=== PATIENT | male | born 1975 | race Caucasian/White ===

== ENCOUNTER 2016-11-05 20:17 | Emergency (ER) | payer BC ==
[~2016-11-05] VITALS: Ht 170.2 cm; Wt 71.3 kg
[~2016-11-05 20:17] MED LIST: ALLDSR/24; BUPR200T2; ERGO1CAP35; INSUINJ7; PANT40TA; QUET1TAB34; SYN25
[2016-11-05 20:40] VITALS: TEMP 36.7; Ht 170.2 cm; Wt 71.3 kg
[2016-11-05] MEDS ORDERED: PROPARACAINE HCL 0.5% OP SOLN 15 ML BTL OP STA (20:59)
[2016-11-05] MEDS ORDERED: ARTIFICIAL TEARS OP OINT 3.5 GM TUBE OP ONE (21:30)
[2016-11-05 21:48] VITALS: BP 112/85; PULSE 71; O2SAT 98
--- NOTE | 2016-11-05 22:34 | EMERGENCY ROOM VISIT NOTE ---
History First contact with patient: 20:58 Chief Complaint: EYE ASSESSMENT Stated Complaint: EYE ALL RED, HURTS, HEADACHE, ITCHY History of Present Illness The patient is a 41 year old male who presents to the Emergency Room with complaints of right eye irritation since around 2:30 to 3 PM this afternoon. The patient reports redness an itchy sensation. The patient cannot rule out the possibility of foreign body as he has been outside extensively the past few days. He denies any recent runny nose, congestion, cough or sore throat. He has not had any significant drainage from the eye. The patient is a type I diabetic. He does have regular checks, and denies any history of glaucoma. Tetanus immunization is up-to-date. Review of Systems 10 system review was performed and was negative except for pertinent positives and negatives as indicated in history of present illness Past Medical/Surgical History Medical Problems: (1) Asthma, Unspecified (2) Bipol I, Rec Epis Or Current Depr, In Partial Or Unspec Rem (3) Calculus Of Ureter (4) Celiac Disease (5) Gastroparesis (6) Hypothyroidism Nos (7) Syst Lupus Erythematosis (8) Type 1 diabetes mellitus Surgical Problems: (1) No history of previous surgery Family History Unremarkable Social History Smoking Status: Never Smoker Alcohol Use: occasionally Marital Status: Occupation Status: employed Current/Historical Medications Miscellaneous Medications Bupropion (Wellbutrin Sr) Ergocalciferol (Vitamin D Cap) Fexofenadine/Pseudoephedrine (Debbie-D 24HR 180/240MG *) Insulin Regular (Novolin-R) Levothyroxine (Synthroid *) Pantoprazole (Protonix) Quetiapine Fumarate (Seroquel) Allergies Coded Allergies: Gluten (Verified Allergy, Unknown, 03/18/06) Physical Exam Vital Signs Date Time Temp Pulse Resp B/P Pulse Ox O2 Delivery O2 Flow Rate FiO2 11/05/16 21:48 71 18 112/85 98 Room Air 11/05/16 20:40 36.7 77 18 127/86 96 Room Air Right Eye Acuity: 20/25 Left Eye Acuity: 20/25 Pain Rating (0-10): 2.0 Physical Exam CONSTITUTIONAL: Healthy and well nourished. Alert and oriented X 3 with positive affect. HEENT: Normocephalic, atraumatic. Pupils equal, round and reactive. Examination shows mild erythema of the right eye medial [place]hal region. No mucopurulent or bloody drainage. EOMs intact without discomfort. No foreign debris noted within the lower conjunctival sac. Ears and nares are clear. NECK: Full active range of motion without discomfort. RESPIRATORY: Clear to auscultation bilaterally with no wheezing, crackles, rhonchi or stridor. CARDIOVASCULAR: Regular rate and rhythm with no murmurs, rubs or gallops. INTEGUMENTARY: No rash or other significant dermatologic conditions noted. NEUROLOGIC: No focal neurologic deficits noted. Medical Decision & Procedures Medications Administered Medications (Trade) Dose Ordered Sig/Giovana Route Start Time Stop Time Status Last Admin Dose Admin Artificial Tears (Lacri-Lube Oph Oint) 1 appln NOW ONCE OP 11/05/16 21:30 11/05/16 21:31 DC 11/05/16 21:35 1 APPLN Procedure 2 Alcaine eyedrops were instilled into each eye. This did relieve the patient' s right eye discomfort. Automatic tonometry was used with normal intraocular pressures of 16.5 of the affected right eye, 18.5 of the left eye. Slit lamp exam was then performed to show no evidence for foreign debris within the lower conjunctival sac. No evidence for iritis. Negative cell and flare. Negative hyphema. Fluorescein exam shows no evidence for corneal abrasions or other lesions. There is fluorescein uptake within the medial conjunctival region. No obvious foreign bodies noted within the conjunctiva. ED Course Patient history and physical exam were performed. Nurse's notes were reviewed. Pressure tonometry, slit lamp and fluorescein exam were all normal. The patient was dispensed Lacri-Lube, and encouraged to intermittently apply a cool compress to the eye. Ibuprofen or Tylenol as needed for pain. The patient was instructed to follow-up with his eye doctor if symptoms are not improving within the next 36-48 hours. Return to the emergency department for any significantly worsening symptoms or concerns. The patient was happy with plan of care, and denied any discomfort at the conclusion of my exam. Impression Primary Impression: Discomfort of right eye Departure Information Dispostion Home / Self-Care Condition GOOD Forms HOME CARE DOCUMENTATION FORM, IMPORTANT VISIT INFORMATION Patient Instructions My [facility] [employer] Additional Instructions Intermittently apply an ice pack for swelling. Use Lacri-Lube as needed for additional soothing relief. Ibuprofen or Tylenol if needed for pain. Follow-up with your eye doctor if symptoms are not improving within the next 24- 48 hours. Return to the Emergency Department for significantly worsening pain, visual disturbance or other concerning symptoms.
== END 2016-11-05 21:49 | disposition home or self-care (01) ==
LOC: C.EDB 20:18 → C.EDC 21:49
DX: H57.11 Ocular pain, right eye (principal); E10.9 Type 1 diabetes mellitus without complications; Z87.442 Personal history of urinary calculi; K90.0 Celiac disease; K31.84 Gastroparesis; E03.9 Hypothyroidism, unspecified; M32.9 Systemic lupus erythematosus, unspecified; Z79.4 Long term (current) use of insulin; Z79.899 Other long term (current) drug therapy

== ENCOUNTER 2023-10-03 20:20 | Inpatient (IN) ==
[2023-10-03] MEDS: SODIUM CHLORIDE 0.9% 1,000 ML IV SCH (20:52)
[2023-10-03] MEDS: KETOROLAC TROMETHAMINE 15 MG/ML VIAL IV ONE (20:53)
--- NOTE | 2023-10-03 20:53 | Emergency Department Note ---
Impression & Plan Acute flank pain, Hydronephrosis, Renal colic ED Provider Note NAME: CLINTON AVALOS AGE: 48 SEX: M : 1975 ARRIVES VIA: Walk-In INFORMANT: Patient ED PROVIDER(S): Gustavo Jones DO CHIEF COMPLAINT: right flank pain HPI: Patient is a 48-year-old male with a past medical history of diabetes, celiac disease for right flank pain rating to the right lower quadrant. Associate with nausea but no vomiting. Denies any headache or change in vision. No chest pain or shortness of breath. Symptoms have been present further over a week. He admits to dysuria urgency and frequency. No other exacerbating or remitting factors. He notes this feels like his previous kidney stones. He does have some dysuria. ADDITIONAL HISTORY OBTAINED: Per HPI Chronic Medical/Social Conditions Affecting Care: Per HPI PAST MEDICAL HISTORY:See Below PAST SURGICAL HISTORY:See Below FAMILY HISTORY:See Below SOCIAL HISTORY:See Below HOME MEDICATIONS:See Below ALLERGIES:See Below VITALS:See Below PHYSICAL EXAMINATION: GENERAL: Sitting up in bed, alert, uncomfortable and slightly diaphoretic EYE EXAM: normal conjunctiva. PERRL and EOM's grossly intact. OROPHARYNX: mucous membranes are moist NECK: supple, no nuchal rigidity, no adenopathy, non-tender LUNGS: Clear to auscultation. Normal chest wall mechanics HEART: no murmurs, S1 normal and S2 normal ABDOMEN: abdomen soft, non-tender, normo-active bowel sounds, no masses, no rebound or guarding. BACK: Back is symmetrical on inspection and there is no deformity, no midline tenderness, no CVA tenderness. SKIN: no rashes and no bruising UPPER EXTREMITIES: upper extremities are grossly normal. LOWER EXTREMITIES: No pitting edema. NEURO EXAM: Normal sensorium, cranial nerves II-XII grossly intact, normal speech, no gross weakness of arms, no gross weakness of legs. MEDICAL DECISION MAKING: Patient is a 48-year-old male who presents ER for right flank pain which has been present for the past week. IV was established blood was obtained. Labs show no significant leukocytosis or anemia. BMP on LFTs bilirubin lipase is unremarkable. UA was initially extremely contaminated. Repeat was only slightly contaminated but did have leuks and whites. Patient was given IV Rocephin. He was given Toradol and morphine. CT shows a 10 mm stone with hydronephrosis. Patient was updated at bedside and with the signs of stone in duration and has been present combination with the pain discussed with the hospitalist for further evaluation management treatment. Consults/Care Managements Discussions: Per MDM Triage Nursing notes reviewed. Limited review of prior medical records performed Vital Signs: reviewed and remarkable for no significant abnormalities Differential diagnosis: Differential diagnoses includes but is not limited to gastritis, peptic ulcer disease, GERD, gallbladder disease, pancreatitis, small bowel obstruction, appendicitis, diverticulitis, hernia, urinary tract infection, torsion, perforation, trauma, infectious. ER treatment provided: See below Diagnostics interpreted by me include EKG and cardiac monitoring as listed below: -Cardiac Monitoring: An order was placed for continuous cardiac monitoring. The monitor shows a rate of 80 with sinus rhythm. -ECG: none -Laboratory studies:Interpreted by me as stated above in MDM and shown below. Imaging studies: Xrays: As interpreted by me:none CTs show: CT abdomen pelvis per my preliminary interpretation showed a large stone in the right distal ureter CT of the pelvis per radiology as described above Procedures:none Critical Care: None Past Med/Surg History Medical History (Updated 10/03/23 @ 22:56 by Gustavo Jones DO) Celiac disease Kidney stone Type 1 diabetes mellitus Family History (Updated 09/26/18 @ 20:33 by Anjel Preston) Other No significant family history Social History Smoking Status: Never smoker Preferred Language: Macedonian Feels Safe at Home: Yes Allergies Allergies Allergy/AdvReac Type Severity Reaction Status Date / Time gluten Allergy Unknown Celiac Verified 09/26/18 18:17 Disease Home Meds Home Medications Medication Instructions Recorded Confirmed bupropion HCl 300 mg 24 hr tablet, 300 mg PO QAM 09/18/18 09/26/18 extended release (Wellbutrin XL) clindamycin 1 %-benzoyl peroxide 5 1 applic topical DAILY 09/18/18 09/26/18 % topical gel dextroamphetamine-amphetamine 20 20 mg PO BID 09/18/18 09/26/18 mg tablet (Adderall) insulin aspart U-100 100 unit/mL 1 sliding scale dose subcut UD 09/18/18 09/26/18 subcutaneous cartridge (Novolog PenFill U-100 Insulin aspart) lamotrigine 200 mg tablet 300 mg PO HS 09/18/18 09/26/18 (Lamictal) levothyroxine 100 mcg tablet 100 mcg PO DAILY 09/18/18 09/26/18 (Synthroid) lorazepam 0.5 mg tablet (Ativan) 0.5 mg PO DAILY PRN Anxiety 09/18/18 09/26/18 metronidazole 0.75 % topical gel 1 applic topical BID 09/18/18 09/26/18 (Rosadan) quetiapine 150 mg tablet,extended 150 mg PO HS 09/18/18 09/26/18 release 24 hr (Seroquel XR) temazepam 30 mg capsule 30 mg PO HS PRN Sleep 09/26/18 09/26/18 Previous Rx's Medication Instructions Recorded oxycodone 5 mg tablet 5 - 10 mg (1 - 2 x 5 mg) PO Q4H 09/19/18 PRN pain #14 tabs oxycodone 5 mg tablet 5 mg PO Q6H PRN pain #14 tabs 09/26/18 Results & Data (ED) Vital Signs Vital Signs - 24 hr 10/03/23 20:23 10/03/23 20:36 10/03/23 20:38 Temperature 36.5 C Temperature Source Temporal Artery Scan Pulse Rate 91 H 82 80 Pulse Rhythm Regular Respiratory Rate 16 16 Blood Pressure 128/95 Blood Pressure Mean 106 Pulse Oximetry 96 96 Oxygen Delivery Method Room Air Room Air Sepsis Recent Fever Within 48 Hours No Sepsis New/Unexplained Change in Mental Status No Sepsis Action Taken by Nursing No Action Required Laboratory Data 10/03/23 20:37 10/03/23 20:37 Lab Results 10/03/23 10/03/23 10/03/23 Range/Units 20:37 21:50 21:56 WBC 10.42 (4.8-10.8) K/ul RBC 5.48 (4.70-6.10) M/uL Hgb 16.7 (14.0-18.0) g/dl Hct 47.1 (42.0-52.0) % MCV 85.9 (80.0-100.0) fL MCH 30.5 (25.0-34.0) pg MCHC 35.5 (32.0-36.0) g/dL RDW Std Deviation 34.7 L (36.4-46.3) fL RDW Coeff of Jose Daniel 11.2 L (11.5-14.5) % Plt Count 334 (130-400) K/uL MPV 10.1 (9.4-12.4) fL Immature Gran % (Auto) 0.2 % Neut % (Auto) 65.8 % Lymph % (Auto) 23.3 % [place] % (Auto) 8.1 % Eos % (Auto) 2.0 % Baso % (Auto) 0.6 % Neut # (Auto) 6.86 H (1.40-6.50) K/uL Lymph # (Auto) 2.43 (1.20-3.40) K/uL [place] # (Auto) 0.84 H (0.11-0.59) K/uL Eos # (Auto) 0.21 (0.00-0.50) K/uL Baso # (Auto) 0.06 (0.00-0.20) K/uL Immature Gran # (Auto) 0.02 (0.01-0.20) K/uL Sodium 141 (136-145) mmol/L Potassium 3.7 (3.5-5.1) mmol/L Chloride 107 (98-107) mmol/L Carbon Dioxide 26 (21-32) mmol/L Anion Gap 8 (3-11) BUN 15 (6-23) mg/dl Creatinine 0.80 (0.6-1.4) mg/dl Est Cr Clr Drug Dosing 104.4 ml/min Est GFR ( Amer) 121.6 ml/min Est GFR (Non-Af Amer) 104.9 ml/min BUN/Creatinine Ratio 18.8 (10-20) Glucose 82 (70-99(Fasting)) mg/dl POC Glucose 84 (70-99) mg/dl Calcium 9.2 (8.6-10.3) mg/dl Total Bilirubin 0.7 (0.2-1.0) mg/dl AST 18 (13-39) U/L ALT 21 (7-52) U/L Alkaline Phosphatase 62 (34-104) U/L Total Protein 6.8 (6.0-8.3) gm/dl Albumin 4.3 (3.4-5.0) gm/dl Globulin 2.5 (2.5-4.0) gm/dl Albumin/Globulin Ratio 1.7 (0.9-2) Lipase 14 (11-82) U/L Urine Color Dark Yellow Dark Yellow Urine Appearance Cloudy A Clear (Clear) Urine pH 5.0 5.5 (4.5-7.5) Ur Specific [place] 1.033 H 1.029 (1.000-1.030) Urine Protein Trace H Negative (Negative) Urine Glucose (UA) 2+ H 2+ H (Negative) Urine Ketones Trace H Trace H (Negative) Urine Blood 2+ H 1+ H (Negative) Urine Nitrite Negative Negative (Negative) Urine Bilirubin Negative Negative (Negative) Urine Urobilinogen Negative Negative (Negative) Ur Leukocyte Esterase Trace H Trace H (Negative) Urine WBC (Auto) 5-10 H 5-10 H (0-5) /hpf Urine RBC (Auto) 5-10 H 0-4 (0-4) /hpf U Hyaline Cast (Auto) 1-5 1-5 (0-5) /lpf U Epithel Cells (Auto) 20-30 H 5-10 H (0-5) /lpf Urine Bacteria (Auto) Negative Negative (Negative) Urine Crystals Not Reportable Calcium Oxalate Crystal Present A Present A (None Prsent) Urine Mucus Present A Present A (None Prsent) Administered Medications Sodium Chloride (Nss) 1,000 mls @ 999 mls/hr IV .Q1H1M BRAYDEN Stop: 10/03/23 23:00 Last Admin: 10/03/23 21:55 Dose: 999 mls/hr Documented By: Infusion: 10/03/23 21:53 Dose: Infused Documented By: Admin: 10/03/23 20:52 Dose: 999 mls/hr Documented By: ANDREE Discontinued Medications Sodium Chloride (Nss) 1,000 mls @ 999 mls/hr IV .Q1H1M ONE Stop: 10/03/23 22:00 Last Admin: 10/03/23 21:55 Dose: 999 mls/hr Documented By: ANDREE Ketorolac Tromethamine (Ketorolac Tromethamine 15 Mg/Ml Vial) 15 mg IV NOW ONE Stop: 10/03/23 20:50 Last Admin: 10/03/23 20:53 Dose: 15 mg Documented By: ANDREE Morphine Sulfate (Morphine Sulfate 10 Mg/Ml Carp/Vial) 6 mg IV NOW STA Stop: 10/03/23 22:33 Last Admin: 10/03/23 22:40 Dose: 6 mg Documented By: ANDREE Imaging Data Radiologist's Impression: Abdomen/Pelvis CT 10/03/23 20:48 Exam(s): CT ABDOMEN + PELVIS Without Contrast EXAM: CT Abdomen and Pelvis Without Intravenous Contrast CLINICAL HISTORY: Right flank Pain. TECHNIQUE: Axial computed tomography images of the abdomen and pelvis without intravenous contrast. CTDI is 20.15 mGy and DLP is 1021.19 mGy-cm. Automated exposure control was utilized for the study. A dose lowering technique was utilized adhering to the principles of ALARA. COMPARISON: Abdominal ultrasound 09/26/2018 FINDINGS: Lung bases: Unremarkable. No mass. No consolidation. ABDOMEN: Liver: Unremarkable. Gallbladder and bile ducts: Unremarkable. No calcified stones. No ductal dilation. Pancreas: Unremarkable. No ductal dilation. Spleen: Unremarkable. No splenomegaly. Adrenals: Unremarkable. No mass. Kidneys and ureters: Mild right hydronephrosis secondary to a 5 x 6 x 10 mm distal right ureteral calculus. The left kidney is unremarkable. Stomach and bowel: Unremarkable. No obstruction. No mucosal thickening. PELVIS: Appendix: Normal appendix. Bladder: Unremarkable. No stones. Reproductive: Unremarkable as visualized. ABDOMEN and PELVIS: Intraperitoneal space: Unremarkable. No free air. No significant fluid collection. Bones/joints: There are degenerative changes of the spine. No acute fracture. No dislocation. Soft tissues: Unremarkable. Vasculature: Unremarkable. No abdominal aortic aneurysm. Lymph nodes: Unremarkable. No enlarged lymph nodes. IMPRESSION: Mild right hydronephrosis secondary to a 5 x 6 x 10 mm distal right ureteral calculus. Electronically signed by: Tamera White MD 10/03/23 21:58 PM Discharge Plan Visit Data Chief Complaint: Kidney Stone Stated Complaint: UNABLE TO URINATE, PAIN ED Provider: Gustavo Jones Discharge Problem: Acute flank pain, Hydronephrosis, Renal colic Forms Stand Alone Forms: My [facility] [employer] Data Prescriptions Prescriptions: No Action temazepam 30 mg capsule 30 mg PO HS PRN (Reason: Sleep) oxycodone 5 mg tablet 5 mg PO Q6H PRN (Reason: pain) Qty: 14 0RF lamotrigine [Lamictal] 200 mg tablet 300 mg PO HS clindamycin-benzoyl peroxide 1-5 % gel 1 applic topical DAILY levothyroxine [Synthroid] 100 mcg tablet 100 mcg PO DAILY lorazepam [Ativan] 0.5 mg tablet 0.5 mg PO DAILY PRN (Reason: Anxiety) dextroamphetamine-amphetamine [Adderall] 20 mg tablet 20 mg PO BID metronidazole [Rosadan] 0.75 % gel 1 applic topical BID Novolog PenFill U-100 Insulin 100 unit/mL Cartridge 1 sliding scale dose SUBCUT UD Rx Instructions: Via insulin pump bupropion HCl [Wellbutrin XL] 300 mg tablet extended release 24 hr 300 mg PO QAM quetiapine [Seroquel XR] 150 mg tablet extended release 24 hr 150 mg PO HS oxycodone 5 mg tablet 5 - 10 mg PO Q4H PRN (Reason: pain) Qty: 14 0RF Referrals Referrals: Ramonita Pisano MD [Primary Care Provider] - Discharge Problem: Hydronephrosis Qualifiers: Hydronephrosis type: unspecified Qualified Code(s): N13.30 - Unspecified hydronephrosis
[2023-10-03 21:11] LABS: Appearance Urine Cloudy (Clear); Bacteria Urine Automated Negative (Negative); Bilirubin Urine Negative (Negative); Blood Urine 2+ (Negative); Color Urine Dark Yellow; Epithelial Cell Urine Auto 20-30 /lpf (0-5); Glucose Urine UA 2+ (Negative); Ketones Urine Trace (Negative); Leukocyte Esterase Urine Trace (Negative); Nitrite Urine Negative (Negative); Protein Urine Trace (Negative); Specific Gravity Urine 1.033 (1.000-1.030); Urobilinogen Urine Negative (Negative)
[2023-10-03 21:24] LABS: Albumin Level 4.3 gm/dl (3.4-5.0); Basophils # (auto) 0.06 K/uL (0.00-0.20); Basophils % (auto) 0.6 %; Bilirubin,Total 0.7 mg/dl (0.2-1.0); Calcium 9.2 mg/dl (8.6-10.3); Eosinophils # (auto) 0.21 K/uL (0.00-0.50); Hematocrit (blood only) 47.1 % (42.0-52.0); Hemoglobin 16.7 g/dl (14.0-18.0); Immature Granulocytes # (auto) 0.02 K/uL (0.01-0.20); Immature Granulocytes % (auto) 0.2 %; Lymphocytes # (auto) 2.43 K/uL (1.20-3.40); Lymphocytes % (auto) 23.3 %; Mean Corpuscular Hemoglobin 30.5 pg (25.0-34.0); Mean Corpuscular Hgb Conc 35.5 g/dL (32.0-36.0); Mean Corpuscular Volume 85.9 fL (80.0-100.0); Mean Platelet Volume 10.1 fL (9.4-12.4); Monocytes # (auto) 0.84 K/uL (0.11-0.59); Monocytes % (auto) 8.1 %; Neutrophils # (auto) 6.86 K/uL (1.40-6.50); Neutrophils % (auto) 65.8 %; Platelet Count 334 K/uL (130-400); Potassium 3.7 mmol/L (3.5-5.1); RDW Coefficient of Variation 11.2 % (11.5-14.5); RDW Standard Deviation 34.7 fL (36.4-46.3); Red Blood Count 5.48 M/uL (4.70-6.10); White Blood Count 10.42 K/ul (4.8-10.8)
[2023-10-03 21:25] LABS: Calcium Oxalate Crystals Urine Present (None Prsent); Mucus Urine Present (None Prsent)
[2023-10-03 21:30] LABS: Albumin Globulin Ratio 1.7 (0.9-2); BUN Creatinine Ratio 18.8 (10-20); Creatinine Clr Calc Pharmacy 104.4 ml/min; Est GFR (African American) 121.6 ml/min; Est GFR (Non-African American) 104.9 ml/min; Globulin 2.5 gm/dl (2.5-4.0); Total Protein 6.8 gm/dl (6.0-8.3)
[2023-10-03] MEDS: SODIUM CHLORIDE 0.9% 1,000 ML IV ONE (21:55)
--- NOTE | 2023-10-03 21:59 | CT Scan Report ---
Exam(s): CT ABDOMEN + PELVIS Without Contrast EXAM: CT Abdomen and Pelvis Without Intravenous Contrast CLINICAL HISTORY: Right flank Pain. TECHNIQUE: Axial computed tomography images of the abdomen and pelvis without intravenous contrast. CTDI is 20.15 mGy and DLP is 1021.19 mGy-cm. Automated exposure control was utilized for the study. A dose lowering technique was utilized adhering to the principles of ALARA. COMPARISON: Abdominal ultrasound 09/26/2018 FINDINGS: Lung bases: Unremarkable. No mass. No consolidation. ABDOMEN: Liver: Unremarkable. Gallbladder and bile ducts: Unremarkable. No calcified stones. No ductal dilation. Pancreas: Unremarkable. No ductal dilation. Spleen: Unremarkable. No splenomegaly. Adrenals: Unremarkable. No mass. Kidneys and ureters: Mild right hydronephrosis secondary to a 5 x 6 x 10 mm distal right ureteral calculus. The left kidney is unremarkable. Stomach and bowel: Unremarkable. No obstruction. No mucosal thickening. PELVIS: Appendix: Normal appendix. Bladder: Unremarkable. No stones. Reproductive: Unremarkable as visualized. ABDOMEN and PELVIS: Intraperitoneal space: Unremarkable. No free air. No significant fluid collection. Bones/joints: There are degenerative changes of the spine. No acute fracture. No dislocation. Soft tissues: Unremarkable. Vasculature: Unremarkable. No abdominal aortic aneurysm. Lymph nodes: Unremarkable. No enlarged lymph nodes. IMPRESSION: Mild right hydronephrosis secondary to a 5 x 6 x 10 mm distal right ureteral calculus. Electronically signed by: Tamera White MD 10/03/23 21:58 PM
[2023-10-03 22:13] LABS: Appearance Urine Clear (Clear); Bacteria Urine Automated Negative (Negative); Bilirubin Urine Negative (Negative); Blood Urine 1+ (Negative); Color Urine Dark Yellow; Glucose Urine UA 2+ (Negative); Ketones Urine Trace (Negative); Leukocyte Esterase Urine Trace (Negative); Nitrite Urine Negative (Negative); Protein Urine Negative (Negative); RBC Urine Automated 0-4 /hpf (0-4); Specific Gravity Urine 1.029 (1.000-1.030); Urobilinogen Urine Negative (Negative); pH Urine 5.5 (4.5-7.5)
[2023-10-03 22:25] LABS: Calcium Oxalate Crystals Urine Present (None Prsent); Mucus Urine Present (None Prsent)
[2023-10-03] MEDS: MoRPHine SULFATE 10 MG/ML CARP/VIAL IV STA (22:40)
--- NOTE | 2023-10-04 00:46 | History & Physical Report ---
Date of Service October 04, 2023 Assessment & Plan (1) Renal colic: Plan: 48-year-old male with past medical history significant for type 1 diabetes on insulin pump, hypothyroidism, polyglandular autoimmune syndrome, hyperlipidemia, diabetic retinopathy, asthma mild persistent, allergic sinusitis, celiac disease, sleepwalking and eating, attention 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 hyperactivity, history of kidney stones, bipolar 2 disorder presents with right renal colic. Patient states he is having right flank pain going on for the last 10 days. Pain is disturbing his sleep. As the pain is not getting better and also recently noted some blood in the urine and burning micturition came to the ER today. When he came in pain was 7/10 in severity. Currently after pain medication pain is improved. Normal bowel movements. Denies any fevers. No chest pain or shortness of breath. No cough. No headache. No runny nose or sore throat. Resting comfortably and hemodynamically stable. Renal colic Right side CT scan showing mild right hydronephrosis secondary to 5 x 10 mm distal right ureteral calculus N.p.o., IV fluids, IV morphine as needed P.o. Flomax Consult urology in a.m. Possible UTI Rocephin Follow cultures Type 1 diabetes On insulin pump added dextrose to fluids as patient had hypoglycemia close monitor. Asthma Continue home inhalers 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 hyperactivity Bipolar 2 disorder Continue home medications Hypothyroidism On Synthyroid GERD On omeprazole DVT prophylaxis SCDs Disposition Medical floor Full code History of Present Illness Chief Complaint: Right renal colic Primary Care Provider: Ramonita Pisano MD 48-year-old male with past medical history significant for type 1 diabetes on insulin pump, hypothyroidism, polyglandular autoimmune syndrome, hyperlipidemia, diabetic retinopathy, asthma mild persistent, allergic sinusitis, celiac dise ase, sleepwalking and eating, attention 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 hyperactivity, history of kidney stones, bipolar 2 disorder presents with right renal colic. Patient states he is having right flank pain going on for the last 10 days. Pain is disturbing his sleep. As the pain is not getting better and also recently noted some blood in the urine and burning micturition came to the ER today. When he came in pain was 7/10 in severity. Currently after pain medication pain is improved. Normal bowel movements. Denies any fevers. No chest pain or shortness of breath. No cough. No headache. No runny nose or sore throat. Resting comfortably and hemodynamically stable. Past medical history. As mentioned above Past surgical history. Colonoscopy and EGD. Foot surgery. Removal of kidney stone, over 2 cm in 2005. Social history. . No smoking. Alcohol socially. No drug use. Family history. Father had dementia. Diabetes. Kidney stones. Mother had a heart attack at age 68. Maternal grandmother had breast cancer. Allergies Allergy/AdvReac Type Severity Reaction Status Date / Time gluten Allergy Unknown Celiac Verified 10/03/23 23:52 Disease Home Medications Medication Instructions Recorded Confirmed Type bupropion HCl 300 mg 24 hr tablet, 300 mg PO QAM 09/18/18 10/03/23 History extended release (Wellbutrin XL) dextroamphetamine-amphetamine 20 20 mg PO QAM 09/18/18 10/03/23 History mg tablet (Adderall) levothyroxine 100 mcg tablet 100 mcg PO DAILY 09/18/18 10/04/23 History (Synthroid) lorazepam 0.5 mg tablet (Ativan) 0.5 mg PO DAILY PRN Anxiety 09/18/18 10/04/23 History quetiapine 150 mg tablet,extended 150 mg PO HS 09/18/18 10/04/23 History release 24 hr (Seroquel XR) insulin aspart U-100 100 unit/mL 70 unit continuous subcutaneous 10/03/23 10/03/23 History subcutaneous solution infusion DAILY omega-3 fatty acids 1,000 mg 1,000 mg PO BID 10/03/23 10/04/23 History capsule albuterol sulfate 90 mcg/actuation 2 puff inhalation Q4H PRN Wheezing 10/04/23 10/04/23 History aerosol inhaler atorvastatin 20 mg tablet 20 mg PO QAM 10/04/23 10/04/23 History benzonatate 100 mg capsule 100 mg PO TID PRN Cough 10/04/23 10/04/23 History fexofenadine 180 mg tablet 180 mg PO DAILY PRN Allergy 10/04/23 10/04/23 History Symptoms fluticasone 250 mcg-salmeterol 50 1 inh inhalation BID 10/04/23 10/04/23 History mcg/dose blistr powdr for inhalation fluticasone propionate 50 2 spray intranasal DAILY 10/04/23 10/04/23 History mcg/actuation nasal spray,suspension ketoconazole 2 % shampoo 1 applic topical .2XW 10/04/23 10/04/23 History lamotrigine 200 mg tablet 200 mg PO DAILY 10/04/23 10/04/23 History omeprazole 20 mg capsule,delayed 20 mg PO DAILYBB 10/04/23 10/04/23 History release selenium sulfide 2.5 % lotion 1 applic topical DAILY 10/04/23 10/04/23 History sildenafil 50 mg tablet 50 mg PO .UD PRN Sexual Activity 10/04/23 10/04/23 History temazepam 30 mg capsule 30 mg PO HS PRN Insomnia 10/04/23 10/04/23 History Past Med/Surg History Medical History (Updated 10/03/23 @ 22:56 by Gustavo Jones DO) Celiac disease Kidney stone Type 1 diabetes mellitus Family History (Updated 09/26/18 @ 20:33 by Anjel Preston) Other No significant family history Social History Smoking Status: Never smoker Hx Alcohol Use: Yes Alcohol type: beer and hard liquor Hx Substance Use: No Preferred Language: [place] Communication Ability: Effective Silk Spotter Required: No Beliefs That Will Affect Care: None Current Living Situation: Spouse Feels Safe at Home: Yes Safety Concerns: Feels Safe At This Time Assistive Devices: Glasses Review of Systems Review of Systems: All systems reviewed & are unremarkable except as noted in HPI & below Physical Exam Physical Exam: General- Not in distress Head- atraumatic Eyes- PERRL. ENT- oropharynx clear Neck- supple, no JVD. Lungs- clear to auscultation no wheezing or crackles. Heart- regular rhythm; no murmur, no gallop. Abdomen- normal bowel sounds, soft, nontender, no distension. Extremities- no pretibial edema, no erythema seen. Neuro- alert, oriented PERRL no facial palsy; no dysarthria; Results & Data Results & Data Vital Signs (Past 12 Hours) Vital Signs Temp Pulse Resp BP Pulse Ox O2 Del Method 10/03/23 20:38 80 10/03/23 20:36 82 16 96 Room Air 10/03/23 20:23 36.5 C 91 H 16 128/95 96 Room Air Diagnostic Findings Laboratory Results WBC 10.42 K/ul (4.8-10.8) 10/03/23 20:37 RBC 5.48 M/uL (4.70-6.10) 10/03/23 20:37 Hgb 16.7 g/dl (14.0-18.0) 10/03/23 20:37 Hct 47.1 % (42.0-52.0) 10/03/23 20:37 MCV 85.9 fL (80.0-100.0) 10/03/23 20: MCH 30.5 pg (25.0-34.0) 10/03/23 20: MCHC 35.5 g/dL (32.0-36.0) 10/03/23 20: RDW Std Deviation 34.7 fL (36.4-46.3) L 10/03/23 20: RDW Coeff of Jose Daniel 11.2 % (11.5-14.5) L 10/03/23 20: Plt Count 334 K/uL (130-400) 10/03/23 20:37 MPV 10.1 fL (9.4-12.4) 10/03/23 20:37 Immature Gran % (Auto) 0.2 % 10/03/23 20:37 Neut % (Auto) 65.8 % 10/03/23 20:37 Lymph % (Auto) 23.3 % 10/03/23 20:37 [place] % (Auto) 8.1 % 10/03/23 20:37 Eos % (Auto) 2.0 % 10/03/23 20:37 Baso % (Auto) 0.6 % 10/03/23 20:37 Neut # (Auto) 6.86 K/uL (1.40-6.50) H 10/03/23 20:37 Lymph # (Auto) 2.43 K/uL (1.20-3.40) 10/03/23 20:37 [place] # (Auto) 0.84 K/uL (0.11-0.59) H 10/03/23 20:37 Eos # (Auto) 0.21 K/uL (0.00-0.50) 10/03/23 20:37 Baso # (Auto) 0.06 K/uL (0.00-0.20) 10/03/23 20:37 Immature Gran # (Auto) 0.02 K/uL (0.01-0.20) 10/03/23 20:37 Sodium 141 mmol/L (136-145) 10/03/23 20:37 Potassium 3.7 mmol/L (3.5-5.1) 10/03/23 20:37 Chloride 107 mmol/L (98-107) 10/03/23 20:37 Carbon Dioxide 26 mmol/L (21-32) 10/03/23 20:37 Anion Gap 8 (3-11) 10/03/23 20:37 BUN 15 mg/dl (6-23) 10/03/23 20:37 Creatinine 0.80 mg/dl (0.6-1.4) 10/03/23 20:37 Est Cr Clr Drug Dosing 104.4 ml/min 10/03/23 20:37 Est GFR ( Amer) 121.6 ml/min 10/03/23 20:37 Est GFR (Non-Af Amer) 104.9 ml/min 10/03/23 20:37 BUN/Creatinine Ratio 18.8 (10-20) 10/03/23 20:37 Glucose 82 mg/dl (70-99(Fasting)) 10/03/23 20:37 POC Glucose 84 mg/dl (70-99) 10/03/23 21:56 Calcium 9.2 mg/dl (8.6-10.3) 10/03/23 20:37 Total Bilirubin 0.7 mg/dl (0.2-1.0) 10/03/23 20:37 AST 18 U/L (13-39) 10/03/23 20:37 ALT 21 U/L (7-52) 10/03/23 20:37 Alkaline Phosphatase 62 U/L (34-104) 10/03/23 20:37 Total Protein 6.8 gm/dl (6.0-8.3) 10/03/23 20:37 Albumin 4.3 gm/dl (3.4-5.0) 10/03/23 20:37 Globulin 2.5 gm/dl (2.5-4.0) 10/03/23 20:37 Albumin/Globulin Ratio 1.7 (0.9-2) 10/03/23 20:37 Lipase 14 U/L (11-82) 10/03/23 20:37 Urine Color Dark Yellow 10/03/23 21:50 Urine Appearance Clear (Clear) 10/03/23 21:50 Urine pH 5.5 (4.5-7.5) 10/03/23 21:50 Ur Specific [place] 1.029 (1.000-1.030) 10/03/23 21:50 Urine Protein Negative (Negative) 10/03/23 21:50 Urine Glucose (UA) 2+ (Negative) H 10/03/23 21:50 Urine Ketones Trace (Negative) H 10/03/23 21:50 Urine Blood 1+ (Negative) H 10/03/23 21:50 Urine Nitrite Negative (Negative) 10/03/23 21:50 Urine Bilirubin Negative (Negative) 10/03/23 21:50 Urine Urobilinogen Negative (Negative) 10/03/23 21:50 Ur Leukocyte Esterase Trace (Negative) H 10/03/23 21:50 Urine WBC (Auto) 5-10 /hpf (0-5) H 10/03/23 21:50 Urine RBC (Auto) 0-4 /hpf (0-4) 10/03/23 21:50 U Hyaline Cast (Auto) 1-5 /lpf (0-5) 10/03/23 21:50 U Epithel Cells (Auto) 5-10 /lpf (0-5) H 10/03/23 21:50 Urine Bacteria (Auto) Negative (Negative) 10/03/23 21:50 Urine Crystals Not Reportable 10/03/23 20:37 Calcium Oxalate Crystal Present (None Prsent) A 10/03/23 21:50 Urine Mucus Present (None Prsent) A 10/03/23 21:50 Impressions Abdomen/Pelvis CT 10/03/23 20:48 Exam(s): CT ABDOMEN + PELVIS Without Contrast EXAM: CT Abdomen and Pelvis Without Intravenous Contrast CLINICAL HISTORY: Right flank Pain. TECHNIQUE: Axial computed tomography images of the abdomen and pelvis without intravenous contrast. CTDI is 20.15 mGy and DLP is 1021.19 mGy-cm. Automated exposure control was utilized for the study. A dose lowering technique was utilized adhering to the principles of ALARA. COMPARISON: Abdominal ultrasound 09/26/2018 FINDINGS: Lung bases: Unremarkable. No mass. No consolidation. ABDOMEN: Liver: Unremarkable. Gallbladder and bile ducts: Unremarkable. No calcified stones. No ductal dilation. Pancreas: Unremarkable. No ductal dilation. Spleen: Unremarkable. No splenomegaly. Adrenals: Unremarkable. No mass. Kidneys and ureters: Mild right hydronephrosis secondary to a 5 x 6 x 10 mm distal right ureteral calculus. The left kidney is unremarkable. Stomach and bowel: Unremarkable. No obstruction. No mucosal thickening. PELVIS: Appendix: Normal appendix. Bladder: Unremarkable. No stones. Reproductive: Unremarkable as visualized. ABDOMEN and PELVIS: Intraperitoneal space: Unremarkable. No free air. No significant fluid collection. Bones/joints: There are degenerative changes of the spine. No acute fracture. No dislocation. Soft tissues: Unremarkable. Vasculature: Unremarkable. No abdominal aortic aneurysm. Lymph nodes: Unremarkable. No enlarged lymph nodes. IMPRESSION: Mild right hydronephrosis secondary to a 5 x 6 x 10 mm distal right ureteral calculus. Electronically signed by: Tamera White MD 10/03/23 21:58 PM Code Status & VTE Plan VTE Prophylaxis Plan VTE Prophylaxis will be ordered: Yes
[2023-10-04] MEDS: TAMSULOSIN HCL 0.4 MG CAP PO ONE (00:58)
[2023-10-04] MEDS: cefTRIAXone SODIUM 2,000 MG/50 ML BAG IV STA (00:59)
[2023-10-04] MEDS ORDERED: BENZONATATE 100 MG CAPSULE PO PRN (01:54)
[2023-10-04] MEDS ORDERED: CARBOHYDRATES FOR HYPOGLYCEMIA PO PRN (01:54)
[2023-10-04] MEDS ORDERED: GLUCOSE 10 TAB/TUBE PO PRN (01:54)
[2023-10-04] MEDS ORDERED: TEMAZEPAM 15 MG CAPSULE PO PRN (01:54)
[2023-10-04] MEDS ORDERED: FEXOFENADINE HCL 180 MG TAB PO PRN (01:54)
[2023-10-04] MEDS ORDERED: ALBUTEROL HFA 8 GM INHALER INH PRN (01:54)
[2023-10-04] MEDS ORDERED: GLUCOSE 40% GEL 15 GM TUBE PO PRN (01:54)
[2023-10-04] MEDS ORDERED: LORazepam 0.5 MG TAB PO PRN (01:54)
[2023-10-04] MEDS ORDERED: GLUCAGON FOR INJ 1 MG VIAL SQ PRN (01:54)
[2023-10-04] MEDS: DEXTROSE 50% 50 ML SYRINGE IV PRN (02:23)
[2023-10-04] MEDS: SODIUM CHLORIDE 0.9% 1,000 ML IV SCH (02:28)
[2023-10-04] MEDS: INSULIN ASPART PER UNIT CHARGE SC SCH (02:28)
[2023-10-04] MEDS ORDERED: INSULIN ASPART PER UNIT CHARGE SC SCH ×2 (02:30→09:00)
[2023-10-04] MEDS: D5W AND NSS 1,000 ML IV SCH (02:33)
[2023-10-04] MEDS ORDERED: INSULIN ASPART 100 UNITS/ML VIAL SC PRN (03:00)
[2023-10-04] MEDS: INSULIN, Rapid-Acting PUMP SCH ×3 (03:51→17:30)
[2023-10-04] MEDS ORDERED: Nursing to Pharmacy Communication SCH (04:15)
[2023-10-04] MEDS: PANTOprazole 40 MG TAB PO SCH (06:09)
[2023-10-04] MEDS: LEVOTHYROXINE SODIUM 100 MCG TABLET PO SCH (06:09)
[2023-10-04 07:12] LABS: Estimated Average Glucose 180 mg/dl; Hemoglobin A1C 7.9 % (4.5-5.6)
[2023-10-04] MEDS: ACETAMINOPHEN 325 MG TAB PO PRN (07:23)
[2023-10-04] MEDS: MoRPHine SULFATE 4 MG/ML 1 ML CARP\\VIAL IV PRN (08:11)
--- OUTSIDE RECORDS SUMMARY | 2023-10-04 08:32 | External Medical Summary ---
Author Name Unknown Address Unknown Organization [id number]:LABORATORY [facility] – [place] - [address] [facility] [address] Laboratory Report Ordering Provider Test Date Status NOLAN AC 09/04/2023 14:26:31 Final Observation Date Value Abnormality Reference (Units ) Status SARS Coronavirus 2 09/04/2023 14:26:31 Negative N egative Final No SARS-CoV2 Coronavirus RNA detected by PCR (amplified probe).
This automated test was developed and its performance characteristics determined by [facility]. It has not been cleared or approved by the U.S. Food and Drug Administration (FDA). FDA does not require this test to go thru premarket FDA review. This test is used for clinical purposes. It should not be regarded as investigational or for research. This laboratory is certified under the Clinical Laboratory Improvement Amendments (CLIA) as qualified to perform high complexity clinical laboratory testing.

This test is a nucleic acid amplification test (NAAT), a reverse transcriptase polymerase chain reaction (RT-PCR) test, or a Centers for Disease Control-acceptable equivalent. The test is performed in a high complexity Clinical Laboratory Improvement Amendments-(CLIA) certified laboratory. The test is acceptable for SARS-CoV-2 diagnosis, surveillance, and travel within the [place] and to most countries. Please check with local testing authorities about requirements before travel.

The validation of bronchial specimens, tracheal aspirates, and sputum for this assay was developed and performance characteristics determined by [facility]. The validation of alternate specimen types has not been cleared or approved by the U.S. Food and Drug Administration (FDA). It has been determined that such clearance or approval is not necessary. Influenza virus A RNA [Prese nce] in Specimen by PERRY with probe detection 09/04/2023 14:26:31 Negative Negative Final No Influenza A RNA detected by PCR (amplified probe) Influenza virus B RNA [Prese nce] in Specimen by PERRY with probe detection 09/04/2023 14:26:31 Negative Negative Final No Influenza B RNA detected by PCR (amplified probe) Respiratory syncytial virus RNA [Identifier] in Specimen by PERRY with probe detection 09/04/2023 14:26:31 Negative Negative Final No Respiratory Syncytial Vir us RNA detected by PCR (amplified probe) Performing Location LABORATORY [address] [place]. [facility] [id number]
--- OUTSIDE RECORDS SUMMARY | 2023-10-04 08:32 | External Medical Summary ---
Author Name Unknown Address Unknown Organization [id number]:LAB[facility]ATORY [facility] – [place] - [address] [place] [address] Laboratory Report Ordering Provider Test Date Status SHERRI VALDES 08/06/2023 14:58:54 Final Observation Date Value Abnormality Reference (Units ) Status LDL, (direct) 08/06/2023 14:58:54 90 <=129 (mg/dL) Final LDL Cholesterol Reference Ra nges (mg/dL):
<70 Target level for high risk ASCVD patient
<100 Optimal for general population
100-129 Near optimal for general population
130-159 Borderline high
160-189 High
>=190 Very high Performing Location LABORATORY [facility] - [address] [place] [id number]
--- OUTSIDE RECORDS SUMMARY | 2023-10-04 08:32 | External Medical Summary | Summary of Care ---
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 Name Role Phone Ramonita Pisano MD Primary Care Provider Reason for Visit * Reason Comments eRx-Medication Refill Encounter Details Date Type Department Care Team (Late st Contact Info) Description 08/30/2023 Refill General Internal Medicine [facility] [address] [place] [address] Ramonita Pisano MD [address] [place] [address] Type 1 diabetes mellitus with hemoglobin A1c goal of less than 7.0% ([facility]) Allergies Active Allergy Reactions Criticality Noted Date Comments Gluten Diarrhea Medium 07/26/2010 History of Celiacs disease documented as of this encounter (statuses as of 08/30/2023) Medications Medication Sig Dispensed Refills Start Date End Date Status SEROQUEL 100 MG PO TABS at bedtime 0 0 03/15/2009 Active SEROQUEL 50 MG PO TABS at bedtime 0 11 03/15/2009 Active AMPHETAMINE SALT COMBO 10 MG PO TABS 1-2 tabs twice daily 0 0 03/15/2009 Active ONETOUCH ULTRASOFT LANCETS MISC use up to 10 times a day one month supply 11 03/15/2009 Active BUPROPION HCL (XL) 300 MG PO [id number]: Bipolar disorder (HCC) 1 TABLET DAILY 0 12/11/2011 Active TEMAZEPAM 30 MG PO CAPS at bedtime daily as needed 0 Active fluticasone (FLONASE) 50 MCG/ACT nasal spray INHALE 2 SPRAYS INTO EACH NOSTRIL ONE TIME DAILY 1 Bottle 5 06/20/2015 Active fexofenadine (KHAI) 180 MG TabletIndication s:Atopic dermatitis Take 1 Tablet by mouth daily as needed for Allergies. 30 Tab 11 09/26/2015 Active Insulin Infusion Pump Supplies MISCIndications: DM type 1 nursing care encounter (HCC) As directed 3 Box Dosing Unit 3 01/03/2017 Active LORAzepam (ATIVAN) 0.5 MG Tablet Take 1 Tablet by mouth at bedtime as needed for Anxiety. 30 Tab 0 02/06/2017 Active Clindamycin Phos-Benzoyl Perox 1-5 % gelIndications:A cne, unspecified acne type Apply topically to affected area 2 times a day. To affected area (after washing and drying area) on acne 60 g 11 07/14/2018 Active metronidazole (METROGEL) 0.75 % gel Apply topically to affected area 2 times a day. On cheek 45 g 11 07/14/2018 Active tacrolimus (PROTOPIC) 0.1 % ointmentIndicati ons:Lichen planus Apply to purple patch in the genital area twice daily 30 g 0 03/13/2019 Active hydrocortisone 2.5 % creamIndications :Seborrheic dermatitis Apply to dry patches on the face 2-3 x's per week as needed for flares. 20 g 1 03/13/2019 Active lamoTRIgine (LAMICTAL) 200 MG Tablet Take 1 Tablet by mouth in the morning. 0 09/12/2019 Active Fluticasone-Salm eterol 250-50 MCG/DOSE Inhalation Aerosol Powder Breath Activated (Advair Diskus) INHALE 1 PUFF BY MOUTH TWO TIMES DAILY 1 Each 11 09/29/2021 Active Glucagon Emergency 1 MG Injection KitIndications:H ypoglycemia As directed 2 Kit 5 09/29/2021 Active Levothyroxine Sodium 100 MCG Oral Tablet (Levoxyl)Indicat ions:Hypothyroid ism TAKE 1 TABLET BY MOUTH EVERY DAY AT LEAST 30 MINUTES BEFORE BREAKFAST OR OTHER MEDICATIONS 90 Tablet 3 12/30/2022 Active Albuterol Sulfate HFA 108 (90 Base) MCG/ACT Inhalation Aerosol Solution Use two puffs every four hours as needed for wheezing 48 g 3 04/04/2023 Active OneTouch Ultra In Vitro Strip (Glucose Blood)Indication s:Type 1 diabetes mellitus with hemoglobin A1c goal of less than 7.0% ([facility]) USE TO TEST BLOOD SUGAR UP TO 7 TIMES DAILY. 700 Strip 1 04/04/2023 Active Fluticasone-Salm eterol 250-50 MCG/ACT Inhalation Aerosol Powder Breath Activated (Advair Diskus) Inhale 1 Puff by mouth in the morning and 1 Puff before bedtime. 3 Each 3 04/04/2023 Active Benzonatate 100 MG Oral Capsule (Tessalon Perles)Indicatio ns:Viral URI with cough TAKE 1 CAPSULE BY MOUTH THREE TIMES DAILY NEEDED FOR COUGH 90 Capsule 0 04/20/2023 Active Omeprazole 20 MG Oral Capsule Delayed Release (PriLOSEC)Indica tions:Gastroesop hageal reflux disease without esophagitis TAKE 1 CAPSULE BY MOUTH EVERY DAY 1 HOUR BEFORE THE FIRST MEAL OF THE DAY 90 Capsule 1 05/05/2023 Active Atorvastatin Calcium 20 MG Oral Tablet (Lipitor)Indicat ions:Hyperlipide ashley with target LDL less than 100 TAKE 1 TABLET BY MOUTH EVERY DAY 90 Tablet 1 07/22/2023 Active Sildenafil Citrate 50 MG Oral TabletIndication s:Erectile dysfunction, unspecified erectile dysfunction type TAKE 1 TABLET BY MOUTH ONCE FOR ONE DOSE 1-4 HOURS BEFORE INTERCOURSE. NO MORE THAN 1 DOSE IN 24 HOURS 10 Tablet 08/01/2023 Active Selenium Sulfide 2.5 % External LotionIndication s:Seborrheic dermatitis Apply topically to affected area daily. In back for 2 weeks or until gone 120 mL 08/06/2023 Active Ketoconazole 2 % External Shampoo (Nizoral)Indicat ions:Seborrheic dermatitis APPLY TOPICALLY TO AFFECTED AREA(S) OF SCALP 2 TO 3 TIMES PER WEEK 120 mL 08/06/2023 Active Austwell-3 Fish Oil 1000 MG Oral Capsule (Austwell-3)Indicat ions:Tinnitus aurium, bilateral Take 1 Capsule by mouth in the morning and 1 Capsule before bedtime. 60 Capsule 08/06/2023 Active Insulin Aspart 100 UNIT/ML Injection Solution (NovoLOG)Indicat ions:Type 1 diabetes mellitus with hemoglobin A1c goal of less than 7.0% ([facility]) INJECT 70 UNITS EVERY DAY VIA INSULIN PUMP 60 mL 1 08/30/2023 Active Insulin Aspart 100 UNIT/ML Injection Solution (NovoLOG)Indicat ions:Type 1 diabetes mellitus with hemoglobin A1c goal of less than 7.0% ([facility]) INJECT 70 UNITS EVERY DAY PER INSULIN PUMP 60 mL 2 12/19/2022 08/30/19 24 Discontinued Hospital, Clinic, or Other Facility Administered Medication Ordered Dose Route Frequency Start Date End Date Status Albuterol Sulfate (Proventil) (2.5 MG/3ML) 0.083% inhalation solution 2.5 mgIndications:Mild persistent asthma without complication 2.5 mg NEBULIZER ONCE PRN 08/06/2023 08/05/2024 Acti ve documented as of this encounter (statuses as of 08/30/2023) Active Problems Problem Noted Date Diagnosed Date Sleep walking and eating 04/07/2023 Elevated hemoglobin 04/04/2023 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 diagnosed at 17 ICD-10 update of inactive term Bipolar disorder, current ep isode mixed, moderate 01/28/2021 Overview: Dr Schmitz documented as of this encounter (statuses as of 08/30/2023) Immunizations Name Administration Dates Next Due COVID-19 mRNA, LNP-s, No Pre serve, 2-Dose Series (Moderna) 09/03/2020,07/31/2020 Covid-19, Mrna, Lnp-s, Pf, B ivalent, 30 Mcg, IM, 12 yrs and above (Pfizer) 06/22/2022 Hepatitis B, 20+ yrs 01/15/2017,08/14/19 17,07/10/2016,09/25 Pneumococcal Conjugate Vacci ne, 20-valent ([id number]) 05/10/2022 Pneumococcal Polysaccharide PPV23 (Pneumovax) 07/14/2018,12/06/2006 Seasonal Influenza, PF, 6 M & above, IM , (FluLaval or Fluzone) 04/04/2023,05/10/2022,09/29/2021,03/23,09/29/2019 TD, Preservative Free 07/10/2016 TDAP (age 11 and older)(Adacel) 04/16/2004 documented as of this encounter Social History Tobacco Use Types Packs/Day Years Used Date Smoking Tobacco: Never Smokeless Tobacco: Never Alcohol Use Standard Drinks/Week Comments Yes 0 (1 standard drink = 0.6 oz pur e alcohol) socially PHQ-2 Answer Date Recorded PHQ-2 Score 9 05/12/2020 Hunger Vital Sign Answer Date Recorded Within the past 12 months, y ou worried that your food would run out before you got the money to buy more. Never true 01/28/20 21 Within the past 12 months, t he food you bought just didn't last and you didn't have money to get more. Never true 01/27/2021 Sex and Gender Information Value Date Recorded Sex Assigned at Male 09/16/2019 3:17 PM EDT Gender Identity Male 09/16/2019 3:17 PM EDT Sexual Orientation Choose not to disclose 2019 3:17 PM EDT Job Start Date Occupation Industry Not on file Not on file Not on file documented as of this encounter Miscellaneous Notes * Telephone Encounter - Adriana Ruiz RPh - 08/30/2023 10:44 AM ESTSigned Prescriptions: Disp Refills Insulin Aspart 100 UNIT/ML Injection Solut*60 mL 1 Sig: INJECT 70 UNITS EVERY DAY VIA INSULIN PUMPAuthorizing Provider: Susana PISANO User: ADRIANA RUIZ--- documented in this encounter Plan of Treatment Upcoming Encounters Date Type Department Care Team (Late st Contact Info) Description 09/05/2023 9:20 AM EST Office Visit Sleep Disorders Ctr [facility] [address] [phone] Mi Rankin, DO [address] [address] 09/16/2023 1:30 PM EDT Office Visit Dermatology, [facility] [address] [address] Anaid Nicole PA-C [address] [address] 12/10/2023 9:30 AM EDT Office Visit Otolaryngology [facility] [address] [address] Juliocesar Perry, DO [address] [address] Marisa Molina Au.D. [address] [address] 01/16/2024 1:00 PM EDT Office Visit General Internal Medicine [facility] [address] [facility] [address] Ramonita Pisano MD [address] [place] [address] Health Maintenance Due Date Last Done Comments *SPIROMETRY ONCE FOR ASTHMA-ADULT 08/26/2016 Cologuard 2019 Fecal Occult Blood Test 2019 Sigmoidoscopy 2019 Diabetic Eye Exam 09/15/2020 09/16/2019, , 09/08/2015, Additional history exists Depression Screening 05/12/2021 05/12/2020 Colonoscopy 06/10/2022 06/10/2012, 06/10/2012 Colorectal Cancer Screening 06/10/2022 COVID-19 Vaccine ( season) 2023 06/22/2022, 05/01/2021, 09/03/2020, Additional history exists Albumin/Creatinine Ratio 12/22/2023 023, 05/10/2022, 05/01/2021, Additional history exists HbA1c 02/04/2024 08/06/2023, 03/09, 12/21/2022, Additional history exists Diabetic Foot Exam 08/06/2024 08/06/2023, 1 07/10/2021, 05/01/2021, Additional history exists GFR 08/06/2024 08/06/2023, 12/06, 05/10/2022, Additional history exists TSH 08/06/2024 08/06/2023, 03/09, 12/21/2022, Additional history exists DTaP,Tdap,and Td Vaccines (3 - Td or Tdap) 07/10/2026 07/10/2016, 04/16/2004 Lipid Panel 08/06/2028 08/06/2023, 12/06, 05/10/2022, Additional history exists Hepatitis B Completed 01/15/2017, 01/2017, 07/10/2016, Additional history exists Pneumococcal Vaccine: Pediatrics (0 to 5 Years) and At-Risk Patients (6 to 64 Years) Completed 05/10/2022, 07/14/2018, 12/06/2006 Influenza Vaccine (FLU shot) Completed , 05/10/2022, 09/29/2021, Additional history exists GARDASIL-HPV IMMUNIZATION SERIES Aged Out No longer eligible based on patient's age to complete this topic MENINGOCOCCAL (MENACTRA/MENVEO) Aged Out No longer eligible based on patient's age to complete this topic documented as of this encounter Medical Devices Not on filedocumented as of this encounter Visit Diagnoses Diagnosis Type 1 diabetes mellitus with hemoglobin A1c goal of less than 7.0% ([facility]) documented in this encounter Care Teams Steak Sauce Maker Relationship Specialty Start Date End Date Ramonita Pisano MD [address] [place] [address] PCP - General 02/25/09 documented as of this encounter
--- OUTSIDE RECORDS SUMMARY | 2023-10-04 08:32 | External Medical Summary | Summary of Care ---
Author Name Unknown Organization [facility] Address [address] [place] [address] Phone [phone] Care Team Providers Care Labor Relations Consultant Name Role Phone Ramonita Pisano MD Primary Care Provider [phone] Reason for Visit * Reason Onset Date Comments Sore Throat Cough Chills Respiratory Infection 09/04/2023 Encounter Details Date Type Department Care Team (Latest Contact Info) Description 09/04/2023 11:40 AM EST Convenient Care Visit [facility] [address] [place] [address] Marianna Whiteside PA-C [address] [place] [address] Acute cough*; History of pneumonia; Type 1 diabetes mellitus with hemoglobin A1c goal of less than 7.0% ([facility]); Mild persistent asthma with acute exacerbation Allergies Active Allergy Reactions Criticality Noted Date Comments Gluten Diarrhea Medium 07/26/2010 History of Celiacs disease documented as of this encounter (statuses as of 09/04/2023) Medications Medication Sig Dispensed Refills Start Date [...] Active BUPROPION HCL (XL) 300 MG PO [id number]:Bi polar disorder (HCC) 1 TABLET DAILY 0 12/11/2011 Active TEMAZEPAM 30 MG PO CAPS at bedtime daily as needed 0 Active fluticasone (FLONASE) 50 MCG/ACT nasal spray INHALE 2 SPRAYS INTO EACH NOSTRIL ONE TIME DAILY 1 Bottle 5 06/20/2015 Active fexofenadine (KHAI) 180 MG TabletIndications: Atopic dermatitis Take 1 Tablet by mouth daily as needed for Allergies. 30 Tab 11 09/26/2015 Active Insulin Infusion Pump Supplies MISCIndications:DM type 1 nursing care encounter (HCC) As directed 3 Box Dosing Unit 3 01/03/2017 Active LORAzepam (ATIVAN) 0.5 MG Tablet Take 1 Tablet by mouth at bedtime as needed for Anxiety. 30 Tab 0 02/06/2017 Active Clindamycin Phos-Benzoyl Perox 1-5 % gelIndications:Acn e, unspecified acne type Apply topically to affected area 2 times a day. To affected area (after washing and drying area) on acne 60 g 11 07/14/2018 Active metronidazole (METROGEL) 0.75 % gel Apply topically to affected area 2 times a day. On cheek 45 g 11 07/14/2018 Active tacrolimus (PROTOPIC) 0.1 % ointmentIndication s:Lichen planus Apply to purple patch in the genital area twice daily 30 g 0 03/13/2019 Active hydrocortisone 2.5 % creamIndications:S eborrheic dermatitis Apply to dry patches on the face 2-3 x's per week as needed for flares. 20 g 1 03/13/2019 Active lamoTRIgine (LAMICTAL) 200 MG Tablet Take 1 Tablet by mouth in the morning. 0 09/12/2019 Active Fluticasone-Salmet karen 250-50 MCG/DOSE Inhalation Aerosol Powder Breath Activated (Advair Diskus) INHALE 1 PUFF BY MOUTH TWO TIMES DAILY 1 Each 11 09/29/2021 Active Glucagon Emergency 1 MG Injection KitIndications:Hyp oglycemia As directed 2 Kit 5 09/29/2021 Active Levothyroxine Sodium 100 MCG Oral Tablet (Levoxyl)Indicatio ns:Hypothyroidism TAKE 1 TABLET BY MOUTH EVERY DAY AT LEAST 30 MINUTES BEFORE BREAKFAST OR OTHER MEDICATIONS 90 Tablet 3 12/30/2022 Active Albuterol Sulfate HFA 108 (90 Base) MCG/ACT Inhalation Aerosol Solution Use two puffs every four hours as needed for wheezing 48 g 3 04/04/2023 Active OneTouch Ultra In Vitro Strip (Glucose Blood)Indications: Type 1 diabetes mellitus with hemoglobin A1c goal of less than 7.0% ([facility]) USE TO TEST BLOOD SUGAR UP TO 7 TIMES DAILY. 700 Strip 1 04/04/2023 Active Fluticasone-Salmet karen 250-50 MCG/ACT Inhalation Aerosol Powder Breath Activated (Advair Diskus) Inhale 1 Puff by mouth in the morning and 1 Puff before bedtime. 3 Each 3 04/04/2023 Active Benzonatate 100 MG Oral Capsule (Tessalon Perles)Indications :Viral URI with cough TAKE 1 CAPSULE BY MOUTH THREE TIMES DAILY NEEDED FOR COUGH 90 Capsule 0 04/20/2023 Active Omeprazole 20 MG Oral Capsule Delayed Release (PriLOSEC)Indicati ons:Gastroesophage al reflux disease without esophagitis TAKE 1 CAPSULE BY MOUTH EVERY DAY 1 HOUR BEFORE THE FIRST MEAL OF THE DAY 90 Capsule 1 05/05/2023 Active Atorvastatin Calcium 20 MG Oral Tablet (Lipitor)Indicatio ns:Hyperlipidemia with target LDL less than 100 TAKE 1 TABLET BY MOUTH EVERY DAY 90 Tablet 1 07/22/2023 Active Sildenafil Citrate 50 MG Oral TabletIndications: Erectile dysfunction, unspecified erectile dysfunction type TAKE 1 TABLET BY MOUTH ONCE FOR ONE DOSE 1-4 HOURS BEFORE INTERCOURSE. NO MORE THAN 1 DOSE IN 24 HOURS 10 Tablet 08/01/2023 Active Selenium Sulfide 2.5 % External LotionIndications: Seborrheic dermatitis Apply topically to affected area daily. In back for 2 weeks or until gone 120 mL 08/06/2023 Active Ketoconazole 2 % External Shampoo (Nizoral)Indicatio ns:Seborrheic dermatitis APPLY TOPICALLY TO AFFECTED AREA(S) OF SCALP 2 TO 3 TIMES PER WEEK 120 mL 08/06/2023 Active Franklin-3 Fish Oil 1000 MG Oral Capsule (Franklin-3)Indicatio ns:Tinnitus aurium, bilateral Take 1 Capsule by mouth in the morning and 1 Capsule before bedtime. 60 Capsule 08/06/2023 Active Insulin Aspart 100 UNIT/ML Injection Solution (NovoLOG)Indicatio ns:Type 1 diabetes mellitus with hemoglobin A1c goal of less than 7.0% ([facility]) INJECT 70 UNITS EVERY DAY VIA INSULIN PUMP 60 mL 1 08/30/2023 Active Hospital, Clinic, or Other Facility Administered Medication Ordered Dose Route Frequency Start Date End Date Status Albuterol Sulfate (Proventil) (2.5 MG/3ML) 0.083% inhalation solution 2.5 mgIndications:Mild persistent asthma without complication 2.5 mg NEBULIZER ONCE PRN 08/06/2023 08/05/2024 Acti ve documented as of this encounter (statuses as of 09/04/2023) Active Problems Problem Noted Date Diagnosed Date [...] as of this encounter (statuses as of 09/04/2023) Resolved Problems Problem Noted Date Diagnosed Date [...] as of this encounter (statuses as of 09/04/2023) Immunizations Name Administration Dates Next Due COVID-19 mRNA, LNP-s, No Pre serve, 2-Dose Series (Moderna) 09/03/2020,07/31/2020 Covid-19, Mrna, Lnp-s, Pf, B ivalent, 30 Mcg, IM, 12 yrs and above (Pfizer) 06/22/2022 Hepatitis B, 20+ yrs 01/15/2017,08/14/19 17,07/10/2016,09/25 Pneumococcal Conjugate Vacci ne, 20-valent ([id number]) 05/10/2022 Pneumococcal Polysaccharide PPV23 (Pneumovax) 07/14/2018,12/06/2006 Seasonal Influenza, PF, 6 M & above, IM , (FluLaval or Fluzone) 04/04/2023,05/10/2022,09/29/2021,03/23,09/29/2019 TD, Preservative Free 07/10/2016 TDAP (age 11 and older)(Adacel) 04/16/2004 documented as of this encounter Social History Tobacco Use Types Packs/Day Years Used Date Smoking Tobacco: Never Smokeless Tobacco: Never Tobacco Cessation:Counseling Given: No Alcohol Use Standard Drinks/Week Comments Yes 0 [...] on file documented as of this encounter Last Filed Vital Signs Vital Sign Reading Time Taken Comments Blood Pressure 118/74 09/04/2023 1:13 PM EST Pulse 65 09/04/2023 1:13 PM EST Temperature 36.1 C (96.9 F) 09/04/2023 1:13 PM ES T Respiratory Rate 18 09/04/2023 1:13 PM EST Oxygen Saturation 97% 09/04/2023 1:13 PM EST Inhaled Oxygen Concentration - - Weight 79.8 kg (176 lb) 09/04/2023 1:13 PM EST Height 170.2 cm (5' 7") 09/04/2023 1:13 PM EST Body Mass Index 27.57 09/04/2023 1:13 PM EST documented in this encounter Progress Notes * Marianna Whiteside PA-C - 09/04/2023 12:46 PM EST Nursing Notes: Katey Matthews, PBT 09/04/23 1315 Signed Tavon Vasquez is a 48 year old male who presents to walk-in clinic today complaining of Chief Complaint Patient presents with Sore Throat Cough Chills Main Symptoms:Has non productive cough, ST, sinus drainage, and chills Cause: Unknown How long: Onset yesterday Tried: Nyquil, last dose last night, helped sleep Ibuprofen, last dose this AM, no relief Pt accompanied by: Self Tavon Vasquez is a 48 year old male who presents with upper and lower respiratory symptoms for 1 day(s) Patient was accompanied by Self. HPI Severity of Symptoms: Moderate Modifying Factors (what was done since onset of symptoms): nyquil, ibuprofen Timing (how often does it occur): constant, worsening Quality (feels like): chills, body aches, BURGOS, cough, nasal congestion Other associated Signs and Symptoms: sore throat, sinus pressure, red irritated eyes Here with c/o cough, chills, feels feverish, sore throat, headache, runny nose, congestion, sinus pressure, body aches, No n/v/d. 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 No known contact with covid. Thinks he has been in contact with flu. Has h/o pneumonia multiple times. Has h/o asthma - has albuterol inh, did not use yet today. ROS Constitutional Symptoms: no fever, no weight loss, no weakness, no recent illness, and + fatigue Upper Respiratory Symptoms: + cough-dry, - chest tightness, - facial or sinus pain, and - upper tooth pain Pulmonary: No wheezing, No recent change in breathing, and dry cough, + mild SOB Cardiovascular: No chest pain, No dyspnea on exertion, No orthopnea, No paroxysmal nocturnal dyspnea, No edema, No palpitations, and No syncope Gastrointestional: No abdominal pain, No change in bowel habits, No significant heartburn, No significant change in appetite, No nausea, vomiting, diarrhea, or constipation, No hematemesis, No blood in stools or black tarry stools, No abdominal bloating or early satiety, and No dysphagia Skin/Integumentary: No edema, No rash, and No itching Symptom duration of 1 days Recent illnesses in household: No HISTORY Past Medical History: Diagnosis Date Asthma, mild persistent 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 Hypothyroidism INFORMATION 2000 suspected for Lupus based on labs and kidney and bone marrow Bx Lyme disease 07/08/2004 Other specified polyglandular dysfunction Past Surgical History: Procedure Laterality Date COLONOSCOPY, DIAGNOSTIC (RECTUM) 06/10/2012 COLONOSCOPY FLEXIBLE PROXIMAL DIAGNOSTIC performed by Airam Molina DO at [facility]: normal EGD, FLEXIBLE, DIAGNOSTIC 06/10/2012 UPPER GI ENDOSCOPY DIAGNOSTIC performed by Airam Molina DO at [facility]: normal FOOT/TOE SURGERY NEC 1995 happened while running REMOVAL OF KIDNEY STONE, OVER 2CM 2005 Social History Tobacco Use Smoking status: Never Smokeless tobacco: Never Substance Use Topics Alcohol use: Yes Comment: socially Vaping/E-Cigarette Use Vaping/E-Cigarette Substances Vaping/E-Cigarette Devices Current Outpatient Medications Medication Sig Dispense Refill SEROQUEL 100 MG PO TABS at bedtime 0 0 SEROQUEL 50 MG PO TABS at bedtime 0 11 AMPHETAMINE SALT COMBO 10 MG PO TABS 1-2 tabs twice daily 0 0 ONETOUCH ULTRASOFT LANCETS MISC use up to 10 times a day one month supply 11 BUPROPION HCL (XL) 300 MG PO TB24 1 TABLET DAILY TEMAZEPAM 30 MG PO CAPS at bedtime daily as needed fluticasone (FLONASE) 50 MCG/ACT nasal spray INHALE 2 SPRAYS INTO EACH NOSTRIL ONE TIME DAILY 1 Bottle 5 fexofenadine (KHAI) 180 MG Tablet Take 1 Tablet by mouth daily as needed for Allergies. 30 Tab 11 Insulin Infusion Pump Supplies MISC As directed 3 Box Dosing Unit 3 LORAzepam (ATIVAN) 0.5 MG Tablet Take 1 Tablet by mouth at bedtime as needed for Anxiety. 30 Tab 0 Clindamycin Phos-Benzoyl Perox 1-5 % gel Apply topically to affected area 2 times a day. To affected area (after washing and drying area) on acne 60 g 11 metronidazole (METROGEL) 0.75 % gel Apply topically to affected area 2 times a day. On cheek 45 g 11 tacrolimus (PROTOPIC) 0.1 % ointment Apply to purple patch in the genital area twice daily 30 g 0 hydrocortisone 2.5 % cream Apply to dry patches on the face 2-3 x's per week as needed for flares. 20 g 1 lamoTRIgine (LAMICTAL) 200 MG Tablet Take 1 Tablet by mouth in the morning. Fluticasone-Salmeterol 250-50 MCG/DOSE Inhalation Aerosol Powder Breath Activated (Advair Diskus) INHALE 1 PUFF BY MOUTH TWO TIMES DAILY 1 Each 11 Glucagon Emergency 1 MG Injection Kit As directed 2 Kit 5 Levothyroxine Sodium 100 MCG Oral Tablet (Levoxyl) TAKE 1 TABLET BY MOUTH EVERY DAY AT LEAST 30 MINUTES BEFORE BREAKFAST OR OTHER MEDICATIONS 90 Tablet 3 Albuterol Sulfate HFA 108 (90 Base) MCG/ACT Inhalation Aerosol Solution Use two puffs every four hours as needed for wheezing 48 g 3 OneTouch Ultra In Vitro Strip (Glucose Blood) USE TO TEST BLOOD SUGAR UP TO 7 TIMES DAILY. 700 Strip 1 Fluticasone-Salmeterol 250-50 MCG/ACT Inhalation Aerosol Powder Breath Activated (Advair Diskus) Inhale 1 Puff by mouth in the morning and 1 Puff before bedtime. 3 Each 3 Benzonatate 100 MG Oral Capsule (Tessalon Perles) TAKE 1 CAPSULE BY MOUTH THREE TIMES DAILY NEEDED FOR COUGH 90 Capsule 0 Omeprazole 20 MG Oral Capsule Delayed Release (PriLOSEC) TAKE 1 CAPSULE BY MOUTH EVERY DAY 1 HOUR BEFORE THE FIRST MEAL OF THE DAY 90 Capsule 1 Atorvastatin Calcium 20 MG Oral Tablet (Lipitor) TAKE 1 TABLET BY MOUTH EVERY DAY 90 Tablet 1 Sildenafil Citrate 50 MG Oral Tablet TAKE 1 TABLET BY MOUTH ONCE FOR ONE DOSE 1- 4 HOURS BEFORE INTERCOURSE. NO MORE THAN 1 DOSE IN 24 HOURS 10 Tablet 11 Selenium Sulfide 2.5 % External Lotion Apply topically to affected area daily. In back for 2 weeks or until gone 120 mL 11 Ketoconazole 2 % External Shampoo (Nizoral) APPLY TOPICALLY TO AFFECTED AREA(S) OF SCALP 2 TO 3 TIMES PER WEEK 120 mL 5 Franklin-3 Fish Oil 1000 MG Oral Capsule (Franklin-3) Take 1 Capsule by mouth in the morning and 1 Capsule before bedtime. 60 Capsule 5 Insulin Aspart 100 UNIT/ML Injection Solution (NovoLOG) INJECT 70 UNITS EVERY DAY VIA INSULIN PUMP 60 mL 1 Current Facility-Administered Medications Medication Dose Route Frequency Provider Last Rate Last Admin Albuterol Sulfate (Proventil) (2.5 MG/3ML) 0.083% inhalation solution 2.5 mg 2.5 mg Nebulizer Once PRN Ramonita Pisano MD Review of patient's allergies indicates: Allergen Reactions Gluten Diarrhea History of Celiacs disease Family History Problem Relation Age of Onset Heart attack Mother 68 Genitourinary Disorder Father kidney stones Diabetes Father Dementia Father No Past Hx Brother Breast Cancer Grandmother (Maternal) 68 OBJECTIVE BP 118/74 | Pulse 65 | Temp 36.1 C (96.9 F) (Tympanic) | Resp 18 | Ht 1.702 m (5' 7") | Wt 79.8kg (176 lb) | SpO2 97% | BMI 27.57 kg/m | BSA 1.94 m Wt Readings from Last 1 Encounters: 09/04/23 79.8 kg (176 lb) General Appearance: awake, alert, no apparent distress HEENT: perrl and eomi tms - clear, normal light reflex, no erythema oral pharynx clear, mucus membranes moist + conjunctival injection Neck: normal, supple, no adenopathy Respiratory: clear to auscultation, no rhonchi, no crackles, + wheezes throughout all lung aguirre, mild Heart: regular rate, regular rhythm, no murmurs , no rubs, and no gallops Skin: skin color, texture, turgor are normal, no rashes or significant lesions There are no Patient Instructions on file for this visit. ASSESSMENT AND PLAN Acute cough (Primary) - XR CHEST 2 VIEWS - INFLUENZA A/B RSV SARS-COV2,PCR; Future; Expected date: 09/04/2023 - INFLUENZA A/B RSV SARS-COV2,PCR Check cxr and resp panel to r/o pneumonia or above cause of viral respiratory infection. Advised to use albuterol inh 2 puffs every 4 hours. OTC supportive measures reviewed - rest, hydration. F/u here or with PCP if sx worsen or persist. History of pneumonia Type 1 diabetes mellitus with hemoglobin A1c goal of less than 7.0% ([facility]) Mild persistent asthma with acute exacerbation Follow Up: Return for Patient to follow up with Primary Care Provider as directed. | For: Patient to follow up with Primary Care Provider as directed Patient goals for plan of care were discussed Marianna Whiteside PA-C [facility] [address] [place] [id number] documented in this encounter Nursing Notes * Katey Matthews PBT - 09/04/2023 1:14 PM EST Tavon Vasquez is a 48 year old male who presents to walk-in clinic today complaining of Chief Complaint Patient presents with Sore Throat Cough Chills Main Symptoms:Has non productive cough, ST, sinus drainage, and chills Cause: Unknown How long: Onset yesterday Tried: Nyquil, last dose last night, helped sleep Ibuprofen, last dose this AM, no relief Pt accompanied by: Self documented in this encounter Plan of Treatment Upcoming Encounters Date Type Department Care Team (Late st Contact Info) Description 09/16/2023 1:30 PM EDT Office Visit Dermatology, [facility] [address] [place] [address] Anaid Nicole PA-C [address] [place] [address] 12/10/2023 9:30 AM EDT Office Visit Otolaryngology [facility] [address] [place] [address] Juliocesar Perry DO [address] [place] [address] Marisa Molina Au.D. [address] [place] [address] 01/16/2024 1:00 PM EDT Office Visit General Internal Medicine [facility] [address] [facility] [place] [address] Ramonita Pisano MD [address] [facility] [place] [id number] Pending Results Name Type Priority Associated Diagnoses Date /Time INFLUENZA A/B RSV SARS-COV2,PCR Lab Routine Acute cough 09/04/2023 2:26 PM EST Scheduled Orders Name Type Priority Associated Diagnoses Orde r Schedule INFLUENZA A/B RSV SARS-COV2,PCR Lab Routine Acute cough Expected: 09/04/2023, Expires: 09/04/2024 Health Maintenance Due Date Last Done Comments [...] Not on filedocumented as of this encounter Procedures Procedure Name Priority Date/Time Associated Diagnosis Comments XR CHEST 2 VIEWS STAT 09/04/2023 2:04 PM EST Acute cough documented in this encounter Results * XR CHEST 2 VIEWS (09/04/2023 2:04 PM EST) Anatomical Region Laterality Modality Chest Computed Radiogr aphy 09/04/2023 2:10 PM EST Impressions 09/04/2023 2:07 PM EST IMPRESSION 1. Suspect central peribronchial thickening, as can be seen with asthma, smoking, and viral bronchitis. Narrative 09/04/2023 2:07 PM EST EXAM XR CHEST 2 VIEWS - 09/04/2023 2:04 pm HISTORY cough, SOB, r/o pneumonia TECHNIQUE Frontal and lateral radiographs of the chest were obtained. COMPARISON Chest radiograph 07/22/2015 FINDINGS FOREIGN BODIES, SUPPORT TUBES, LINES, DEVICES: None. LUNGS, PLEURA: Suspect central peribronchial thickening. No consolidation. No pneumothorax or effusion. CARDIOVASCULAR, MEDIASTINUM: OTHER: None. Procedure Note Tony Jones MD - 09/04/2023 EXAM XR CHEST 2 VIEWS - 09/04/2023 2:04 pm HISTORY cough, SOB, r/o pneumonia TECHNIQUE Frontal and lateral radiographs of the chest were obtained. COMPARISON Chest radiograph 07/22/2015 FINDINGS FOREIGN BODIES, SUPPORT TUBES, LINES, DEVICES: None. LUNGS, PLEURA: Suspect central peribronchial thickening. Noconsolidation. No pneumothorax or effusion. CARDIOVASCULAR, MEDIASTINUM: OTHER: None. IMPRESSION IMPRESSION 1. Suspect central peribronchial thickening, as can be seen with asthma,smoking, and viral bronchitis. Marianna Whiteside PA-C RADIOLOGY (RAD GENER[facility]) documented in this encounter Visit Diagnoses Diagnosis Acute cough- Primary History of pneumonia Personal history of pneumonia (recurrent) Type 1 diabetes mellitus with hemoglobin A1c goal of less than 7.0% (HCC) Mild persistent asthma with acute exacerbation Unspecified asthma, with exacerbation documented in this encounter Care Teams Labor Relations Consultant Relationship Specialty Start Date End Date Ramonita Pisano MD [address] [facility] [place], [place] [address] PCP - General 02/25/09 documented as of this encounter
--- OUTSIDE RECORDS SUMMARY | 2023-10-04 08:32 | External Medical Summary ---
Author Name Unknown Address Unknown Organization [id number]:[facility] [place] - [address] [place] [address] Laboratory Report Ordering Provider Test Date Status SHERRI VALDES 08/06/2023 14:58:54 Final Observation Date Value Abnormality Reference (Units ) Status HbA1C 08/06/2023 14:58:54 8.0 Above high normal 4. 0-5.6 (%) Final The use of HbA1c to monitor glycemic status is based on normal hemoglobin and HbA composition. This test should not be used in patients with abnormal hemoglobin that affects the half life of the red blood cell or the in vivo glycation rates. Glucose, estimated average 08/06/2023 14:58:54 183 Above high normal <126 (mg/dL) León tovar Performing Location [facility] [place] - [address] [place] [address]
--- OUTSIDE RECORDS SUMMARY | 2023-10-04 08:32 | External Medical Summary | Summary of Care ---
Author Name Unknown Organization [facility] Address [address] [place] [address] Phone [phone] Care Team Providers Care Machine Molder Squeeze Name Role Phone Ramonita Pisano MD Primary Care Provider [phone] Reason for Referral * Evaluate & Treat - Unlimited Visits (Within 30 days (routine)) - Pending Review Specialty Diagnoses / Procedures Referred By Carmen peguero Referred To Contact Otolaryngology Diagnoses Tinnitus aurium, bilateral Ramonita Pisano MD [address] [facility] [address] Referral ID Status Reason Start Date Expiration Date Visits Requested Visits Authorized [id number] Pending Review Specialty Services Required 08/06/[phone] Question Answer Referral Priority Within 30 days (routine) Where should this appointment be scheduled? [facility] Reason for Referral Ear Conditions Specific Condition: Tinnitus Comments Both sides left > Rt Reason for Visit * Reason Comments Follow Up 4mo return Ringing in Ears C/o having ringing i n his ears on and off for awhile now. 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 ([facility]); Mild nonproliferative diabetic retinopathy of both eyes without macular edema associated with type 2 diabetes mellitus ([facility]); Hyperlipidemia LDL goal <100; History of kidney stones; Elevated hemoglobin ([facility]); Celiac disease; Bipolar II disorder ([facility]); 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[facility]); Sleep walking and eating; 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 hyperactivity; Mild persistent asthma without complication; Allergic sinusitis; Acquired hypothyroidism Allergies Active Allergy Reactions Criticality Noted Date Comments Gluten Diarrhea Medium 07/26/2010 History of Celiacs disease documented as of this encounter (statuses as of 08/18/2023) Medications Medication Sig Dispensed Refills Start Date [...] Active BUPROPION HCL (XL) 300 MG PO [id number]:B ipolar disorder ([facility]) 1 TABLET DAILY 0 12/11/2011 Active TEMAZEPAM 30 MG PO CAPS at bedtime daily as needed 0 Active fluticasone (FLONASE) 50 MCG/ACT nasal spray INHALE 2 SPRAYS INTO EACH NOSTRIL ONE TIME DAILY 1 Bottle 5 06/20/2015 Active fexofenadine (KHAI) 180 MG TabletIndications :Atopic dermatitis Take 1 Tablet by mouth daily as needed for Allergies. 30 Tab 11 09/26/2015 Active Insulin Infusion Pump Supplies MISCIndications:D M type 1 nursing care encounter ([facility]) As directed 3 Box Dosing Unit 3 01/03/2017 Active LORAzepam (ATIVAN) 0.5 MG Tablet Take 1 Tablet by mouth at bedtime as needed for Anxiety. 30 Tab 0 02/06/2017 Active Clindamycin Phos-Benzoyl Perox 1-5 % gelIndications:Ac ne, unspecified acne type Apply topically to affected area 2 times a day. To affected area (after washing and drying area) on acne 60 g 11 07/14/2018 Active metronidazole (METROGEL) 0.75 % gel Apply topically to affected area 2 times a day. On cheek 45 g 11 07/14/2018 Active tacrolimus (PROTOPIC) 0.1 % ointmentIndicatio ns:Lichen planus Apply to purple patch in the genital area twice daily 30 g 0 03/13/2019 Active hydrocortisone 2.5 % creamIndications: Seborrheic dermatitis Apply to dry patches on the face 2-3 x's per week as needed for flares. 20 g 1 03/13/2019 Active lamoTRIgine (LAMICTAL) 200 MG Tablet Take 1 Tablet by mouth in the morning. 0 09/12/2019 Active Fluticasone-Salme terol 250-50 MCG/DOSE Inhalation Aerosol Powder Breath Activated (Advair Diskus) INHALE 1 PUFF BY MOUTH TWO TIMES DAILY 1 Each 11 09/29/2021 Active Glucagon Emergency 1 MG Injection KitIndications:Hy poglycemia As directed 2 Kit 5 09/29/2021 Active Insulin Aspart 100 UNIT/ML Injection Solution (NovoLOG)Indicati ons:Type 1 diabetes mellitus with hemoglobin A1c goal of less than 7.0% (HCC) INJECT 70 UNITS EVERY DAY PER INSULIN PUMP 60 mL 2 12/19/2022 Active Levothyroxine Sodium 100 MCG Oral Tablet (Levoxyl)Indicati ons:Hypothyroidis m TAKE 1 TABLET BY MOUTH EVERY DAY AT LEAST 30 MINUTES BEFORE BREAKFAST OR OTHER MEDICATIONS 90 Tablet 3 12/30/2022 Active Albuterol Sulfate HFA 108 (90 Base) MCG/ACT Inhalation Aerosol Solution Use two puffs every four hours as needed for wheezing 48 g 3 04/04/2023 Active OneTouch Ultra In Vitro Strip (Glucose Blood)Indications :Type 1 diabetes mellitus with hemoglobin A1c goal of less than 7.0% (HCC) USE TO TEST BLOOD SUGAR UP TO 7 TIMES DAILY. 700 Strip 1 04/04/2023 Active Fluticasone-Salme terol 250-50 MCG/ACT Inhalation Aerosol Powder Breath Activated (Advair Diskus) Inhale 1 Puff by mouth in the morning and 1 Puff before bedtime. 3 Each 3 04/04/2023 Active Benzonatate 100 MG Oral Capsule (Tessalon Perlanisha)Indication s:Viral URI with cough TAKE 1 CAPSULE BY MOUTH THREE TIMES DAILY NEEDED FOR COUGH 90 Capsule 0 04/20/2023 Active Omeprazole 20 MG Oral Capsule Delayed Release (PriLOSEC)Indicat ions:Gastroesopha geal reflux disease without esophagitis TAKE 1 CAPSULE BY MOUTH EVERY DAY 1 HOUR BEFORE THE FIRST MEAL OF THE DAY 90 Capsule 1 05/05/2023 Active Atorvastatin Calcium 20 MG Oral Tablet (Lipitor)Indicati ons:Hyperlipidemi a with target LDL less than 100 TAKE 1 TABLET BY MOUTH EVERY DAY 90 Tablet 1 07/22/2023 Active Sildenafil Citrate 50 MG Oral TabletIndications :Erectile dysfunction, unspecified erectile dysfunction type TAKE 1 TABLET BY MOUTH ONCE FOR ONE DOSE 1-4 HOURS BEFORE INTERCOURSE. NO MORE THAN 1 DOSE IN 24 HOURS 10 Tablet 08/01/2023 Active Selenium Sulfide 2.5 % External LotionIndications :Seborrheic dermatitis Apply topically to affected area daily. In back for 2 weeks or until gone 120 mL 08/06/2023 Active Ketoconazole 2 % External Shampoo (Nizoral)Indicati ons:Seborrheic dermatitis APPLY TOPICALLY TO AFFECTED AREA(S) OF SCALP 2 TO 3 TIMES PER WEEK 120 mL 08/06/2023 Active Kyles Ford-3 Fish Oil 1000 MG Oral Capsule (Kyles Ford-3)Indicati ons:Tinnitus aurium, bilateral Take 1 Capsule by mouth in the morning and 1 Capsule before bedtime. 60 Capsule 08/06/2023 Active Selenium Sulfide 2.5 % External LotionIndications :Seborrheic dermatitis Apply topically to affected area daily. into wet scalp, leave 5 min for 2 weeks then once every 1-4 weeks for maintenance 120 mL 12/22/2020 4 Discontinue d(Refill) Ketoconazole 2 % External Shampoo (Nizoral)Indicati ons:Seborrheic dermatitis APPLY TOPICALLY TO AFFECTED AREA(S) OF SCALP 2 TO 3 TIMES PER WEEK 120 mL 01/27/2021 4 Discontinue d(Refill) Hospital, Clinic, or Other Facility Administered Medication Ordered Dose Route Frequency Start Date End Date Status Albuterol Sulfate (Proventil) (2.5 MG/3ML) 0.083% inhalation solution 2.5 mgIndications:Mild persistent asthma without complication 2.5 mg NEBULIZER ONCE PRN 08/06/2023 08/05/2024 Acti ve albuterol (VENTOLIN HFA/PROVENTIL HFA) inhalerIndications:Mild persistent asthma without complication 3 Puff IN ONCE 08/06/2023 08/07/2023 Ende d documented as of this encounter (statuses as of 08/18/2023) Active Problems Problem Noted Date Diagnosed Date [...] as of this encounter (statuses as of 08/18/2023) Resolved Problems Problem Noted Date Diagnosed Date [...] as of this encounter (statuses as of 08/18/2023) Immunizations Name Administration Dates Next Due COVID-19 mRNA, LNP-s, No Pre serve, 2-Dose Series (Moderna) 09/03/2020,07/31/2020 Covid-19, Mrna, Lnp-s, Pf, B ivalent, 30 Mcg, IM, 12 yrs and above (Pfizer) 06/22/2022 Hepatitis B, 20+ yrs 01/15/2017,08/14/19 17,07/10/2016,09/25 Pneumococcal Conjugate Vacci ne, 20-valent ([id number]) 05/10/2022 Pneumococcal Polysaccharide PPV23 (Pneumovax) 07/14/2018,12/06/2006 Seasonal [...] Sign Reading Time Taken Comments Blood Pressure 122/82 08/06/2023 2:11 PM EST Pulse 100 08/06/2023 2:11 PM EST Temperature 37.2 C (99 F) 08/06/2023 2:11 PM EST Respiratory Rate - - Oxygen Saturation 96% 08/06/2023 2:11 PM EST Inhaled Oxygen Concentration - - Weight 79.1 kg (174 lb 6.4 oz) 08/06/2023 2:11 P M EST Height 170.2 cm (5' 7") 08/06/2023 2:11 PM EST Body Mass Index 27.31 08/06/2023 2:11 PM EST documented in this encounter Patient Instructions * Patient Instructions* Mariajose Higgins LPN - 08/06/2023 2:10 PM EST Diabetes: Keeping Feet Healthy Inspect your feet every day for signs of a problem. Diabetes can damage nerves in your feet and cause neuropathy. This condition makes it hard for you to feel injuries or sore spots. Diabetes can also change blood flow, making it harder for small problems, like a blister, to heal properly. In fact, minor injuries can quickly become serious infections that send you to the hospital. Practice self-care to protect your feet and keep them healthy. Take Special Care Inspect your feet daily for problems such as redness, blisters, cracks, dry skin, or numbness. Use a mirror to see the bottoms of your feet. Or, ask for help. Manage your diabetes. Monitor and control your blood sugar. Take all your medications as prescribed. Avoid walking barefoot, even indoors. Wash your feet with warm water and mild soap. Dry well, especially between toes. Dont treat corns or calluses yourself. Talk to your doctor or supervisor twisting department (a doctor who specializes in foot care) if you need assistance trimming your toenails. Use moisturizing cream or lotion if you have dry skin, but dont use it between toes. Dont use heating pads on your feet. If you have neuropathy, you could get a burn and not feel it. Stop smoking. Smoking restricts blood flow and can make it harder for wounds to heal. Have Regular Checkups Foot problems can develop quickly. So be sure to follow your healthcare teams schedule for regular checkups. During office visits, take off your shoes and socks as soon as you get in the exam room. Ask your healthcare provider to examine your feet for problems. This will make it easier to find and treat small skin irritations before they get worse. Regular checkups can also help keep track of the blood flow and feeling in your feet. If you have neuropathy, you may need to have checkups more often. Wear Proper Footwear Wearing proper footwear is very important. If areas of your feet have been damaged by too much pressure, your healthcare provider may recommend changing your footwear. In some cases, avoiding high heels or tight work boots may be all thats needed. Or, your healthcare provider may recommend special shoes or custom inserts. These help protect your feet and keep existing irritations from getting worse. If you need special footwear, ask your healthcare provider if you qualify for [employer] diabetic shoe program. Make Sure Shoes and Socks Fit Any pair of shoes--new or old--should feel comfortable as soon as you put them on. There shouldnt be any rubbing when you walk. Wear the right shoe for any activity. For instance, a running shoe is designed to keep your feet injury-free while jogging. Buy shoes at the end of the day, when your feet are larger. Make sure they provide support without feeling too loose. Make sure your socks fit, t oo. Wear soft, seamless, well-padded socks for activity. Cotton or microfiber socks are best to help to absorb sweat. To protect your feet, avoid shoes that are open-toed or open-heeled. If you have questions about what kinds of shoes and socks are best, talk to your healthcare team. Get Regular Exercise Regular exercise improves blood flow in your feet. It also increases foot strength and flexibility.Gentle exercises, like walking or riding a stationary bicycle, are best. You can also do special foot exercises. Just be sure to talk with your healthcare provider before starting any exercise program. Also mention if any exercise causes pain, redness, or other signs of foot problems. Note: If you have any kind of break in the skin of your foot or ankle, keep the area clean. Then call your doctor--especially if the area doesnt appear to be healing. [id number] [employer], [address] [place] [address], [place] [address]. All rights reserved. This information is not intended as a substitute for professional medical care. Always follow your healthcare professional's instructions. documented in this encounter Progress Notes * Ramonita Pisano MD - 08/06/2023 2:15 PM EST Images from the original note were not included. History of Present Illness Tavon Vasquez is a 48 year old male that presents for Follow Up (4mo return) and Ringing in Ears (C/o having ringing in his ears on and off for awhile now.) 48 YOF with PMH of DM on insulin pump, hypothyroidism, asthma/allergy, bipolar, SLE, ADD, celiac diseases, presents here for recheck. Acute concern :- - having ringing in his ears on and off for awhile now. Slowly worsening . No hearing loss or lot of infection as a child Interimmedical history : missed sleep med, PFT and other appoint as his MIL suddenly and lot of trip due to that . was in hospital too Watching diet and exercise : not so good Routine labs : due Routine HM : agreeable to get booster . Need to reschedule eye appoint Chronic medical problem: reviewed and stable Physical Exam Vitals: 08/06/23 1411 Temp: 37.2 C (99 F) Pulse: 100 SpO2: 96% BP: 122/82 BMI: 27.31 Physical Exam Constitutional: General: He is not in acute distress. Appearance: Normal appearance. He is normal weight. HENT: Head: Normocephalic. Right Ear: Tympanic membrane, ear canal and external ear normal. There is no impacted cerumen. Left Ear: Tympanic membrane, ear canal and external ear normal. There is no impacted cerumen. Nose: Congestion and rhinorrhea present. Mouth/Throat: Mouth: Mucous membranes are moist. Pharynx: No oropharyngeal exudate or posterior oropharyngeal erythema. Cardiovascular: Rate and Rhythm: Normal rate and regular rhythm. Pulses: Normal pulses. Heart sounds: Normal heart sounds. No murmur heard. Pulmonary: Effort: Pulmonary effort is normal. No respiratory distress. Breath sounds: Normal breath sounds. No wheezing. Abdominal: General: Bowel sounds are normal. There is no distension. Palpations: Abdomen is soft. There is no mass. Musculoskeletal: General: No swelling or tenderness. Normal range of motion. Cervical back: Normal range of motion. No rigidity or tenderness. Right lower leg: No edema. Left lower leg: No edema. Lymphadenopathy: Cervical: No cervical adenopathy. Skin: General: Skin is warm. Findings: Lesion (mild acne with scar on back and few on face) present. Comments: Dandruff and scaling in head and some in hairline Neurological: Mental Status: He is alert. I have reviewed the following results: Assessment and Plan Tinnitus aurium, bilateral Avoid exposure to loud noise and using air pod or head phone - Kyles Ford-3 Fish Oil 1000 MG Oral Capsule (Kyles Ford-3); Take 1 Capsule by mouth in the morning and 1 Capsule before bedtime. Trial - OTOLARYNGOLOGY REFERRAL OP DM type 1 nursing care encounter (HCC) - DIABETES FOOT EXAM - HEMOGLOBIN A1C; Future Seborrheic dermatitis - Selenium Sulfide 2.5 % External Lotion; Apply topically to affected area daily. 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 ([facility]) Await current treatment and plan until lab result comes back Need to control DM and eye appoint Mild nonproliferative diabetic retinopathy of both eyes without macular edema associated with type 2 diabetes mellitus (HCC) Hyperlipidemia LDL goal <100 - COMPREHENSIVE METABOLIC PANEL; Future - LDL CHOLESTEROL (DIRECT MEASURE); Future History of kidney stones Elevated hemoglobin (HCC) Celiac disease Bipolar II disorder (HCC) 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HCC) Sleep walking and eating 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 hyperactivity Mild persistent asthma without complication - SPIROMETRY B/A BRONCHODILATOR; Future Allergic sinusitis Acquired hypothyroidism Wait labs - TSH; Future Wrap-Up Time: I spent a total of 40-54 minutes (exact time 43 mins) on the date of service in preparation, delivery, and documentation of the care provided to Tavon Vasquez excluding any time spent in the performance of separately billed services. * Mariajose Higgins LPN - 08/06/2023 2:10 PM EST DM Foot Exam completed today. Provider aware. Mariajose Higgins LPN Socks and Shoes Removed for Annual Diabetic Foot Screening RIGHT FOOT: No Reddened, Cracking, Or Open Areas Noted. RIGHT Dorsalis Pedis Pulse: Palpable RIGHT Posterior Tibial Pulse: Palpable RIGHT Monofilament:Patient reports feeling monofilament pressure on plantar surface of foot LEFT FOOT: No Reddened, Cracking or Open Areas Noted. LEFT Dorsalis Pedis Pulse: Palpable LEFT Posterior Tibial Pulse: Palpable LEFT Monofilament:Patient reports feeling monofilament pressure on plantar surface of foot Do you need diabetic shoes: No documented in this encounter Nursing Notes * Mariajose Higgins LPN - 08/06/2023 2:10 PM EST Chief Complaint Patient presents with Follow Up 4mo return Ringing in Ears C/o having ringing in his ears on and off for awhile now. documented in this encounter Plan of Treatment Upcoming Encounters Date Type Department Care Team (Late st Contact Info) Description 08/19/2023 1:30 PM EST PulmDiagnostic Pulmonary Function Lab [place] [address] [place] [address] [address] [place], [address] [place] [id number] 09/05/2023 9:20 AM EST Office Visit Sleep Disorders Ctr [facility] [address] [id number] Mi Rankin, DO [address] [place] [id number] 09/06/2023 9:40 AM EST Office Visit Dermatology, Tanya Marroquin Phillips [address] [place] [address] Anaid Nicole PA-C [address] [place] [address] 12/10/2023 9:30 AM EDT Office Visit Otolaryngology [facility] [address] [place] [address] Juliocesar Perry, DO [address] [place] [address] Marisa Molina Au.D. [address] [place] [address] 01/16/2024 1:00 PM EDT Office Visit General Internal Medicine [facility] [address] [facility] [place] [address] Ramonita Pisano MD [address] [facility] [place] [address] Scheduled Orders Name Type Priority Associated Diagnoses Orde r Schedule SPIROMETRY B/A BRONCHODILATOR Procedures Routine Mild persistent asthma without complication Expected: 08/13/2023, Expires: 09/04/2024 Scheduled Referrals Name Type Priority Associated Diagnoses Order Schedule OTOLARYNGOLOGY REFERRAL OP Referral Within 30 days (routine) Tinnitus aurium, bilateral Ordered: 08/06/2023 Health Maintenance Due Date Last Done Comments [...] Not on filedocumented as of this encounter Results * LDL CHOLESTEROL (DIRECT MEASURE) (08/06/2023 2:58 PM EST) LDL Cholesterol (Direct Measure) 90 <=129 mg/dL 08/06/2023 11:56 PM EST [facility] Comment: LDL Cholesterol Reference Ranges (mg/dL): <70 Target level for high risk ASCVD patient <100 Optimal for general population 100-129 Near optimal for general population 130-159 Borderline high 160-189 High >=190 Very high Blood Venous blood specimen / Unknown Venipuncture / Unknown 08/06/2023 2:58 PM EST 08/06/2023 2:59 PM EST Ramonita Pisano MD LAB BLOOD ORDERABLES Performing Organization Address [facility]/ZIP Co de Phone Number LAB[facility]ATORY [facility] [address] [place] [address] * TSH (08/06/2023 2:58 PM EST) Pathologist [facility] TSH 0.79 0.27 - 4.20 uIU/mL 08/07/2023 1:00 AM EST [facility] Blood Venous blood specimen / Unknown Venipuncture / Unknown 08/06/2023 2:58 PM EST 08/06/2023 2:59 PM EST Ramonita Pisano MD LAB BLOOD ORDERABLES Performing Organization Address [facility] de Phone Number LABORATORY [facility] [address] [place] [address] * (ABNORMAL) HEMOGLOBIN A1C (08/06/2023 2:58 PM EST) Hemoglobin A1C 8.0(H) 4.0 - 5.6 % 08/06/2023 11:53 PM EST [facility] Comment:The use of HbA1c to monitor glycemic status is based on normal hemoglobin and HbA composition. This test should not be used in patients with abnormal hemoglobin that affects the half life of the red blood cell or the in vivo glycation rates. Estimated Average Glucose 183(H) <126 mg/dL 08/06/2023 11:53 PM EST [facility] Blood Venous blood specimen / Unknown Venipuncture / Unknown 08/06/2023 2:58 PM EST 08/06/2023 2:59 PM EST Ramonita Pisano MD LAB BLOOD ORDERABLES [facility] [address] [place] [address] * (ABNORMAL) COMPREHENSIVE METABOLIC PANEL (08/06/2023 2:58 PM EST) BUN 24(H) 6 - 20 mg/dL 08/06/2023 4:11 PM EST [facility] 56-02 Creatinine 0.8 0.6 - 1.2 mg/dL 08/06/2023 4:11 PM EST [facility] 56- Estimated Glomerular Filtration Rate >90 >=60 mL/min 08/06/2023 4:11 PM EST [facility] 56- Comment:eGFR is calculated b ased on the CKD-EPI 2020 equation Sodium 140 135 - 146 mmol/L 08/06/2023 4:11 PM EST [facility] 56- Potassium 5.1 3.5 - 5.1 mmol/L 08/06/2023 4:11 PM EST [facility] 56- Chloride 102 98 - 107 mmol/L 08/06/2023 4:11 PM EST [facility] 56- CO2 29 22 - 32 mmol/L 08/06/2023 4:11 PM EST [facility] 56- Anion Gap 9 7 - 15 mmol/L 08/06/2023 4:11 PM [facility] 56- Glucose 121(H) 70 - 120 mg/dL 08/06/2023 4:11 PM EST [facility] 56- Albumin 4.5 3.8 - 5.0 g/dL 08/06/2023 4:11 PM [facility] 56-02 AST 19 10 - 50 U/L 08/06/2023 4:11 PM EST [facility] 56-02 Alkaline Phosphatase 77 35 - 130 U/L 08/06/2023 4:11 PM [facility] 56- Bilirubin, Total 0.2 <=1.2 mg/dL 08/06/2023 4:11 PM EST [facility] 56- Calcium 9.9 8.4 - 10.2 mg/dL 08/06/2023 4:11 PM EST [facility] 56- Protein 7.1 6.0 - 8.3 g/dL 08/06/2023 4:11 PM EST [facility] [place] 56- ALT 28 10 - 50 U/L 08/06/2023 4:11 PM EST [facility] 56- Blood Venous blood specimen / Unknown Venipuncture / Unknown 08/06/2023 2:58 PM EST 08/06/2023 2:59 PM EST Ramonita Pisano MD LAB BLOOD ORDERABLES [facility]- [address] [facility] [address] documented in this encounter Visit Diagnoses Diagnosis Tinnitus aurium, bilateral- Primary DM type 1 nursing care encounter (HCC) Type I (juvenile type) diabetes mellitus without mention of complication, not stated as uncontrolled Seborrheic dermatitis Seborrheic dermatitis, unspecified Type 1 diabetes mellitus with hemoglobin A1c goal of less than 7.0% (HCC) DM type 2 nursing care encounter (HCC) Type II or unspecified type diabetes mellitus without mention of complication, not stated as uncontrolled 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 (HCC) Mild nonproliferative diabetic retinopathy of both eyes without macular edema associated with type 2 diabetes mellitus (HCC) Hyperlipidemia LDL goal <100 Other and unspecified hyperlipidemia History of kidney stones Personal history of urinary calculi Elevated hemoglobin (HCC) Other hemoglobinopathies Celiac disease Bipolar II disorder (HCC) Other bipolar disorders 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
--- OUTSIDE RECORDS SUMMARY | 2023-10-04 08:32 | External Medical Summary ---
Author Name Unknown Address Unknown Organization K01:[facility] - [address] [place] [address] Laboratory Report Ordering Provider Test Date Status SHERRI VALDES 08/06/2023 14:58:54 Final Observation Date Value Abnormality Reference (Units ) Status TSH 08/06/2023 14:58:54 0.79 0.27-4.20 (uIU/mL) Final Performing Location [facility] - [address] [place] [address]
--- OUTSIDE RECORDS SUMMARY | 2023-10-04 08:32 | External Medical Summary ---
Author Name Unknown Address Unknown Organization K09:[facility] [address] [place] [address] Laboratory Report Ordering Provider Test Date Status SHERRI VALDES 08/06/2023 14:58:54 Final Observation Date Value Abnormality Reference (Units ) Status BUN 08/06/2023 14:58:54 24 Above high normal 6-20 (mg/dL) Final Creatinine 08/06/2023 14:58:54 0.8 0.6-1.2 (mg/dL) Final Glomerular filtration rate/1.73 sq M.predicted [Volume Rate/Area] in Serum, Plasma or Blood by Creatinine-based formula (CKD-EPI) 08/06/2023 14:58:54 >90 >=60 (mL/min) Final eGFR is calculated based on the CKD-EPI 2020 equation SODIUM 08/06/2023 14:58:54 140 135-146 (m mol/L) Final Potassium 08/06/2023 14:58:54 5.1 3.5-5.1 (m mol/L) Final Cl 08/06/2023 14:58:54 102 98-107 (mm ol/L) Final CO2 08/06/2023 14:58:54 29 22-32 (mmo l/L) Final Anion gap 08/06/2023 14:58:54 9 7-15 (mmol /L) Final Glucose 08/06/2023 14:58:54 121 Above high normal 70 -120 (mg/dL) Final Albumin 08/06/2023 14:58:54 4.5 3.8-5.0 (g /dL) Final AST (Aspartate aminotransferase) 08/06/2023 14:58:54 19 10-50 (U/L) Fin al Alk Phos 08/06/2023 14:58:54 77 35-130 (U/ L) Final Bilirubin, Total 08/06/2023 14:58:54 0.2 <=1 .2 (mg/dL) Final Calcium 08/06/2023 14:58:54 9.9 8.4-10.2 ( mg/dL) Final Protein 08/06/2023 14:58:54 7.1 6.0-8.3 (g /dL) Final ALT (Alanine aminotransferase) 08/06/2023 14:58:54 28 10-50 (U/L) León tovar Performing Location [facility] [address] [place] [address]
--- OUTSIDE RECORDS SUMMARY | 2023-10-04 08:32 | External Medical Summary | Summary of Care ---
Author Name Unknown Organization [facility] Address [address] [place] [address] Phone [phone] Care Team Providers Care Medical Laboratory Technicians Name Role Phone Ramonita Pisano MD Primary Care Provider [phone] Reason for Visit * Reason Comments Outpatient Testing Encounter Details Date Type Department Care Team (Late st Contact Info) Description 08/06/2023 2:50 PM EST Laboratory Laboratory [facility] [address] [place] [address] [facility] [address] [place] [address] Hyperlipidemia LDL goal <100; DM type 1 nursing care encounter ([facility]); Acquired hypothyroidism Allergies Active Allergy Reactions Criticality Noted Date Comments Gluten Diarrhea Medium 07/26/2010 History of Celiacs disease documented as of this encounter (statuses as of 08/06/2023) Medications Medication Sig Dispensed Refills Start Date [...] Active BUPROPION HCL (XL) 300 MG PO [id number]:Bi polar disorder (HCC) 1 TABLET DAILY 0 [...] hemoglobin A1c goal of less than 7.0% ([facility]) INJECT 70 UNITS EVERY DAY PER INSULIN [...] hemoglobin A1c goal of less than 7.0% ([facility]) USE TO TEST BLOOD SUGAR UP TO 7 TIMES DAILY. 700 Strip 1 04/04/2023 Active Fluticasone-Salmet karen 250-50 MCG/ACT Inhalation Aerosol Powder Breath Activated (Advair Diskus) Inhale 1 Puff by mouth in the morning and 1 Puff before bedtime. 3 Each 3 04/04/2023 Active Benzonatate 100 MG Oral Capsule (Tessalon Perlanisha)Indications :Viral URI with cough TAKE 1 CAPSULE [...] TABLET BY MOUTH EVERY DAY 90 Tablet 07/22/2023 Active Sildenafil Citrate 50 MG Oral [...] TIMES PER WEEK 120 mL 08/06/2023 Active [place]-3 Fish Oil 1000 MG Oral Capsule ([place]-3)Indicatio ns:Tinnitus aurium, bilateral Take 1 Capsule by mouth in the morning and 1 Capsule before bedtime. 60 Capsule 08/06/2023 Active Hospital, Clinic, or Other Facility Administered Medication Ordered Dose Route Frequency Start Date End Date Status Albuterol Sulfate (Proventil) (2.5 MG/3ML) 0.083% inhalation solution 2.5 mgIndications:Mild persistent asthma without complication 2.5 mg NEBULIZER ONCE PRN 08/06/2023 08/05/2024 Acti ve albuterol (VENTOLIN HFA/PROVENTIL HFA) inhalerIndications:Mild persistent asthma without complication 3 Puff IN ONCE 08/06/2023 08/07/2023 Acti ve documented as of this encounter (statuses as of 08/06/2023) Active Problems Problem Noted Date Diagnosed Date [...] as of this encounter (statuses as of 08/06/2023) Resolved Problems Problem Noted Date Diagnosed Date [...] as of this encounter (statuses as of 08/06/2023) Immunizations Name Administration Dates Next Due COVID-19 mRNA, LNP-s, No Pre serve, 2-Dose Series (Moderna) 09/03/2020,07/31/2020 Covid-19, Mrna, Lnp-s, Pf, B ivalent, 30 Mcg, IM, 12 yrs and above (Pfizer) 06/22/2022 Hepatitis B, 20+ yrs 01/15/2017,08/14/19 17,07/10/2016,09/25 Pneumococcal Conjugate Vacci ne, 20-valent ([id number]) 05/10/2022 Pneumococcal Polysaccharide PPV23 (Pneumovax) 07/14/2018,12/06/2006 Seasonal [...] on file documented as of this encounter Plan of Treatment Upcoming Encounters Date Type Department Care Team (Late st Contact Info) Description 08/14/2023 11:00 AM EST Telemedicine Endocrinology, [place] [address] [place] [address] Roberta Nicole PA-C [address] [facility] [place] [address] 08/19/2023 1:30 PM EST PulmDiagnostic Pulmonary Function Lab Don Gonzalez [address] [place] [address] [place], [address] [place] [address] 09/05/2023 9:20 AM EST Office Visit Sleep Disorders Ctr [facility] [address] [place] [phone] Mi Rankin, DO [address] [place] [address] 09/06/2023 9:40 AM EST Office Visit Dermatology, Don Doherty [address] [place] [address] Anaid Nicole PA-C [address] [place] [address] 12/10/2023 9:30 AM EDT Office Visit Otolaryngology [facility] [address] [place] [address] Juliocesar Perry, DO [address] [place] [address] Marisa Molina Au.D. [address] [place] [address] 01/16/2024 1:00 PM EDT Office Visit General Internal Medicine [facility] [place] [address] [place] [address] Ramonita Pisano MD 200 [facility] [place] [address] Pending Results Name Type Priority Associated Diagnoses Date /Time COMPREHENSIVE METABOLIC PANEL Lab Routine Hyperlipidemia LDL goal <100 08/06/2023 2:58 PM EST HEMOGLOBIN A1C Lab Routine DM type 1 nursing care encounter (HCC) 08/06/2023 2:58 PM EST TSH Lab Routine Acquired hypothyroidism 08/06/2023 2:58 PM EST LDL CHOLESTEROL (DIRECT MEASURE) Lab Routine Hyperlipidemia LDL goal <100 08/06/2023 2:58 PM EST Health Maintenance Due Date Last Done Comments *SPIROMETRY ONCE FOR ASTHMA-ADULT 08/26/2016 Cologuard 2019 Fecal Occult Blood Test 2019 Sigmoidoscopy 2019 Diabetic Eye Exam 09/15/2020 09/16/2019, , 09/08/2015, Additional history exists Depression Screening 05/12/2021 05/12/2020 Colonoscopy 06/10/2022 06/10/2012, 06/10/2012 Colorectal Cancer Screening 06/10/2022 COVID-19 Vaccine ( season) 2023 06/22/2022, 05/01/2021, 09/03/2020, Additional history exists HbA1c 10/03/2023 04/04/2023, 12/06, 05/10/2022, Additional history exists Albumin/Creatinine Ratio 12/22/2023 023, 05/10/2022, 05/01/2021, Additional history exists GFR 12/22/2023 12/21/2022, 09/2021, 09/29/2021, Additional history exists TSH 04/04/2024 04/04/2023, 12/06, 05/10/2022, Additional history exists Diabetic Foot Exam 08/06/2024 08/06/2023, 1 07/10/2021, 05/01/2021, Additional history exists DTaP,Tdap,and Td Vaccines (3 - Td or Tdap) 07/10/2026 07/10/2016, 04/16/2004 Lipid Panel 12/22/2027 12/21/2022, 09/2021, 09/29/2021, Additional history exists Hepatitis B Completed 01/15/2017, [...] as of this encounter Visit Diagnoses Diagnosis Hyperlipidemia LDL goal <100 Other and unspecified hyperlipidemia DM type 1 nursing care encounter (HCC) Type I (juvenile type) diabetes mellitus without mention of complication, not stated as uncontrolled Acquired hypothyroidism Unspecified hypothyroidism documented in this encounter Care Teams Medical Laboratory Technicians Relationship Specialty Start Date End Date Ramonita Pisano MD [address] [place] [address] PCP - General 02/25/09 documented as of this encounter
--- OUTSIDE RECORDS SUMMARY | 2023-10-04 08:33 | External Medical Summary | Summary of Care ---
Author Name Unknown Organization [facility] Address [address] [place] [address] Phone [phone] Care Team Providers Care Rubber Tile Floor Layer Name Role Phone Ramonita Pisano MD Primary Care Provider [phone] Reason for Visit * Reason Onset Date Comments Appointment 04/08/2023 colonoscopy Encounter Details Date Type Department Care Team Description 04/08/2023 Telephone General Internal Medicine [facility] [address] [place] [address] Ramonita Pisano MD [address] [place] [address] Appointment (colonoscopy) Allergies Active Allergy Reactions Severity Noted Date Comments Gluten Diarrhea Medium 07/26/2010 History of Celiacs disease documented as of this encounter (statuses as of 04/11/2023) Medications Medication Sig Dispensed Refills Start Date [...] Active BUPROPION HCL (XL) 300 MG PO [id number]:B ipolar disorder (HCC) 1 TABLET DAILY 0 12/11/2011 [...] MISCIndications:D M type 1 nursing care encounter (HCC) As [...] mouth in the morning. 0 09/12/2019 Active Selenium Sulfide 2.5 % External LotionIndications :Seborrheic dermatitis Apply topically to affected area daily. into wet scalp, leave 5 min for 2 weeks then once every 1-4 weeks for maintenance 120 mL 12/22/2020 Active Ketoconazole 2 % External Shampoo (Nizoral)Indicati ons:Seborrheic dermatitis APPLY TOPICALLY TO AFFECTED AREA(S) OF SCALP 2 TO 3 TIMES PER WEEK 120 mL 01/27/2021 Active Fluticasone-Salme terol 250-50 MCG/DOSE Inhalation Aerosol Powder Breath Activated (Advair Diskus) INHALE 1 PUFF BY MOUTH TWO TIMES DAILY 1 Each 09/29/2021 Active Glucagon Emergency 1 MG Injection KitIndications:Hy poglycemia As directed 2 Kit 5 09/29/2021 Active Atorvastatin Calcium 20 MG Oral Tablet (Lipitor)Indicati ons:Hyperlipidemi a with target LDL less than 100 TAKE 1 TABLET BY MOUTH EVERY DAY 90 Tablet 2 10/19/2022 Active Omeprazole 20 MG Oral Capsule Delayed Release (PriLOSEC)Indicat ions:Gastroesopha geal reflux disease without esophagitis TAKE 1 CAPSULE BY MOUTH EVERY DAY, 1 HOUR BEFORE THE FIRST MEAL OF THE DAY 90 Capsule 1 11/02/2022 Active Insulin Aspart 100 UNIT/ML Injection Solution [...] OTHER MEDICATIONS 90 Tablet 3 12/30/2022 Active Benzonatate 100 MG Oral Capsule (Tessalon Perles)Indication s:Viral URI with cough TAKE 1 CAPSULE BY MOUTH THREE TIMES DAILY NEEDED FOR COUGH 90 Capsule 0 03/20/2023 Active Albuterol Sulfate HFA 108 (90 Base) [...] before bedtime. 3 Each 3 04/04/2023 Active Doxycycline Hyclate 100 MG Oral CapsuleIndication s:Acne, unspecified acne type Take 1 Capsule by mouth in the morning and 1 Capsule before bedtime. Do all this for 14 days. 28 Capsule 0 04/04/2023 04/18/2023 Active Hospital, Clinic, or Other Facility Administered Medication Ordered Dose Route Frequency Start Date End Date Status Albuterol Sulfate (Proventil) (2.5 MG/3ML) 0.083% inhalation solution 2.5 mgIndications:Mild persistent asthma without complication 2.5 mg NEBULIZER PRN 05/10/2022 05/10/2023 Acti ve albuterol (VENTOLIN HFA/PROVENTIL HFA) inhalerIndications:Mild persistent asthma without complication 3 Puff IN PRN 05/10/2022 05/10/2023 Acti ve documented as of this encounter (statuses as of 04/11/2023) Active Problems Problem Noted Date Sleep walking and eating 04/07/2023 Elevated [...] goal <100 08/07/2011 Type 1 diabetes mellitus with hemoglobin A1c goal of less than 7.0% 05/05/2009 Overview: Per Diabetes Taxonomy. diagnosed at 17 ICD-10 update of inactive term Acquired hypothyroidism Polyglandular autoimmune syndrome 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 hyper activity Celiac disease documented as of this encounter (statuses as of 04/11/2023) Resolved Problems Problem Noted Date Resolved Date Food insecurity 12/18/2021 03/22/2022 Overview: Per [facility] Protocol Lyme disease 09/26/2010 08/07/2011 Type 1 diabetes mellitus wit h hemoglobin A1c goal of less than 7.0% 05/05/2009 Overview: Per Diabetes Taxonomy. diagnosed at 17 ICD-10 update of inactive term Bipolar disorder, current episode mixed, moderat e 01/28/2021 Overview: Dr Schmitz documented as of this encounter (statuses as of 04/11/2023) Immunizations Name Administration Dates Next Due COVID-19 mRNA, LNP-s, No Pre serve, 2-Dose Series (Moderna) 09/03/2020,07/31/2020 Covid-19, Mrna, Lnp-s, Pf, B ivalent, 30 Mcg, IM, 12 yrs and above (Pfizer) 06/22/2022 Hepatitis B, 20+ yrs 01/15/2017,08/14/19 17,07/10/2016,09/25 Pneumococcal Conjugate Vacci ne, 20-valent ([id number]) 05/10/2022 Pneumococcal Polysaccharide PPV23 (Pneumovax) 07/14/2018,12/06/2006 SEASONAL INFLUENZA, PF, 6 M & Above, IM , (FLULAVAL or FLUZONE) 04/04/2023,05/10/2022,09/29/2021,03/23,09/29/2019 TD, Preservative Free 07/10/2016 TDAP (age 11 and older)(Adacel) 04/16/2004 documented as of this encounter Social History Tobacco Use Types Packs/Day Years Used Date Smoking Tobacco: Never Smokeless Tobacco: Never Alcohol Use Standard Drinks/Week Comments Yes 0 (1 standard drink = 0.6 oz pur e alcohol) socially Food Insecurity Answer Date Recorded Within the past 12 months, y ou worried that your food would run out before you got money to buy more. Never true 01/27/2021 Within the past 12 months, t he food you bought just didn't last and you didn't have money to get more. Never true 01/27/2021 Sex Assigned at Date Recorded Male 09/16/2019 3:17 PM E DT Job Start Date Occupation Industry Not on file Not on file Not on file documented as of this encounter Miscellaneous Notes * Telephone Encounter - STANISLAV Lewis - 04/11/2023 8:38 AM EDT Letter sent, 3rd att 04/11 JAT * Telephone Encounter - STANISLAV Lewis - 04/10/2023 11:48 AM EDT MyG message sent, 2nd att 04/10 JAT * Telephone Encounter - STANISLAV Lewis - 04/08/2023 2:45 PM EDT LMOM re: colo ref 04/08 JAT * Telephone Encounter - STANISLAV Cobos - 04/08/2023 9:28 AM EDT Order placed 04/04, please advise on scheduling. * Telephone Encounter - STANISLAV Cobos - 04/08/2023 9:28 AM EDT OUTPATIENT REFERRAL REQUEST COLONOSCOPY, GI REFERRAL OP Name: Tavon Vasquez Birthdate: 1975 Patient's Address: [address] [place] [phone] Home: Work: Patient Preference: Referral ID: [id number] Referred To: COLONOSCOPY, GI REFERRAL OP Over Short And Damage Clerk: Provider Specialty: Gastroenterology Priority: Within 30 days (routine) Visit Coverage: [facility] ANCELMO [facility] Primary Payor: [facility] Appointment Info: Date: Time: Referral Type: Ancillary Services [] Expiration Date: Number of Visits Requested: 999 Associated Diagnosis: Special screening for malignant neoplasms, colon (Z12.11) Problem/Desired Service from Over Short And Damage Clerk: ALERT: Do not order for pediatric patients (18 years or younger). Cancel off screen and order PEDS GASTROENTEROLOGY CONSULT (Type: 1 visit only-Evaluate and Treat) The following Pt. Instructions are available: - Gastro Colonoscopy Prep Instructions [90688] - Gastro Colonoscopy Prep Instructions ([place] Version) [19803] Go to the Pt. Instructions section within the Visit Navigator to access. Colonoscopy ASGE Guidelines: Average risk screening (begin at age 50, 10 year intervals) ADDITIONAL INFORMATION 1. Is the patient on Coumadin? No 2. Is the patient on Pradaxa? No Order Specific Questions: Referral Priority: Within 30 days (routine) documented in this encounter Plan of Treatment Upcoming Encounters Date Type Specialty Care Team Description 06/05/2023 Telemedicine Endocrinology Roberta Nicole PA-C [address] [facility] [place] [address] 06/06/2023 Office Visit Sleep Disorders Mi Rankin, DO [address] [place] [address] 06/26/2023 Office Visit Dermatology Jenna Marie PA-C [address] [place] [address] 08/06/2023 Office Visit Internal Medicine Ramonita Pisano MD [address] [place] [address] Health Maintenance Due Date Last Done Comments *SPIROMETRY ONCE FOR ASTHMA-ADULT 08/26/2016 Cologuard 2019 Fecal Occult Blood Test 2019 Sigmoidoscopy 2019 DIABETES-EYE EXAM 09/15/2020 09/16/2019, , 09/08/2015, Additional history exists Depression Screening 05/12/2021 05/12/2020 Colonoscopy 06/10/2022 06/10/2012, 06/10/2012 Colorectal Cancer Screening 06/10/2022 COVID-19 Vaccine ( season) 2023 06/22/2022, 05/01/2021, 09/03/2020, Additional history exists Diabetic Foot Exam 05/10/2023 05/10/2022, 1 , 05/12/2020, Additional history exists HbA1c 10/03/2023 04/04/2023, 12/06, 05/10/2022, Additional history exists Albumin/Creatinine Ratio 12/22/202312/21/2 023, 05/10/2022, 05/01/2021, Additional history exists GFR 12/22/2023 12/21/2022, 09/2021, 09/29/2021, Additional history exists TSH 04/04/2024 04/04/2023, 12/06, 05/10/2022, Additional history exists DTaP,Tdap,and Td Vaccines (3 [...] Not on filedocumented as of this encounter Care Teams Rubber Tile Floor Layer Relationship Specialty Start Date End Date Ramonita Pisano MD [address] [place] [address], [place] [address] PCP - General 02/25/09 documented as of this encounter
--- OUTSIDE RECORDS SUMMARY | 2023-10-04 08:33 | External Medical Summary | Summary of Care ---
Author Name Unknown Organization [facility] Address [address] [place] [address] Phone [phone] Care Team Providers Care Alterations Supervisor Name Role Phone Ramonita Pisano MD Primary Care Provider [phone] Reason for Visit * Reason Onset Date Comments Appointment 04/08/2023 colonoscopy Encounter Details Date Type Department Care Team Description 04/08/2023 Telephone General Internal Medicine [facility] [address] [place] [address] Ramonita Pisano MD [address] [place] [address] Appointment (colonoscopy) Allergies Active Allergy Reactions Severity Noted Date Comments Gluten Diarrhea Medium 07/26/2010 History of Celiacs disease documented as of this encounter (statuses as of 04/10/2023) Medications Medication Sig Dispensed Refills Start Date [...] Active BUPROPION HCL (XL) 300 MG PO [id number]:B ipolar disorder (HCC) 1 TABLET DAILY 0 [...] hemoglobin A1c goal of less than 7.0% ([facility]) INJECT 70 UNITS EVERY DAY [...] hemoglobin A1c goal of less than 7.0% ([facility]) USE TO TEST BLOOD SUGAR [...] as of this encounter (statuses as of 04/10/2023) Active Problems Problem Noted Date Sleep walking [...] as of this encounter (statuses as of 04/10/2023) Resolved Problems Problem Noted Date Resolved Date [...] as of this encounter (statuses as of 04/10/2023) Immunizations Name Administration Dates Next Due COVID-19 mRNA, LNP-s, No Pre serve, 2-Dose Series (Moderna) 09/03/2020,07/31/2020 Covid-19, Mrna, Lnp-s, Pf, B ivalent, 30 Mcg, IM, 12 yrs and above (Pfizer) 06/22/2022 Hepatitis B, 20+ yrs 01/15/2017,08/14/19 17,07/10/2016,09/25 Pneumococcal Conjugate Vacci ne, 20-valent ([id number]) 05/10/2022 Pneumococcal Polysaccharide PPV23 (Pneumovax) 07/14/2018,12/06/2006 SEASONAL [...] Name: Tavon Vasquez Birthdate: 1975 Patient's Address: [address] [place] [phone] Home: Work: Patient Preference: Referral ID: [id number] Referred To: COLONOSCOPY, GI REFERRAL OP Senior Front End Web Developer: Provider Specialty: Gastroenterology Priority: Within 30 days (routine) Visit Coverage: [facility] Primary Payor: MANLIUS [employer] [facility] Appointment Info: Date: Time: Referral Type: Ancillary Services [] Expiration Date: Number of Visits Requested: 999 Associated Diagnosis: Special screening for malignant neoplasms, colon (Z12.11) Problem/Desired Service from Senior Front End Web Developer: ALERT: Do not order for pediatric patients (18 years or younger). Cancel off screen and order PEDS GASTROENTEROLOGY CONSULT (Type: 1 visit only-Evaluate and Treat) The following Pt. Instructions are available: - Gastro Colonoscopy Prep Instructions [[id number]] - Gastro Colonoscopy Prep Instructions ([place]izen [place] Version) [[id number]] Go to the Pt. Instructions section within [...] Telemedicine Endocrinology Roberta Nicole PA-C [address] [place] [address] 06/06/2023 Office Visit Sleep Disorders Mi Rankin, DO [address] [place] [address] 06/26/2023 Office Visit Dermatology Jenna Marie PA-C [address] [place] [address] 08/06/2023 Office Visit Internal Medicine Ramonita Pisano MD [address] [place] [address] Health Maintenance Due Date Last Done Comments [...] 12/06, 05/10/2022, Additional history exists Albumin/Creatinine Ratio 12/22/20232 023, 05/10/2022, 05/01/2021, Additional history exists GFR 12/22/2023 12/21/2022, 1109/2021, 09/29/2021, Additional history exists TSH 04/04/2024 04/04/2023, [...] filedocumented as of this encounter Care Teams Alterations Supervisor Relationship Specialty Start Date End Date Ramonita Pisano MD [address] [place] [address], [place] [address] PCP - General 02/25/09 documented as of this encounter
--- OUTSIDE RECORDS SUMMARY | 2023-10-04 08:33 | External Medical Summary | Summary of Care ---
Author Name Unknown Organization [facility] Address [address] [place] [address] Phone [phone] Care Team Providers Care Manager Generation Name Role Phone Ramonita Pisano MD Primary Care Provider [phone] Reason for Visit * Reason Onset Date Comments Health Maintenance 05/28/2023 Encounter Details Date Type Department Care Team (Late st Contact Info) Description 05/28/2023 Telephone General Internal Medicine [facility] 200 [facility] [place] [id number] Ramonita Pisano MD 200 [place] [address] Health Maintenance Allergies Active Allergy Reactions Criticality Noted Date Comments Gluten Diarrhea Medium 07/26/2010 History of Celiacs disease documented as of this encounter (statuses as of 05/28/2023) Medications Medication Sig Dispensed Refills Start Date [...] Active BUPROPION HCL (XL) 300 MG PO [id number]:Bi polar disorder (HCC) 1 TABLET DAILY 0 [...] 09/12/2019 Active Selenium Sulfide 2.5 % External LotionIndications: Seborrheic dermatitis Apply topically to affected area daily. into wet scalp, leave 5 min for 2 weeks then once every 1-4 weeks for maintenance 120 mL 12/22/2020 Active Ketoconazole 2 % External Shampoo (Nizoral)Indicatio ns:Seborrheic dermatitis APPLY TOPICALLY TO AFFECTED AREA(S) OF SCALP 2 TO 3 TIMES PER WEEK 120 mL 01/27/2021 Active Fluticasone-Salmet karen 250-50 MCG/DOSE Inhalation Aerosol [...] EVERY DAY 90 Tablet 2 10/19/2022 Active Insulin Aspart 100 UNIT/ML Injection Solution [...] THE DAY 90 Capsule 1 05/05/2023 Active documented as of this encounter (statuses as of 05/28/2023) Active Problems Problem Noted Date Diagnosed Date [...] as of this encounter (statuses as of 05/28/2023) Resolved Problems Problem Noted Date Diagnosed Date [...] as of this encounter (statuses as of 05/28/2023) Immunizations Name Administration Dates Next Due COVID-19 mRNA, LNP-s, No Pre serve, 2-Dose Series (Moderna) 09/03/2020,07/31/2020 Covid-19, Mrna, Lnp-s, Pf, B ivalent, 30 Mcg, IM, 12 yrs and above (Pfizer) 06/22/2022 Hepatitis B, 20+ yrs 01/15/2017,08/14/19 17,07/10/2016,09/25 Pneumococcal Conjugate Vacci ne, 20-valent ([id number]) 05/10/2022 Pneumococcal Polysaccharide PPV23 (Pneumovax) 07/14/2018,12/06/2006 SEASONAL [...] encounter Miscellaneous Notes * Telephone Encounter - Nicolle Finley LPN - 05/28/2023 10:36 AM EST Care Gaps Comprehensive Care Outreach Last Office/Telemedicine Visit: 04/04/2023 (in office), Visit date not found (telemedicine) Next Office Visit: 08/06/2023 Hemoglobin AIC Results: Lab Results Component Value Date/Time HEMOGLOBIN A1C - [facility] 8.1 (H) 04/04/2023 01:41 PM HEMOGLOBIN A1C - [facility] 8.0 (H) 12/21/2022 12:31 PM HEMOGLOBIN A1C - [facility] 7.6 (H) 05/10/2022 02:09 PM HEMOGLOBIN A1C - [facility] 8.0 (H) 09/29/2019 02:13 PM HEMOGLOBIN A1C - [facility] 7.5 (H) 07/14/2018 10:34 AM HEMOGLOBIN A1C - [facility] 7.6 (H) 01/10/2018 09:08 AM Reviewed Health Maintenance below: Health Maintenance Topic Date Due *SPIROMETRY ONCE FOR ASTHMA-ADULT Never done Diabetic Eye Exam 09/15/2020 Depression Screening 05/12/2021 Colorectal Cancer Screening 06/10/2022 COVID-19 Vaccine ( season) 2023 Diabetic Foot Exam 05/10/2023 Pft Eye colon Care Gap Outreach Action Taken: Left message documented in this encounter Plan of Treatment Upcoming Encounters Date Type Department Care Team (Late st Contact Info) Description 06/05/2023 9:00 AM EST Telemedicine Endocrinology, [place] [address] [place] [address] Roberta Nicole PA-C [address] [place] [address] 06/06/2023 8:00 AM EST Office Visit [facility] Disorders C[facility], [place] [address] [place] [phone] Mi Rankin DO [address] [place] [address] 06/26/2023 8:40 AM EST Office Visit Dermatology [facility] [place] [address] [place] [address] Jenna Marie PA-C 200 [facility] [place] [phone] 08/06/2023 2:00 PM EST Office Visit General Internal Medicine [facility] [place] [address] [place] [address] Ramonita Pisano MD 200 [facility] [place] [address] Health Maintenance Due Date Last Done Comments [...] filedocumented as of this encounter Care Teams Manager Generation Relationship Specialty Start Date End Date Ramonita Pisano MD 200 [place] [address] PCP - General 02/25/09 documented as of this encounter
--- OUTSIDE RECORDS SUMMARY | 2023-10-04 08:33 | External Medical Summary | Summary of Care ---
Author Name Unknown Organization [facility] Address [address] [place] [address] Phone [phone] Care Team Providers Care Water Pump Servicer Name Role Phone Lucio Pisano MD Primary Care Provider [phone] Reason for Visit * Reason Comments eRx-Medication Refill Encounter Details Date Type Department Care Team Description 04/19/2023 Refill General Internal Medicine [facility] 200 [facility] [place] [address] Lucio Pisano MD 200 [place] [address] Viral URI with cough Allergies Active Allergy Reactions Severity Noted Date Comments Gluten Diarrhea Medium 07/26/2010 History of Celiacs disease documented as of this encounter (statuses as of 04/20/2023) Medications Medication Sig Dispensed Refills Start Date [...] Active BUPROPION HCL (XL) 300 MG PO [id number]: Bipolar disorder (HCC) 1 TABLET DAILY 0 [...] 09/12/2019 Active Selenium Sulfide 2.5 % External LotionIndication s:Seborrheic dermatitis Apply topically to affected area daily. into wet scalp, leave 5 min for 2 weeks then once every 1-4 weeks for maintenance 120 mL 12/22/2020 Active Ketoconazole 2 % External Shampoo (Nizoral)Indicat ions:Seborrheic dermatitis APPLY TOPICALLY TO AFFECTED AREA(S) OF SCALP 2 TO 3 TIMES PER WEEK 120 mL 01/27/2021 Active Fluticasone-Salm eterol 250-50 MCG/DOSE Inhalation Aerosol Powder Breath Activated (Advair Diskus) INHALE 1 PUFF BY MOUTH TWO TIMES DAILY 1 Each 09/29/2021 Active Glucagon Emergency 1 MG Injection KitIndications:H ypoglycemia As directed 2 Kit 09/29/2021 Active Atorvastatin Calcium 20 MG Oral [...] hemoglobin A1c goal of less than 7.0% ([facility]) INJECT 70 UNITS EVERY DAY [...] for wheezing 48 g 3 04/04/2023 Active Viablewareuch Ultra In Vitro Strip (Glucose Blood)Indication s:Type 1 diabetes mellitus with hemoglobin A1c goal of less than 7.0% ([facility]) USE TO TEST BLOOD SUGAR [...] FOR COUGH 90 Capsule 0 04/20/2023 Active Benzonatate 100 MG Oral Capsule (Tessalon Perles)Indicatio ns:Viral URI with cough TAKE 1 CAPSULE BY MOUTH THREE TIMES DAILY NEEDED FOR COUGH 90 Capsule 0 03/20/2023 04/20/20 23 Discontinued Hospital, Clinic, or Other Facility Administered [...] as of this encounter (statuses as of 04/20/2023) Active Problems Problem Noted Date Sleep walking [...] as of this encounter (statuses as of 04/20/2023) Resolved Problems Problem Noted Date Resolved Date [...] as of this encounter (statuses as of 04/20/2023) Immunizations Name Administration Dates Next Due COVID-19 mRNA, LNP-s, No Pre serve, 2-Dose Series (Moderna) 09/03/2020,07/31/2020 Covid-19, Mrna, Lnp-s, Pf, B ivalent, 30 Mcg, IM, 12 yrs and above (Pfizer) 06/22/2022 Hepatitis B, 20+ yrs 01/15/2017,08/14/19 17,07/10/2016,09/25 Pneumococcal Conjugate Vacci ne, 20-valent ([id number]) 05/10/2022 Pneumococcal Polysaccharide PPV23 (Pneumovax) 07/14/2018,12/06/2006 SEASONAL [...] encounter Miscellaneous Notes * Telephone Encounter - Lucio Pisano MD - 04/20/2023 9:37 AM EDTSigned Prescriptions: Disp Refills Benzonatate 100 MG Oral Capsule (Tessalon *90 Cap*0 Sig: TAKE 1 CAPSULE BY MOUTH THREE TIMES DAILY NEEDED FOR COUGH Authorizing Provider: LUCIO PISANO * Telephone Encounter - Clara Hopkins, [facility] - 04/19/2023 5:53 PM EDT Pending Prescriptions: Disp Refills Benzonatate 100 MG Oral Capsule [Pharmacy *90 Cap*0 Sig: TAKE 1 CAPSULE BY MOUTH THREE TIMES DAILY NEEDED FOR COUGH * Telephone Encounter - Claraant Hopkins [facility] - 04/19/2023 5:52 PM EDT [facility] is currently not authorized to approve refills for the pended medication(s) per refill protocol. Please approve if appropriate. Did you pend patient's preferred pharmacy and medication before forwarding?yes Pharmacy: [facility] [id number] [place] Pending Prescriptions: Disp Refills Benzonatate 100 MG Oral Capsule (Tessalon*90 Cap*0 Sig: TAKE 1 CAPSULE BY MOUTH THREE TIMES DAILY NEEDED FOR COUGH Last Visit: 04/04/2023 (in office), Visit date not found (telemedicine) Next Visit: 08/06/2023 If no future appointments scheduled, and last appointment is greater than a year ago, please schedule patient for a follow-up appointment Last date the medication was ordered: 03/20/23 Is this request for a controlled substance?No Urine Drug Screen:No results found for this or any previous visit. Patient Phone Numbers Labs: Lab Results Component Value Date/Time CREAT 0.9 12/21/2022 12:31 PM CREAT 0.9 09/29/2019 02:13 PM POTASSIUM 4.3 12/21/2022 12:31 PM POTASSIUM 5.0 09/29/2019 02:13 PM TSH 1.55 04/04/2023 01:41 PM TSH 1.00 09/29/2019 02:13 PM LDLCALC 77 12/21/2022 12:31 PM LDLCALC 96 06/27/2016 11:14 AM LDLDIRECT 87 09/29/2021 09:57 AM LDLDIRECT 135 (H) 09/29/2019 02:13 PM ALT 33 12/21/2022 12:31 PM ALT 13 09/29/2019 02:13 PM HGBA1C 8.1 (H) 04/04/2023 01:41 PM HGBA1C 8.0 (H) 09/29/2019 02:13 PM Thank you, Clara Hopkins, PharmD Clinical Pharmacist [facility] ([facility]) (formerly Telepharmacy) 04/19/23 5:53 PM [phone] documented in this encounter Plan of Treatment Upcoming Encounters Date Type Specialty Care Team Description 06/05/2023 Telemedicine Endocrinology Roberta Nicloe PA-C [address] [place] [address] 06/06/2023 Office Visit Sleep Disorders Mi Rankin, DO [address] [place] [address] 06/26/2023 Office Visit Dermatology Jenna Marie PA-C [address] [place] [phone] 08/06/2023 Office Visit Internal Medicine Lucio Pisano MD [address] [place] [address] Health Maintenance Due Date Last Done Comments [...] as of this encounter Visit Diagnoses Diagnosis Viral URI with cough Acute upper respiratory infections of unspecified site documented in this encounter Care Teams Water Pump Servicer Relationship Specialty Start Date End Date Lucio Pisano MD [address] [place] [address] [place] [address] PCP - General 02/25/09 documented as of this encounter
--- OUTSIDE RECORDS SUMMARY | 2023-10-04 08:33 | External Medical Summary | Summary of Care ---
Author Name Unknown Organization [facility] Address [address] [place] [address] Phone [phone] Care Team Providers Care Top Frame Fitter Name Role Phone Lucio Pisano MD Primary Care Provider [phone] Reason for Visit * Reason Comments eRx-Medication Refill Encounter Details Date Type Department Care Team (Late st Contact Info) Description 07/21/2023 Refill General Internal Medicine [facility] 200 [place] [address] Lucio Pisano MD 200 [place] [address] Hyperlipidemia with target LDL less than 100 Allergies Active Allergy Reactions Criticality Noted Date Comments Gluten Diarrhea Medium 07/26/2010 History of Celiacs disease documented as of this encounter (statuses as of 07/22/2023) Medications Medication Sig Dispensed Refills Start Date [...] Active BUPROPION HCL (XL) 300 MG PO [id number]: Bipolar disorder (HCC) 1 TABLET DAILY 0 [...] hemoglobin A1c goal of less than 7.0% ([facility]) INJECT 70 UNITS EVERY DAY PER INSULIN [...] hemoglobin A1c goal of less than 7.0% ([facility]) USE TO TEST BLOOD SUGAR UP TO 7 TIMES DAILY. 700 Strip 1 04/04/2023 Active Fluticasone-Salm eterol 250-50 MCG/ACT Inhalation Aerosol Powder Breath Activated (Advair Diskus) Inhale 1 Puff by mouth in the morning and 1 Puff before bedtime. 3 Each 3 04/04/2023 Active Benzonatate 100 MG Oral Capsule (Tessalon Perlanisha)Indicatio ns:Viral URI with cough TAKE 1 CAPSULE [...] EVERY DAY 90 Tablet 1 07/22/2023 Active Atorvastatin Calcium 20 MG Oral Tablet (Lipitor)Indicat ions:Hyperlipide ashley with target LDL less than 100 TAKE 1 TABLET BY MOUTH EVERY DAY 90 Tablet 2 10/19/2022 07/22/19 24 Discontinued documented as of this encounter (statuses as of 07/22/2023) Active Problems Problem Noted Date Diagnosed Date [...] as of this encounter (statuses as of 07/22/2023) Resolved Problems Problem Noted Date Diagnosed Date [...] as of this encounter (statuses as of 07/22/2023) Immunizations Name Administration Dates Next Due COVID-19 mRNA, LNP-s, No Pre serve, 2-Dose Series (Moderna) 09/03/2020,07/31/2020 Covid-19, Mrna, Lnp-s, Pf, B ivalent, 30 Mcg, IM, 12 yrs and above (Pfizer) 06/22/2022 Hepatitis B, 20+ yrs 01/15/2017,08/14/19 17,07/10/2016,09/25 Pneumococcal Conjugate Vacci ne, 20-valent ([id number]) 05/10/2022 Pneumococcal Polysaccharide PPV23 (Pneumovax) 07/14/2018,12/06/2006 Seasonal [...] encounter Miscellaneous Notes * Telephone Encounter - Angélica Ruiz RPh - 07/22/2023 1:05 PM ESTSigned Prescriptions: Disp Refills Atorvastatin Calcium 20 MG Oral Tablet (Li*90 Tab*1 Sig: TAKE 1 TABLET BY MOUTH EVERY DAYAuthorizing Provider: LUCIO PISANOOrderjosué User: ANGÉLICA RUIZ documented in this encounter Plan of Treatment Upcoming Encounters Date Type Department Care Team (Late st Contact Info) Description 08/06/2023 2:00 PM EST Office Visit General Internal Medicine [place] 200 [place] [address] Lucio Pisano MD 200 [place] [address] Health Maintenance Due Date Last Done Comments [...] 07/10/2026 07/10/2016, 04/16/2004 Lipid Panel 12/22/2027 12/21/2022, 110 09/2021, 09/29/2021, Additional history exists Hepatitis B [...] of this encounter Visit Diagnoses Diagnosis Hyperlipidemia with target LDL less than 100 Other and unspecified hyperlipidemia documented in this encounter Care Teams Top Frame Fitter Relationship Specialty Start Date End Date Lucio Pisano MD [address] [place] [address] PCP - General 02/25/09 documented as of this encounter
--- OUTSIDE RECORDS SUMMARY | 2023-10-04 08:33 | External Medical Summary | Summary of Care ---
Author Name Unknown Organization [facility] Address [address] [place] [address] Phone [phone] Care Team Providers Care Pull Socket Assembler Name Role Phone Ramonita Pisano MD Primary Care Provider [phone] Reason for Visit * Reason Comments eRx-Medication Refill Encounter Details Date Type Department Care Team (Late st Contact Info) Description 05/05/2023 Refill General Internal Medicine [facility] 200 [facility] [address] Ramonita Pisano MD 200 [place] [address] Gastroesophageal reflux disease without esophagitis Allergies Active Allergy Reactions Criticality Noted Date Comments Gluten Diarrhea Medium 07/26/2010 History of Celiacs disease documented as of this encounter (statuses as of 05/05/2023) Medications Medication Sig Dispensed Refills Start Date [...] Active BUPROPION HCL (XL) 300 MG PO [id number]: Bipolar disorder (HCC) 1 TABLET DAILY 0 [...] hemoglobin A1c goal of less than 7.0% ([facility]) INJECT 70 UNITS EVERY DAY [...] hemoglobin A1c goal of less than 7.0% ([facility]) USE TO TEST BLOOD SUGAR [...] THE DAY 90 Capsule 1 05/05/2023 Active Omeprazole 20 MG Oral Capsule Delayed Release (PriLOSEC)Indica tions:Gastroesop hageal reflux disease without esophagitis TAKE 1 CAPSULE BY MOUTH EVERY DAY, 1 HOUR BEFORE THE FIRST MEAL OF THE DAY 90 Capsule 1 11/02/2022 05/05/20 23 Discontinued Hospital, Clinic, or Other Facility [...] as of this encounter (statuses as of 05/05/2023) Active Problems Problem Noted Date Diagnosed Date [...] as of this encounter (statuses as of 05/05/2023) Resolved Problems Problem Noted Date Diagnosed Date [...] as of this encounter (statuses as of 05/05/2023) Immunizations Name Administration Dates Next Due COVID-19 mRNA, LNP-s, No Pre serve, 2-Dose Series (Moderna) 09/03/2020,07/31/2020 Covid-19, Mrna, Lnp-s, Pf, B ivalent, 30 Mcg, IM, 12 yrs and above (Pfizer) 06/22/2022 Hepatitis B, 20+ yrs 01/15/2017,08/14/19 17,07/10/2016,09/25 Pneumococcal Conjugate Vacci ne, 20-valent ([id number]) 05/10/2022 Pneumococcal Polysaccharide PPV23 (Pneumovax) 07/14/2018,12/06/2006 SEASONAL [...] = 0.6 oz pur e alcohol) socially Sex and Gender Information Value Date Recorded Sex Assigned at Male 09/16/2019 3:17 PM EDT Gender Identity Male 09/16/2019 3:17 PM EDT Sexual Orientation Choose not to disclose 2019 3:17 PM EDT Job Start Date Occupation Industry Not on file Not on file Not on file documented as of this encounter Miscellaneous Notes * Telephone Encounter - Jessee Spears RPh - 05/05/2023 3:21 PM EDT Signed Prescriptions: Disp Refills Omeprazole 20 MG Oral Capsule Delayed Rele*90 Cap*1 Sig: TAKE 1 CAPSULE BY MOUTH EVERY DAY 1 HOUR BEFORE THE FIRST MEAL OF THE DAYAuthorizing Provider: Susana PISANO User: JESSEE SPEARS ----- documented in this encounter Plan of Treatment Upcoming Encounters Date Type Department Care Team (Late st Contact Info) Description 06/05/2023 9:00 AM EST Telemedicine Endocrinology, [place] [address] [place] [facility] [place] [address] Roberta Nicole PA-C [address] [facility] [place] [address] 06/06/2023 8:00 AM EST Office Visit Sleep Disorders Ctr Mitzi Gardner [place] [address] [place] [phone] Mi Rankin DO [address] [place] [address] 06/26/2023 8:40 AM EST Office Visit Dermatology [facility] [address] [place] [address] Jenna Marie PA-C 200 [facility] [place] [phone] 08/06/2023 2:00 PM EST Office Visit General Internal Medicine [facility] 200 [facility] [place] [facility] [place] [address] Ramonita Pisano MD 200 [facility] [place] [address] Health Maintenance Due Date Last Done Comments [...] 05/01/2021, Additional history exists GFR 12/22/2023 12/21/2022, 0 09/2021, 09/29/2021, Additional history exists TSH 04/04/2024 04/04/2023, 12/06, 05/10/2022, Additional history exists DTaP,Tdap,and Td Vaccines (3 - Td or Tdap) 07/10/2026 07/10/2016, 04/16/2004 Lipid Panel 12/22/2027 12/21/2022, 0 09/2021, 09/29/2021, Additional history exists Hepatitis B [...] as of this encounter Visit Diagnoses Diagnosis Gastroesophageal reflux disease without esophagitis Esophageal reflux documented in this encounter Care Teams Pull Socket Assembler Relationship Specialty Start Date End Date Ramonita Pisano MD [address] [place], [place] [address] PCP - General 02/25/09 documented as of this encounter
--- OUTSIDE RECORDS SUMMARY | 2023-10-04 08:33 | External Medical Summary | Summary of Care ---
Author Name Unknown Organization [facility] Address [address] [place] [address] Phone [phone] Care Team Providers Care Online Merchandiser Name Role Phone Lucio Pisano MD Primary Care Provider [phone] Reason for Visit * Reason Comments eRx-Medication Refill Encounter Details Date Type Department Care Team (Late st Contact Info) Description 07/31/2023 Refill General Internal Medicine [facility] 200 [place] [address] Lucio Pisano MD 200 [facility] [address] Erectile dysfunction, unspecified erectile dysfunction type Allergies Active Allergy Reactions Criticality Noted Date Comments Gluten Diarrhea Medium 07/26/2010 History of Celiacs disease documented as of this encounter (statuses as of 08/01/2023) Medications Medication Sig Dispensed Refills Start Date [...] Active BUPROPION HCL (XL) 300 MG PO [id number]:Bi polar disorder (HCC) 1 TABLET DAILY 0 [...] hemoglobin A1c goal of less than 7.0% ([facility]) INJECT 70 UNITS EVERY DAY [...] hemoglobin A1c goal of less than 7.0% ([facility]) USE TO TEST BLOOD SUGAR [...] DOSE IN 24 HOURS 10 Tablet 11 08/01/2023 Active documented as of this encounter (statuses as of 08/01/2023) Active Problems Problem Noted Date Diagnosed Date [...] as of this encounter (statuses as of 08/01/2023) Resolved Problems Problem Noted Date Diagnosed Date [...] as of this encounter (statuses as of 08/01/2023) Immunizations Name Administration Dates Next Due COVID-19 mRNA, LNP-s, No Pre serve, 2-Dose Series (Moderna) 09/03/2020,07/31/2020 Covid-19, Mrna, Lnp-s, Pf, B ivalent, 30 Mcg, IM, 12 yrs and above (Pfizer) 06/22/2022 Hepatitis B, 20+ yrs 01/15/2017,08/14/19 17,07/10/2016,09/25 Pneumococcal Conjugate Vacci ne, 20-valent ([id number]) 05/10/2022 Pneumococcal Polysaccharide PPV23 (Pneumovax) 07/14/2018,12/06/2006 Seasonal [...] Telephone Encounter - Lucio Pisano MD - 08/01/2023 11:49 AM ESTSigned Prescriptions: Disp Refills Sildenafil Citrate 50 MG Oral Tablet 10 Tab*11 Sig: TAKE 1 TABLET BY MOUTH ONCE FOR ONE DOSE 1-4 HOURS BEFORE INTERCOURSE. NO MORE THAN 1 DOSE IN 24 HOURS Authorizing Provider: LUCIO PISANO * Telephone Encounter - Nohemy Rm [facility] - 08/01/2023 10:55 AM ESTPending Prescriptions: Disp Refills Sildenafil Citrate 50 MG Oral Tablet [Phar*10 Tab*11 Sig: TAKE 1 TABLET BY MOUTH ONCE FOR ONE DOSE 1-4 HOURS BEFORE INTERCOURSE. NO MORE THAN 1 DOSE IN 24 HOURS * Telephone Encounter - Nohemy Rm RPh - 08/01/2023 10:54 AM EST Unable to authorize medication refills for pended medication(s) at this time. Part of the protocol criteria used for refill authorization was not satisfied. Patient needs a HR less than 100 in past year. Please approve if appropriate. Pulse Readings from Last 3 Encounters: 04/04/23 102 12/24/22 101 05/10/22 95 Nohemy Zazueta, PharmD Clinical Pharmacist Centralized Clinical Pharmacy Services (CCPS) (formerly Telepharmacy) [phone] 08/01/2023 10:54 AM documented in this encounter Plan of Treatment Upcoming Encounters Date Type Department Care Team (Late st Contact Info) Description 08/06/2023 2:00 PM EST Office Visit General Internal Medicine [place] [address] [place], [place] [address] Lucio Pisaon MD 200 [facility] [place] [address] Health Maintenance Due Date Last Done Comments [...] as of this encounter Visit Diagnoses Diagnosis Erectile dysfunction, unspecified erectile dysfunction type documented in this encounter Care Teams Online Merchandiser Relationship Specialty Start Date End Date Lucio Pisano MD [facility] [place] [address] PCP - General 8/21/09 documented as of this encounter
--- OUTSIDE RECORDS SUMMARY | 2023-10-04 08:34 | External Medical Summary | Summary of Care ---
Author Name Unknown Organization [facility] Address [address] [place] [address] Phone [phone] Care Team Providers Care Shopfitter Name Role Phone Ramonita Pisano MD Primary Care Provider [phone] Reason for Referral * Evaluate & Treat - Unlimited Visits (Within 30 days (routine)) - Pending Review Specialty Diagnoses / Procedures Referred By Carmen t Referred To Contact Dermatology Diagnoses Acne, unspecified acne type Skin cancer screening Ramonita Pisano MD [address] [place] [address] Referral ID Status Reason Start Date Expiration Date Visits Requested Visits Authorized [id number] Pending Review Specialty Services Required 04/04/[phone] Question Answer Referral Priority Within 30 days (routine) Are you referring the patient for Mohs Surgery and have a current positive skin cancer biopsy result? No What is the reason for the patient referral? Acne/Warts/Molluscum Comments Skin check * Evaluate & Treat - Unlimited Visits (Within 30 days (routine)) - Pending Review Specialty Diagnoses / Procedures Referred By Carmen t Referred To Contact Endocrinology/Metabolism / Endocrinology Diagnoses Type 1 diabetes mellitus with hemoglobin A1c goal of less than 7.0% ([facility]) Ramonita Pisano MD [address] [place] [address] Referral ID Status Reason Start Date Expiration Date Visits Requested Visits Authorized [id number] Pending Review Specialty Services Required 04/04/[phone] Question Answer Referral Priority Within 30 days (routine) For what condition is the patient being referred? Diabetes Mellitus For which diabetes condition are you referring? Type 1 Comments Uncontrolled nakul night time due to eating at night * Ancillary Services (Within 30 days (routine)) - Pending Review Specialty Diagnoses / Procedures Referred By Carmen peguero Referred To Contact Gastroenterology Diagnoses Special screening for malignant neoplasms, colon Ramonita Pisano MD [address] [facility] [place] [address] Referral ID Status Reason Start Date Expiration Date Visits Requested Visits Authorized [id number] Pending Review Ancillary Services Required 04/04/[phone] Question Answer Referral Priority Within 30 days (routine) Comments ALERT: Do not order for pediatric patients (18 years or younger). Cancel off screen and order PEDS GASTROENTEROLOGY CONSULT (Type: 1 visit only-Evaluate and Treat) The following Pt. Instructions are available: - Gastro Colonoscopy Prep Instructions [03128] - Gastro Colonoscopy Prep Instructions (Vincentian Version) [[id number]] Go to the Pt. Instructions section within the Visit Navigator to access. Colonoscopy ASGE Guidelines: Average risk screening (begin at age 50, 10 year intervals) ADDITIONAL INFORMATION 1. Is the patient on Coumadin? No 2. Is the patient on Pradaxa? No Reason for Visit * Reason Onset Date Comments Follow Up Fatigue States he is fidelia y tired. Medication Administration 04/04/2023 Flu an d/or Pneumo Inj Encounter Details Date Type Department Care Team Description 04/04/2023 Office Visit General Internal Medicine [facility] [place] [address] [place], [place] [address] Ramonita Pisano MD [address] [facility] [place] [address] Sleep walking and eating*; Type 1 diabetes mellitus with hemoglobin A1c goal of less than 7.0% (HCC); Need for prophylactic vaccination and inoculation against influenza; Malaise and fatigue; Special screening for malignant neoplasms, colon; Bipolar II disorder (HCC); Mild nonproliferative diabetic retinopathy of both eyes without macular edema associated with type 2 diabetes mellitus (HCC); 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HCC); Elevated hemoglobin (HCC); Acquired hypothyroidism; Celiac disease; 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 hyperactivity; Mild persistent asthma without complication; Allergic sinusitis; History of kidney stones; 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 (HCC); Hyperlipidemia LDL goal <100; Pain in both lower extremities; Encounter for long-term (current) use of medications; Acne, unspecified acne type; Skin cancer screening Allergies Active Allergy Reactions Severity Noted Date Comments Gluten Diarrhea Medium 07/26/2010 History of Celiacs disease documented as of this encounter (statuses as of 04/07/2023) Medications Medication Sig Dispensed Refills Start Date End Date Status SEROQUEL 100 MG PO TABS at bedtime 0 0 9 Active SEROQUEL 50 MG PO TABS at bedtime 0 11 9 Active AMPHETAMINE SALT COMBO 10 MG PO TABS 1-2 tabs twice daily 0 0 9 Active ONETOUCH ULTRASOFT LANCETS MISC use up to 10 times a day one month supply 11 9 Active BUPROPION HCL (XL) 300 MG PO [id number]: Bipolar disorder (HCC) 1 TABLET DAILY 0 2 Active TEMAZEPAM 30 MG PO CAPS at bedtime daily as needed 0 Active fluticasone (FLONASE) 50 MCG/ACT nasal spray INHALE 2 SPRAYS INTO EACH NOSTRIL ONE TIME DAILY 1 Bottle 5 5 Active fexofenadine (HKAI) 180 MG TabletIndication s:Atopic dermatitis Take 1 Tablet by mouth daily as needed for Allergies. 30 Tab 11 6 Active Insulin Infusion Pump Supplies MISCIndications: DM type 1 nursing care encounter (HCC) As directed 3 Box Dosing Unit 3 7 Active LORAzepam (ATIVAN) 0.5 MG Tablet Take 1 Tablet by mouth at bedtime as needed for Anxiety. 30 Tab 0 7 Active Clindamycin Phos-Benzoyl Perox 1-5 % gelIndications:A cne, unspecified acne type Apply topically to affected area 2 times a day. To affected area (after washing and drying area) on acne 60 g 11 9 Active metronidazole (METROGEL) 0.75 % gel Apply topically to affected area 2 times a day. On cheek 45 g 11 9 Active tacrolimus (PROTOPIC) 0.1 % ointmentIndicati ons:Lichen planus Apply to purple patch in the genital area twice daily 30 g 0 9 Active hydrocortisone 2.5 % creamIndications :Seborrheic dermatitis Apply to dry patches on the face 2-3 x's per week as needed for flares. 20 g 1 9 Active lamoTRIgine (LAMICTAL) 200 MG Tablet Take 1 Tablet by mouth in the morning. 0 0 Active Selenium Sulfide 2.5 % External LotionIndication s:Seborrheic dermatitis Apply topically to affected area daily. into wet scalp, leave 5 min for 2 weeks then once every 1-4 weeks for maintenance 120 mL 11 1 Active Ketoconazole 2 % External Shampoo (Nizoral)Indicat ions:Seborrheic dermatitis APPLY TOPICALLY TO AFFECTED AREA(S) OF SCALP 2 TO 3 TIMES PER WEEK 120 mL 5 1 Active Fluticasone-Salm eterol 250-50 MCG/DOSE Inhalation Aerosol Powder Breath Activated (Advair Diskus) INHALE 1 PUFF BY MOUTH TWO TIMES DAILY 1 Each 2 Active Glucagon Emergency 1 MG Injection KitIndications:H ypoglycemia As directed 2 Kit 5 2 Active Atorvastatin Calcium 20 MG Oral Tablet (Lipitor)Indicat ions:Hyperlipide ashley with target LDL less than 100 TAKE 1 TABLET BY MOUTH EVERY DAY 90 Tablet 2 3 Active Omeprazole 20 MG Oral Capsule Delayed Release (PriLOSEC)Indica tions:Gastroesop hageal reflux disease without esophagitis TAKE 1 CAPSULE BY MOUTH EVERY DAY, 1 HOUR BEFORE THE FIRST MEAL OF THE DAY 90 Capsule 1 3 Active Insulin Aspart 100 UNIT/ML Injection Solution (NovoLOG)Indicat ions:Type 1 diabetes mellitus with hemoglobin A1c goal of less than 7.0% ([facility]) INJECT 70 UNITS EVERY DAY PER INSULIN PUMP 60 mL 2 3 Active Levothyroxine Sodium 100 MCG Oral Tablet (Levoxyl)Indicat ions:Hypothyroid ism TAKE 1 TABLET BY MOUTH EVERY DAY AT LEAST 30 MINUTES BEFORE BREAKFAST OR OTHER MEDICATIONS 90 Tablet 3 3 Active Benzonatate 100 MG Oral Capsule (Lakeshia Levy)Indicatio ns:Viral URI with cough TAKE 1 CAPSULE BY MOUTH THREE TIMES DAILY NEEDED FOR COUGH 90 Capsule 0 3 Active Albuterol Sulfate HFA 108 (90 Base) MCG/ACT Inhalation Aerosol Solution Use two puffs every four hours as needed for wheezing 48 g 3 3 Active OneTouch Ultra In Vitro Strip (Glucose Blood)Indication s:Type 1 diabetes mellitus with hemoglobin A1c goal of less than 7.0% (HCC) USE TO TEST BLOOD SUGAR UP TO 7 TIMES DAILY. 700 Strip 1 3 Active Fluticasone-Salm eterol 250-50 MCG/ACT Inhalation Aerosol Powder Breath Activated (Advair Diskus) Inhale 1 Puff by mouth in the morning and 1 Puff before bedtime. 3 Each 3 3 Active Doxycycline Hyclate 100 MG Oral CapsuleIndicatio ns:Acne, unspecified acne type Take 1 Capsule by mouth in the morning and 1 Capsule before bedtime. Do all this for 14 days. 28 Capsule 0 3 04/18/20 23 Active Albuterol Sulfate HFA 108 (90 Base) MCG/ACT Inhalation Aerosol Solution Use two puffs every four hours as needed for wheezing 18 g 11 2 04/04/20 23 Discontinued(Ref ill) Baclofen 10 MG Oral Tablet (Lioresal)Indica tions:Pain in joint of left shoulder Take by mouth 1 Tablet in the morning AND 1 Tablet before bedtime. 20 Tablet 1 2 04/04/20 23 Discontinued OneTouch Ultra In Vitro Strip (Glucose Blood)Indication s:Type 1 diabetes mellitus with hemoglobin A1c goal of less than 7.0% (HCC) USE TO TEST BLOOD SUGAR UP TO 7 TIMES DAILY. 700 Strip 1 3 04/04/20 23 Discontinued(Ref ill) Hospital, Clinic, or Other Facility Administered Medication Ordered Dose Route Frequency Start Date End Date Status Albuterol Sulfate (Proventil) (2.5 MG/3ML) 0.083% inhalation solution 2.5 mgIndications:Mild persistent asthma without complication 2.5 mg NEBULIZER PRN 05/10/2022 05/10/2023 Acti ve albuterol (VENTOLIN HFA/PROVENTIL HFA) inhalerIndications:Mild persistent asthma without complication 3 Puff IN PRN 05/10/2022 05/10/2023 Acti ve documented as of this encounter (statuses as of 04/07/2023) Active Problems Problem Noted Date Sleep walking [...] as of this encounter (statuses as of 04/07/2023) Resolved Problems Problem Noted Date Resolved Date [...] as of this encounter (statuses as of 04/07/2023) Immunizations Name Administration Dates Next Due COVID-19 mRNA, LNP-s, No Pre serve, 2-Dose Series (Moderna) 09/03/2020,07/31/2020 Covid-19, Mrna, Lnp-s, Pf, B ivalent, 30 Mcg, IM, 12 yrs and above (Pfizer) 06/22/2022 Hepatitis B, 20+ yrs 01/15/2017,08/14/19 17,07/10/2016,09/25 Pneumococcal Conjugate Vacci ne, 20-valent ([id number]) 05/10/2022 Pneumococcal Polysaccharide PPV23 (Pneumovax) 07/14/2018,12/06/2006 SEASONAL [...] Sign Reading Time Taken Comments Blood Pressure 118/86 04/04/2023 12:58 PM EDT Pulse 102 04/04/2023 12:58 PM EDT Temperature 36.9 C (98.4 F) 04/04/2023 1 2:58 PM EDT Respiratory Rate - - Oxygen Saturation 98% 04/04/2023 12: 58 PM EDT Inhaled Oxygen Concentration - - Weight 79.2 kg (174 lb 11.2 oz) 023 12:58 PM EDT Height - - Body Mass Index 27.36 12/24/2022 3:16 PM EDT documented in this encounter Progress Notes * Ramonita Pisano MD - 04/04/2023 12:59 PM EDT Images from the original note were not included. History of Present Illness Tavon Vasquez is a 47 year old male that presents for Follow Up, Fatigue (States he is very tired. ), and Medication Administration (Flu and/or Pneumo Inj) 47 YOF with PMH of DM on insulin pump, hypothyroidism, asthma/allergy, bipolar, SLE, ADD, celiac diseases, presents here for recheck. Acute concern :- -ongoing fatigue . Snores intermittently per , times erratic breathing -nighttime walking up with restless leg/cramps and usually eats when his sugar becomes the worst -more acne in back Interimmedical history : been using preventive inhaler and asthma been controlled Watching diet and exercise : good but not as much exercise as in past and eating is very good except night time which is hard to be controlled Routine labs : due Routine HM : agreeable to catch up Chronic medical problem: reviewed and stable Physical Exam Vitals: 04/04/23 1258 Temp: 36.9 C (98.4 F) Pulse: 102 SpO2: 98% BP: 118/86 Physical Exam Vitals and nursing note reviewed. Constitutional: General: He is not in acute distress. Appearance: He is normal weight. HENT: Head: Normocephalic. Cardiovascular: Rate and Rhythm: Normal rate and regular rhythm. Pulmonary: Effort: Pulmonary effort is normal. No respiratory distress. Breath sounds: No wheezing. Abdominal: General: Bowel sounds are normal. There is no distension. Palpations: Abdomen is soft. There is no mass. Musculoskeletal: General: No swelling, tenderness or signs of injury. Cervical back: Neck supple. No rigidity. Skin: General: Skin is warm. Findings: No erythema, lesion or rash. Comments: Moderately inflamed acne on back Neurological: General: No focal deficit present. Mental Status: He is alert. Motor: No weakness. Psychiatric: Mood and Affect: Mood normal. I have reviewed the following results: Assessment and Plan Sleep walking and eating Pt to discuss with psych Gabapentin might help with cramps and prevent waking up Type 1 diabetes mellitus with hemoglobin A1c goal of less than 7.0% ([facility]) - OneTouch Ultra In Vitro Strip (Glucose Blood); USE TO TEST BLOOD SUGAR UP TO 7 TIMES DAILY. - HEMOGLOBIN A1C; Future - ENDOCRINOLOGY REFERRAL OP Need for prophylactic vaccination and inoculation against influenza - INFLUENZA VACC, QUAD, PF, 6 MONTHS & UP, 0.5 ML, IM Malaise and fatigue ? 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 diabetes mellitus (HCC) 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HCC) Elevated hemoglobin (HCC) Acquired hypothyroidism - TSH; Future Celiac disease 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 hyperactivity Stable Continue current treatment as directed by psych Mild persistent asthma without complication Stable Continue current treatment as directed Allergic sinusitis History of kidney stones 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 Do all this for 14 days. - DERMATOLOGY REFERRAL OP Skin cancer screening - DERMATOLOGY REFERRAL OP Wrap-Up Time: I spent a total of 40-54 minutes (exact time 45 mins) on the date of service in preparation, delivery, and documentation of the care provided to Tavon Vasquez excluding any time spent in the performance of separately billed services. * Mariajose Higgins LPN - 04/04/2023 12:57 PM EDT PRE - ADMINISTRATION DOCUMENTATION Are you experiencing any cold symptoms or fever? No Have you had Guillain-[place] Syndrome (an illness that causes paralysis) within the last 6 weeks? No Have you had the flu shot in the past? YES Have you ever had a reaction to the flu shot? No Mariajose Higgins LPN, 04/04/2023 12:57 PM Immunization Administration Documentation Time Out Procedure Performed: Yes Patient Identified (Ask Name/Date of ): Yes Does the patient have a fever greater than 101 degrees today? No Patient allergic to latex? No VFC Stock: No Immunization(s) verified: Yes, Immunization Name: Flu, VIS Sheet(s) given: Yes Verified Side and Site: Yes Verified Shot(s) with Parent(s)/Patient: Yes documented in this encounter Nursing Notes * Mariajose Higgins LPN - 04/04/2023 12:57 PM EDT Chief Complaint Patient presents with Follow Up Fatigue States he is very tired. documented in this encounter Plan of Treatment Upcoming Encounters Date Type Specialty Care Team Description 06/05/2023 Telemedicine Endocrinology Rober[facility]C [address] [facility] [id number] 06/06/2023 Office Visit Sleep Disorders Mi [place], [address] [place] [id number] 06/26/2023 Office Visit Dermatology Jenna Marie PA-C [address] [place] [phone] 08/06/2023 Office Visit Internal Medicine Ramonita Pisano MD [address] [place] [address] Scheduled Referrals Name Type Priority Associated Diagnoses Orde r Schedule COLONOSCOPY, GI REFERRAL OP Referral Within 30 days (routine) Special screening for malignant neoplasms, colon Ordered: 04/04/2023 ENDOCRINOLOGY REFERRAL OP Referral Within 30 days (routine) Type 1 diabetes mellitus with hemoglobin A1c goal of less than 7.0% (HCC) Ordered: 04/04/2023 DERMATOLOGY REFERRAL OP Referral Within 30 days (routine) Acne, unspecified acne type Skin cancer screening Ordered: 04/04/2023 Health Maintenance Due Date Last Done Comments *SPIROMETRY ONCE FOR ASTHMA-ADULT 08/26/2016 Cologuard 2019 Fecal Occult Blood Test 2019 Sigmoidoscopy 2019 DIABETES-EYE EXAM 09/15/2020 09/16/2019, , 09/08/2015, Additional history exists Depression Screening 05/12/2021 05/12/2020 Colonoscopy 06/10/2022 06/10/2012, 06/10/2012 Colorectal Cancer Screening 06/10/2022 Diabetic Foot Exam 05/10/2023 05/10/2022, 1 , [...] to 64 Years) Completed 05/10/2022, 07/14/2018, 12/06/2006 COVID-19 Vaccine Completed 06/22/2022, , 09/03/2020, Additional history exists Influenza Vaccine (FLU shot) Completed , 05/10/2022, 09/29/2021, Additional history exists GARDASIL-HPV IMMUNIZATION SERIES Aged Out No longer eligible based on patient's age to complete this topic MENINGOCOCCAL (MENACTRA/MENVEO) Aged Out No longer eligible based on patient's age to complete this topic documented as of this encounter Medical Devices Not on filedocumented as of this encounter Results * 25-HYDROXY VITAMIN D (04/04/2023 1:41 PM EDT) 25-Hydroxy Vitamin D 78 >19 ng/mL 04/05/2023 1:42 AM EDT [facility] [place] Blood Venous blood specimen / Unknown Venipuncture / Unknown 04/04/2023 1:41 PM EDT 04/04/2023 1:41 PM EDT Narrative [facility] - 04/05/2023 1:42 AM EDT Deficient: <20 ng/mL Insufficient: 20-29 ng/mL Recommended/Optimum:30-50 ng/mL Vitamin D intoxication is rare. If suspicious of Vitamin D toxicity, evaluation of serum Calcium and PTH is recommended. Ramonita Pisano MD LAB BLOOD ORDERABLES Performing Organization Address City/[facility]/ZIP Co de Phone Number LABORATORY [address] [address] * VITAMIN B12 (04/04/2023 1:41 PM EDT) Pathologist [facility] Vitamin B12 506 232 - 1,245 pg/mL 04/05/2023 1:42 AM EDT [facility] [place] Blood Venous blood specimen / Unknown Venipuncture / Unknown 04/04/2023 1:41 PM EDT 04/04/2023 1:41 PM EDT Ramonita Pisano MD LAB BLOOD ORDERABLES Performing Organization Address City/[facility]/ZIP Co de Phone Number LABORATORY [place] [address] [place] [address] * (ABNORMAL) HEMOGLOBIN A1C (04/04/2023 1:41 PM EDT) Hemoglobin A1C 8.1(H) 4.0 - 5.6 % 04/04/2023 9:28 PM EDT [facility] Comment:The use of HbA1c to monitor glycemic status is based on normal hemoglobin and HbA composition. This test should not be used in patients with abnormal hemoglobin that affects the half life of the red blood cell or the in vivo glycation rates. Estimated Average Glucose 186(H) <126 mg/dL 04/04/2023 9:28 PM EDT [facility] Blood Venous blood specimen / Unknown Venipuncture / Unknown 04/04/2023 1:41 PM EDT 04/04/2023 1:41 PM EDT Ramonita Pisano MD LAB BLOOD ORDERABLES [facility] [address] [place] [address] * TSH (04/04/2023 1:41 PM EDT) TSH 1.55 0.27 - 4.20 uIU/mL 04/05/2023 1:42 AM EDT LAB[facility]ATORY [facility] Blood Venous blood specimen / Unknown Venipuncture / Unknown 04/04/2023 1:41 PM EDT 04/04/2023 1:41 PM EDT Ramonita Pisano MD LAB BLOOD ORDERABLES Performing Organization Address City/[facility] Co de Phone Number LAB[facility]ATORY [facility] [address] [place] [address] documented in this encounter Visit Diagnoses Diagnosis Sleep walking and eating- Primary Sleep arousal disorder Type 1 diabetes mellitus with hemoglobin A1c goal of less than 7.0% (HCC) Need for prophylactic vaccination and inoculation against influenza Malaise and fatigue Other malaise and fatigue Special screening for malignant neoplasms, colon Bipolar II disorder (HCC) Other bipolar disorders Mild nonproliferative diabetic retinopathy of both eyes without macular edema associated with type 2 diabetes mellitus (HCC) 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HCC) Other specified polyglandular dysfunction Elevated hemoglobin (HCC) Other hemoglobinopathies Acquired hypothyroidism Unspecified hypothyroidism Celiac disease 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 hyperactivity 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 mention of hyperactivity Mild persistent asthma without complication Unspecified asthma Allergic sinusitis Allergic rhinitis, cause unspecified History of kidney stones Personal history of urinary calculi 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 [place] [address] PCP - General 02/25/09 documented as of this encounter
--- OUTSIDE RECORDS SUMMARY | 2023-10-04 08:34 | External Medical Summary | Summary of Care ---
Author Name Unknown Organization [facility] Address [address] [place] [address] Phone [phone] Care Team Providers Care Health Professional Name Role Phone Ramonita Pisano MD Primary Care Provider Reason for Visit * Reason Onset Date Comments Referral 04/08/2023 [facility] Encounter Details Date Type Department Care Team Description 04/08/2023 New Patient Triage (INSURANCE ACCOUNT EXECUTIVE USE ONLY) Endocrinology, [place] [address] [place] [address] Rita Bolton MD [address] [place] [address] Referral ([facility]) Allergies Active Allergy Reactions Severity Noted Date Comments Gluten Diarrhea Medium 07/26/2010 History of Celiacs disease documented as of this encounter (statuses as of 04/08/2023) Medications Medication Sig Dispensed Refills Start Date [...] Active BUPROPION HCL (XL) 300 MG PO [id number]:B ipolar disorder (HCC) 1 TABLET DAILY 0 [...] goal of less than 7.0% ([facility]) INJECT 70 UNITS EVERY DAY [...] goal of less than 7.0% ([facility]) USE TO TEST BLOOD SUGAR [...] as of this encounter (statuses as of 04/08/2023) Active Problems Problem Noted Date Sleep walking [...] as of this encounter (statuses as of 04/08/2023) Resolved Problems Problem Noted Date Resolved Date [...] as of this encounter (statuses as of 04/08/2023) Immunizations Name Administration Dates Next Due COVID-19 mRNA, LNP-s, No Pre serve, 2-Dose Series (Moderna) 09/03/2020,07/31/2020 Covid-19, Mrna, Lnp-s, Pf, B ivalent, 30 Mcg, IM, 12 yrs and above (Pfizer) 06/22/2022 Hepatitis B, 20+ yrs 01/15/2017,08/14/19 17,07/10/2016,09/25 Pneumococcal Conjugate Vacci ne, 20-valent ([id number]) 05/10/2022 Pneumococcal Polysaccharide PPV23 (Pneumovax) 07/14/2018,12/06/2006 SEASONAL [...] on file documented as of this encounter Progress Notes * Rita Bolton MD - 04/08/2023 11:50 AM EDT Does patient need to be seen?: Yes Modality: First available Urgency: Within 30 days (routine) * Justa Flores RN - 04/08/2023 9:13 AM EDT New Patient Triage What is the diagnosis/reason for referral?: Type 1 diabetes mellitus with hemoglobin A1c goal of less than 7.0% (HCC) [E10.9] Enter order ID here: [id number] Specialty specific documentation: Endocrinology Uncontrolled nakul night time due to eating at night Next Appointment: 06/05/2023 Roberta Nicole PA-C Component Latest Ref Rng 04/04/2023 25-Hydroxy Vitamin D >19 ng/mL 78 Component Latest Ref Rng 04/04/2023 Vitamin B12 232 - 1,245 pg/mL 506 Component Latest Ref Rng 04/04/2023 WBC 4.00 - 10.80 K/uL 7.17 Neutrophils % 40.0 - 75.0 % 64.0 Lymphocytes % 18.0 - 42.0 % 24.7 Monocytes % 1.0 - 11.0 % 8.6 Eosinophils % 0.0 - 6.0 % 1.4 Basophils % 0.0 - 2.0 % 1.0 Immature Granulocytes % 0.0 - 2.0 % 0.3 Absolute Neutrophils 1.80 - 7.70 K/uL 4.59 Absolute Lymphocytes 1.00 - 4.80 K/ul 1.77 Absolute Monocytes 0.00 - 1.10 K/uL 0.62 Absolute Eosinophils 0.00 - 0.70 K/uL 0.10 Absolute Basophils 0.00 - 0.20 K/uL 0.07 Absolute Immature Granulocytes 0.00 - 0.20 K/uL 0.02 WBC 4.00 - 10.80 K/uL 7.17 RBC 4.50 - 5.25 M/uL 5.69 HGB 14.0 - 16.8 g/dL 17.2 (H) HCT 40.0 - 48.4 % 53.2 (H) MCV 82.0 - 99.5 fL 93.5 MCH 27.0 - 34.0 pg 30.2 MCHC 32.0 - 36.0 g/dL 32.3 RDW 11.5 - 15.5 % 11.3 PLT 140 - 400 K/uL 350 MPV 6.6 - 11.1 fL 10.1 nRBCs <=0 /100 WBCs 0 (H) High Component Latest Ref Rng 04/04/2023 Hemoglobin A1C 4.0 - 5.6 % 8.1 (H) Estimated Average Glucose <126 mg/dL 186 (H) (H) High Component Latest Ref Rn 04/04/2023 TSH 0.27 - 4.20 uIU/mL 1.55 Albuterol Sulfate HFA 108 (90 Base) MCG/ACT Inhalation Aerosol Solution Doxycycline Hyclate 100 MG Oral Capsule Fluticasone-Salmeterol 250-50 MCG/ACT Inhalation Aerosol Powder Breath Activated (Advair Diskus) OneTouch Ultra In Vitro Strip (Glucose Blood) Benzonatate 100 MG Oral Capsule (Tessalon Perles) Levothyroxine Sodium 100 MCG Oral Tablet (Levoxyl) Insulin Aspart 100 UNIT/ML Injection Solution (NovoLOG) Omeprazole 20 MG Oral Capsule Delayed Release (PriLOSEC) Atorvastatin Calcium 20 MG Oral Tablet (Lipitor) Fluticasone-Salmeterol 250-50 MCG/DOSE Inhalation Aerosol Powder Breath Activated (Advair Diskus) Glucagon Emergency 1 MG Injection Kit Ketoconazole 2 % External Shampoo (Nizoral) Selenium Sulfide 2.5 % External Lotion lamoTRIgine (LAMICTAL) 200 MG Tablet hydrocortisone 2.5 % cream tacrolimus (PROTOPIC) 0.1 % ointment Clindamycin Phos-Benzoyl Perox 1-5 % gel metronidazole (METROGEL) 0.75 % gel LORAzepam (ATIVAN) 0.5 MG Tablet Insulin Infusion Pump Supplies MISC fexofenadine (KHAI) 180 MG Tablet fluticasone (FLONASE) 50 MCG/ACT nasal spray TEMAZEPAM 30 MG PO CAPS BUPROPION HCL (XL) 300 MG PO TB24 AMPHETAMINE SALT COMBO 10 MG PO TABS ONETOUCH ULTRASOFT LANCETS MISC SEROQUEL 100 MG PO TABS SEROQUEL 50 MG PO TABS albuterol (VENTOLIN HFA/PROVENTIL HFA) inhaler Albuterol Sulfate (Proventil) (2.5 MG/3ML) 0.083% inhalation solution 2.5 mg Per PN 04/04/2023 47 YOF with PMH of DM on insulin pump, hypothyroidism, asthma/allergy, bipolar, SLE, ADD, celiac diseases, presents here for recheck. Acute concern :- -ongoing fatigue . Snores intermittently per , times erratic breathing -nighttime walking up with restless leg/cramps and usually eats when his sugar becomes the worst -more acne in back documented in this encounter Plan of Treatment Upcoming Encounters Date Type Specialty Care Team Description 06/05/2023 Telemedicine Endocrinology Roberta Nicole PA-C [address] [place] [address] 06/06/2023 Office Visit Sleep Disorders Mi Rankin, DO [address] [place] [address] 06/26/2023 Office Visit Dermatology Jenna Marie PA-C [address] [place] [phone] 08/06/2023 Office Visit Internal Medicine Ramonita Pisano MD [address] [place] [address] Health Maintenance Due Date Last Done Comments [...] 05/01/2021, Additional history exists GFR 12/22/2023 12/21/2022, 11/0 09/2021, 09/29/2021, Additional history exists TSH 04/04/2024 [...] filedocumented as of this encounter Care Teams Health Professional Relationship Specialty Start Date End Date Ramonita Pisano MD [address] [place] [address], [place] [address] PCP - General 02/25/09 documented as of this encounter
--- OUTSIDE RECORDS SUMMARY | 2023-10-04 08:34 | External Medical Summary | Summary of Care ---
Author Name Unknown Organization [facility] Address [address] [place] [address] Phone [phone] Care Team Providers Care Traffic Controller Cable Name Role Phone Ramonita Pisano MD Primary Care Provider [phone] Reason for Visit * Reason Onset Date Comments Referral 04/08/2023 [facility] Encounter Details Date Type Department Care Team Description 04/08/2023 New Patient Triage (ACTIVITIES VOLUNTEER USE ONLY) Endocrinology, [place] [address] [place] [address] Rita Bolton MD [address] [place] [address] Referral (TTFC) Allergies Active Allergy [...] Active BUPROPION HCL (XL) 300 MG PO [id number]:B ipolar disorder (HCC) 1 TABLET DAILY 0 [...] hemoglobin A1c goal of less than 7.0% ([facility]) INJECT 70 UNITS EVERY DAY [...] hemoglobin A1c goal of less than 7.0% ([facility]) USE TO TEST BLOOD SUGAR [...] 01/15/2017,08/14/19 17,07/10/2016,09/25 Pneumococcal Conjugate Vacci ne, 20-valent ([id number]) 05/10/2022 Pneumococcal Polysaccharide PPV23 (Pneumovax) 07/14/2018,12/06/2006 SEASONAL [...] as of this encounter Progress Notes * Justa Flores RN - 04/08/2023 9:13 AM EDT New Patient Triage What is the diagnosis/reason for referral?: Type 1 diabetes mellitus with hemoglobin A1c goal of less than 7.0% (HCC) [E10.9] Enter order ID here: [id number] Specialty specific documentation: Endocrinology Uncontrolled nakul night time due to eating at night Next Appointment: 06/05/2023 Roberta Nicole PA-C Component Latest Ref Rng 04/04/2023 25-Hydroxy Vitamin D >19 ng/mL 78 Component Latest Ref Rng 04/04/2023 Vitamin B12 232 - 1,245 pg/mL 506 Component Latest Ref [facility] 04/04/2023 WBC 4.00 - 10.80 K/uL 7.17 [...] WBCs 0 (H) High Component Latest Ref [facility] 04/04/2023 Hemoglobin A1C 4.0 - 5.6 % 8.1 (H) Estimated Average Glucose <126 mg/dL 186 (H) (H) High Component Latest Ref [facility] 04/04/2023 TSH 0.27 - 4.20 uIU/mL 1.55 [...] Telemedicine Endocrinology Roberta Nicole PA-C [address] [place] [address] 06/06/2023 Office Visit Sleep Disorders Mi Rankin, DO [address] [place] [address] 06/26/2023 Office Visit Dermatology Jenna Marie PA-C [address] [place] [phone] 08/06/2023 Office Visit Internal Medicine Ramonita Pisano MD [address] [place] [address] Health Maintenance Due Date Last Done Comments [...] filedocumented as of this encounter Care Teams Traffic Controller Cable Relationship Specialty Start Date End Date Ramonita Pisano MD [address] [facility] [place] [address] PCP - General 02/25/09 documented as of this encounter
--- OUTSIDE RECORDS SUMMARY | 2023-10-04 08:34 | External Medical Summary | Summary of Care ---
Author Name Unknown Organization [facility] Address [address] [place] [address] Phone [phone] Care Team Providers Care Clock Maker Name Role Phone Ramonita Pisano MD Primary Care Provider [phone] Reason for Visit * Reason Onset Date Comments Appointment 04/08/2023 colonoscopy Encounter Details Date Type Department Care Team Description 04/08/2023 Telephone General Internal Medicine [facility] [address] [place] [address] Ramonita Pisano MD [address] [place] [address] Appointment (colonoscopy) Allergies Active Allergy Reactions Severity [...] Active BUPROPION HCL (XL) 300 MG PO [id number]:B ipolar disorder (HCC) 1 TABLET DAILY 0 [...] goal of less than 7.0% ([facility]) INJECT 70 UNITS EVERY DAY PER INSULIN [...] goal of less than 7.0% ([facility]) USE TO TEST BLOOD SUGAR UP TO [...] 01/15/2017,08/14/19 17,07/10/2016,09/25 Pneumococcal Conjugate Vacci ne, 20-valent ([id number]) 05/10/2022 Pneumococcal Polysaccharide PPV23 (Pneumovax) 07/14/2018,12/06/2006 SEASONAL [...] Name: Tavon Vasquez Birthdate: 1975 Patient's Address: [address] [place] [address] Home: Work: Patient Preference: Referral ID: [id number] Referred To: COLONOSCOPY, GI REFERRAL OP Watcher [employer]: Provider Specialty: Gastroenterology Priority: Within 30 days (routine) Visit Coverage: achvr [facility] Primary Payor: [employer] [place] [employer] Appointment Info: Date: Time: Referral Type: Ancillary Services [] Expiration Date: Number of Visits Requested: 999 Associated Diagnosis: Special screening for malignant neoplasms, colon (Z12.11) Problem/Desired Service from Watcher [employer]: ALERT: Do not order for pediatric patients (18 years or younger). Cancel off screen and order PEDS GASTROENTEROLOGY CONSULT (Type: 1 visit only-Evaluate and Treat) The following Pt. Instructions are available: - Gastro Colonoscopy Prep Instructions [72922] - Gastro Colonoscopy Prep Instructions (South [place]ese Version) [[id number]] Go to the Pt. Instructions section within [...] Telemedicine [facility]ocrinology [facility]C [address] [facility] [id number] 06/06/2023 Office Visit Sleep Disorders Mi Rankin DO [address] [place] [address] 06/26/2023 Office Visit Dermatology Jenna Marie PA-C [address] [facility] [place] [phone] 08/06/2023 Office Visit Internal Medicine Ramonita Pisano MD [address] [facility] [place] [address] Health Maintenance Due Date Last Done Comments [...] filedocumented as of this encounter Care Teams Clock Maker Relationship Specialty Start Date End Date Ramonita Pisano MD [address] [place] [address] PCP - General 02/25/09 documented as of this encounter
--- OUTSIDE RECORDS SUMMARY | 2023-10-04 08:34 | External Medical Summary | Summary of Care ---
Author Name Unknown Organization [facility] Address [address] [place] [address] Phone [phone] Care Team Providers Care Circus Supervisor Name Role Phone Ramonita Pisano MD Primary Care Provider [phone] Reason for Visit * Reason Onset Date Comments Referral 04/08/2023 [facility] Encounter Details Date Type Department Care Team Description 04/08/2023 New Patient Triage (BULLDOGGER USE ONLY) Endocrinology, [place] [address] [place] [address] Rita Bolton MD [address] [place] [address] Referral (TTFC) Allergies Active Allergy [...] Active BUPROPION HCL (XL) 300 MG PO [id number]:B ipolar disorder (HCC) 1 TABLET DAILY 0 [...] hemoglobin A1c goal of less than 7.0% ([facility]) INJECT 70 UNITS EVERY [...] hemoglobin A1c goal of less than 7.0% ([facility]) USE TO TEST BLOOD [...] 01/15/2017,08/14/19 17,07/10/2016,09/25 Pneumococcal Conjugate Vacci ne, 20-valent ([id number]) 05/10/2022 Pneumococcal Polysaccharide PPV23 (Pneumovax) 07/14/2018,12/06/2006 SEASONAL [...] as of this encounter Progress Notes * Jutsa Flores RN - 04/08/2023 9:13 AM EDT New Patient Triage What is the diagnosis/reason for referral?: Type 1 diabetes mellitus with hemoglobin A1c goal of less than 7.0% (HCC) [E10.9] Enter order ID here: [id number] Specialty specific documentation: Endocrinology Uncontrolled nakul night time due to eating at night Next Appointment: 06/05/2023 Roberta Nicole PA-C Component Latest Ref Rng 04/04/2023 25-Hydroxy Vitamin D >19 ng/mL 78 Component Latest Ref Rng 04/04/2023 Vitamin B12 232 - 1,245 pg/mL 506 Component Latest Ref [facility] 04/04/2023 WBC 4.00 - 10.80 K/uL 7.17 [...] WBCs 0 (H) High Component Latest Ref [facility] 04/04/2023 Hemoglobin A1C 4.0 - 5.6 % 8.1 (H) Estimated Average Glucose <126 mg/dL 186 (H) (H) High Component Latest Ref [facility] 04/04/2023 TSH 0.27 - 4.20 uIU/mL 1.55 [...] Telemedicine Endocrinology Roberta Nicole PA-C [address] [place] [address] 06/06/2023 Office Visit Sleep Disorders Mi Rankin, DO [address] [place] [address] 06/26/2023 Office Visit Dermatology Jenna Marie PA-C [address] [place] [phone] 08/06/2023 Office Visit Internal Medicine Ramonita Pisano MD [address] [place] [address] Health Maintenance Due Date Last Done Comments [...] filedocumented as of this encounter Care Teams Circus Supervisor Relationship Specialty Start Date End Date Ramonita Pisano MD [address] [facility] [place] [address] PCP - General 02/25/09 documented as of this encounter
--- OUTSIDE RECORDS SUMMARY | 2023-10-04 08:34 | External Medical Summary | Summary of Care ---
Author Name Unknown Organization [facility] Address [address] [place] [address] Phone [phone] Care Team Providers Care Spikemaking Supervisor Name Role Phone Ramonita Pisano MD Primary Care Provider [phone] Reason for Visit * Reason Onset Date Comments Referral 04/08/2023 [facility] Encounter Details Date Type Department Care Team Description 04/08/2023 New Patient Triage (COATER BRAKE LININGS USE ONLY) Endocrinology, [place] [address] [place] [address] Rita Bolton MD [address] [place] [address] Referral (TTFC) Allergies Active Allergy [...] Active BUPROPION HCL (XL) 300 MG PO [id number]:B ipolar disorder (HCC) 1 TABLET DAILY 0 [...] than 7.0% ([facility]) INJECT 70 UNITS EVERY DAY PER INSULIN [...] than 7.0% ([facility]) USE TO TEST BLOOD SUGAR UP TO [...] 01/15/2017,08/14/19 17,07/10/2016,09/25 Pneumococcal Conjugate Vacci ne, 20-valent ([id number]) 05/10/2022 Pneumococcal Polysaccharide PPV23 (Pneumovax) 07/14/2018,12/06/2006 SEASONAL [...] 7.0% (HCC) [E10.9] Enter order ID here: [id number] Specialty specific documentation: Endocrinology Uncontrolled nakul night [...] becomes the worst -more acne in back Discussed care plan with patient or proxy?: Yes Communicated with patient on Date (mm/dd/yyyy): 04/08/2023 at Time ([facility] 1210 Justa Flores, RN documented in this encounter Plan of Treatment Upcoming Encounters Date Type Specialty Care Team Description 06/05/2023 Telemedicine Endocrinology Roberta Nicole, [place] [address] [place] [facility] [place] [address] 06/06/2023 Office Visit Sleep Disorders Mi Rankin, DO [address] [place] [address] 06/26/2023 Office Visit Dermatology Jenna Marie PA-C [address] [place] [phone] 08/06/2023 Office Visit Internal Medicine Ramonita Pisano MD [address] [place] [address] Health Maintenance Due Date Last Done Comments [...] filedocumented as of this encounter Care Teams Spikemaking Supervisor Relationship Specialty Start Date End Date Ramonita Pisano MD [address] [place] [address] PCP - General 02/25/09 documented as of this encounter
--- NOTE | 2023-10-04 08:38 | Urology Consultation ---
Date of Consultation October 04, 2023 Assessment & Plan (1) Right ureteral stone: (2) Hydronephrosis: (3) Renal colic: 48 yo/M admitted for right renal colic secondary to an obstructing right mid to distal ureteral stone with hydronephrosis. Patient is afebrile and hemodynamically stable Labs on arrival showed normal creatinine and no leukocytosis, no new labs at time of visit Urinalysis showed blood, trace LE, 5-10 WBC, negative for bacteria He is on empiric ceftriaxone CT showed an obstructing mid to distal right ureteral stone measuring 5 x 6 x 10 mm with mild hydronephrosis Discussed options for stone management including trial of passage/discharge to home with f/u to discuss outpatient surgery if pain is controlled We discussed surgical intervention today with right ureteral stent placement and possible stone treatment depending on findings Discussed possible need for stone treatment at a later date After discussion, he wishes to proceed with surgery today Ureteral stents were discussed in detail Plan: Proceed with cystoscopy, right ureteroscopy, right ureteral stent placement and possible stone treatment Risks and benefits to be reviewed with patient by Dr. Bowens Keep NPO for procedure Continue supportive care Continue with scheduled ceftriaxone preoperatively Attending note: Patient independently assessed, examined, interviewed, and evaluated. Agree with note as above. Patient's vitals and labs were all reviewed. Pertinent values in the HPI and plan section. Imaging was reviewed interpreted by myself. Agree with read. Vitals were reviewed. Discussed findings extensively with patient and family. Reviewed with nurse practitioner as well as consulting physicians/team. Patient's complicated medical and surgical history was reviewed and summarized above. Patient's surgical, medical, social, and family history were all reviewed with pertinent values as above. Discussed patient's current diagnosis as well as concerns and issues. Reviewed different options moving forward. Discussed potential risks and benefits as well as possible options and concerns. Reviewed potential surgical options and interventions. Discussed potential issues and concerns related to intervention. Risk and benefits were discussed extensively with patient and any available family. Discussed potential risks related to anesthesia. Discussed risks of bleeding infection and injury. Risks and benefits discussed at length for procedure. These include bleeding, infection, injury to surrounding tissues or organs, and risks associated with anesthesia. Patient states understanding and agrees to proceed. Will sign consent and proceed. Patient's creatinine was 0.8. White count 10.42. Hemoglobin 16.7. Imaging was reviewed interpreted by myself. Does appear to have large obstructing stone in the mid to distal ureter. Possible duplicated system with what appears to be bilateral ureters hydronephrotic down to the crossing of the iliac vessels. Difficult to determine if it does collect into 1 single ureter near where the stone is obstructing. Plan for cystoscopy with possible right ureteroscopy laser lithotripsy stone basket extraction and stent. History of Present Illness Attending Physician: Rosa Whitley MD History of Present Illness This is a 48-year-old male with past medical history of type 1 diabetes, celiac disease and nephrolithiasis who presented to the emergency department on 10/03/2023 for evaluation of right flank pain. He was afebrile and hemodynamically stable on arrival. Labs showed creatinine 0.8, WBC 10.42, hemoglobin 16.7. Urinalysis showed 2+ glucose, 2+ blood, trace LE, 5-10 WBC, 5-10 RBC, 20-30 epithelial cells and negative for bacteria; calcium oxalate crystals in urine mucus noted. CT abdomen pelvis notable for mild right hydronephrosis secondary to a 5 x 6 x 10 mm distal right ureteral calculus. He was treated with IV fluids, ketorolac and morphine in the emergency department. He was admitted to the medicine service for right renal colic. Urology is consulted for renal colic, right ureteral stone. Patient seen and examined at bedside this morning. He is awake, alert and resting in bed. He reports pain has improved since arrival. Voiding spontaneously. Notes some dysuria and urinary frequency. No nausea or vomiting. No fever or chills. He is NPO. Reports prior history of kidney stones in 2005 and 2019. He required surgery for stone in 2005, passed stone spontaneously in 2019. Allergies Allergy/AdvReac Type Severity Reaction Status Date / Time gluten Allergy Unknown Celiac Verified 10/03/23 23:52 Disease Home Medications Medication Instructions Recorded Confirmed Type bupropion HCl 300 mg 24 hr tablet, 300 mg PO QAM 09/18/18 10/03/23 History extended release (Wellbutrin XL) dextroamphetamine-amphetamine 20 20 mg PO QAM 09/18/18 10/03/23 History mg tablet (Adderall) levothyroxine 100 mcg tablet 100 mcg PO DAILY 09/18/18 10/04/23 History (Synthroid) lorazepam 0.5 mg tablet (Ativan) 0.5 mg PO DAILY PRN Anxiety 09/18/18 10/04/23 History quetiapine 150 mg tablet,extended 150 mg PO HS 09/18/18 10/04/23 History release 24 hr (Seroquel XR) insulin aspart U-100 100 unit/mL 70 unit continuous subcutaneous 10/03/23 10/03/23 History subcutaneous solution infusion DAILY omega-3 fatty acids 1,000 mg 1,000 mg PO BID 10/03/23 10/04/23 History capsule albuterol sulfate 90 mcg/actuation 2 puff inhalation Q4H PRN Wheezing 10/04/23 10/04/23 History aerosol inhaler atorvastatin 20 mg tablet 20 mg PO QAM 10/04/23 10/04/23 History benzonatate 100 mg capsule 100 mg PO TID PRN Cough 10/04/23 10/04/23 History fexofenadine 180 mg tablet 180 mg PO DAILY PRN Allergy 10/04/23 10/04/23 History Symptoms fluticasone 250 mcg-salmeterol 50 1 inh inhalation BID 10/04/23 10/04/23 History mcg/dose blistr powdr for inhalation fluticasone propionate 50 2 spray intranasal DAILY 10/04/23 10/04/23 History mcg/actuation nasal spray,suspension ketoconazole 2 % shampoo 1 applic topical .2XW 10/04/23 10/04/23 History lamotrigine 200 mg tablet 200 mg PO DAILY 10/04/23 10/04/23 History omeprazole 20 mg capsule,delayed 20 mg PO DAILYBB 10/04/23 10/04/23 History release selenium sulfide 2.5 % lotion 1 applic topical DAILY 10/04/23 10/04/23 History sildenafil 50 mg tablet 50 mg PO .UD PRN Sexual Activity 10/04/23 10/04/23 History temazepam 30 mg capsule 30 mg PO HS PRN Insomnia 10/04/23 10/04/23 History Patient History Medical History (Updated 10/04/23 @ 11:18 by Gabi Flores RN) History of kidney stones Asthma Celiac disease Kidney stone Type 1 diabetes mellitus Surgical History (Updated 10/04/23 @ 11:18 by Gabi Flores RN) History of foot surgery left foot History of colonoscopy Family History Other No significant family history Social History Smoking Status: Never smoker Hx Alcohol Use: Yes Alcohol type: beer and hard liquor Hx Substance Use: No Preferred Language: Divehi Communication Ability: Effective Mica Sizer Required: No Beliefs That Will Affect Care: None Current Living Situation: Spouse Feels Safe at Home: Yes Safety Concerns: Feels Safe At This Time Assistive Devices: Other Review of Systems Review of Systems: All systems reviewed & are unremarkable except as noted in HPI & below Physical Exam Constitutional: well developed and well nourished; no acute distress Respiratory: normal respiratory effort; no respiratory distress and no labored breathing Gastrointestinal (Abdomen): Inspection/Auscultation: abdomen normal to inspection Musculoskeletal: Head/Neck/Chest: normocephalic Neurologic: moves all extremities and awake Psychiatric: Orientation: alert and oriented x 3 Results & Data Vital Signs (Past 12 Hours) Vital Signs Temp Pulse Pulse Resp BP BP Pulse Ox 10/04/23 07:09 36.4 C L 63 18 109/65 95 10/04/23 01:55 36.6 C 69 18 148/94 H 99 10/04/23 01:00 72 16 128/80 98 10/04/23 00:45 62 O2 Del Method 10/04/23 07:09 Room Air 10/04/23 01:55 Room Air 10/04/23 01:00 Room Air 10/04/23 00:45 PG Care Time/CCT Total # of Minutes Spent Total Time Spent with Patient: Total time spent is greater than 50% in coordination of care (as documented) at patient's floor/unit and/or counseling patient: Coding Level of Care Code 95608 IN/OBS CONSULT LVL 3,45M Diagnoses Right ureteral stone N20.1 Hydronephrosis N13.30 Hydronephrosis type: unspecified Renal colic N23 (2) Hydronephrosis Hydronephrosis type: unspecified Qualified Code(s): N13.30 - Unspecified hydronephrosis
[2023-10-04] MEDS: TAMSULOSIN HCL 0.4 MG CAP PO SCH (09:13)
[2023-10-04] MEDS: ATORVASTATIN 20 MG TAB PO SCH (09:13)
[2023-10-04] MEDS: DEXTROAMPHETAMINE/AMPHETAMINE IR 20 MG TAB PO SCH (09:13)
[2023-10-04] MEDS: SELENIUM SULFIDE 2.5% LOTION 120 ML BTL TOP SCH (09:13)
[2023-10-04] MEDS: FLUTICASONE/VILANTEROL 200/25MCG 14 PUFFS/INHALER INH SCH (09:13)
[2023-10-04] MEDS: lamoTRIgine 100 MG TAB PO SCH (09:14)
[2023-10-04] MEDS: buPROPion XL 300 MG TABCR PO SCH (09:14)
[2023-10-04] MEDS: FLUTICASONE PROPIONATE NA SPR 16 GM BTL SCH (09:15)
--- NOTE | 2023-10-04 09:46 | Anesthesiology Consultation ---
Date of Service October 04, 2023 Assessment & Plan (1) Encounter for pre-operative examination: Chart Review Chart Review: Acceptable Risk for Surgery History Surgery Operation Date: 10/04/23 07:00 Proposed Procedures p Cystoscopy, Right Ureteroscopy, Right Stent, Possible Stone Treatment - Alfonso Bowens, DO Height/Weight Height: 5 ft 7 in Weight: 79.5 kg Allergies Allergy/AdvReac Type Severity Reaction Status Date / Time gluten Allergy Unknown Celiac Verified 10/03/23 23:52 Disease Medications Home Medications Medication Instructions Recorded Confirmed Last Taken bupropion HCl 300 mg 24 hr tablet, 300 mg PO QAM 09/18/18 10/03/23 Unknown extended release (Wellbutrin XL) dextroamphetamine-amphetamine 20 20 mg PO QAM 09/18/18 10/03/23 Unknown mg tablet (Adderall) levothyroxine 100 mcg tablet 100 mcg PO DAILY 09/18/18 10/04/23 Unknown (Synthroid) lorazepam 0.5 mg tablet (Ativan) 0.5 mg PO DAILY PRN Anxiety 09/18/18 10/04/23 Unknown quetiapine 150 mg tablet,extended 150 mg PO HS 09/18/18 10/04/23 Unknown release 24 hr (Seroquel XR) insulin aspart U-100 100 unit/mL 70 unit continuous subcutaneous 10/03/23 10/03/23 Unknown subcutaneous solution infusion DAILY omega-3 fatty acids 1,000 mg 1,000 mg PO BID 10/03/23 10/04/23 09/19/23 capsule albuterol sulfate 90 mcg/actuation 2 puff inhalation Q4H PRN Wheezing 10/04/23 10/04/23 Unknown aerosol inhaler atorvastatin 20 mg tablet 20 mg PO QAM 10/04/23 10/04/23 Unknown benzonatate 100 mg capsule 100 mg PO TID PRN Cough 10/04/23 10/04/23 Unknown fexofenadine 180 mg tablet 180 mg PO DAILY PRN Allergy 10/04/23 10/04/23 Unknown Symptoms fluticasone 250 mcg-salmeterol 50 1 inh inhalation BID 10/04/23 10/04/23 Unknown mcg/dose blistr powdr for inhalation fluticasone propionate 50 2 spray intranasal DAILY 10/04/23 10/04/23 Unknown mcg/actuation nasal spray,suspension ketoconazole 2 % shampoo 1 applic topical .2XW 10/04/23 10/04/23 Unknown lamotrigine 200 mg tablet 200 mg PO DAILY 10/04/23 10/04/23 Unknown omeprazole 20 mg capsule,delayed 20 mg PO DAILYBB 10/04/23 10/04/23 Unknown release selenium sulfide 2.5 % lotion 1 applic topical DAILY 10/04/23 10/04/23 Unknown sildenafil 50 mg tablet 50 mg PO .UD PRN Sexual Activity 10/04/23 10/04/23 Unknown temazepam 30 mg capsule 30 mg PO HS PRN Insomnia 10/04/23 10/04/23 Unknown Active Medications Generic Name Dose Route Start Last Admin Trade Name Freq PRN Reason Stop Dose Admin Acetaminophen 650 mg 10/04/23 01:54 10/04/23 07:23 Acetaminophen 325 Mg Tab PO 11/03/23 01:53 650 mg Q4H PRN Administration pain/fever Amphetamine/Dextroamphetamine 20 mg 10/04/23 09:00 10/04/23 09:13 Dextroamphetamine/Amphetamine Ir 20 Mg Tab PO 10/18/23 08:59 20 mg BID BRAYDEN Administration Atorvastatin Calcium 20 mg 10/04/23 09:00 10/04/23 09:13 Atorvastatin 20 Mg Tab PO 11/03/23 08:59 20 mg QAM BRAYDEN Administration Bupropion HCl 300 mg 10/04/23 09:00 10/04/23 09:14 Bupropion Xl 300 Mg Tabcr PO 11/03/23 08:59 300 mg QAM BRAYDEN Administration Dextrose 25 - 50 ml 10/04/23 01:54 10/04/23 02:23 Dextrose 50% 50 Ml Syringe IV 11/03/23 01:53 25 ml UD PRN Administration Hypoglycemia Protocol Protocol Fluticasone Propionate 2 sprays 10/04/23 09:00 10/04/23 09:15 Fluticasone Propionate Na Spr 16 Gm Btl NA 11/03/23 08:59 2 sprays DAILY BRAYDEN Administration Fluticasone/Vilanterol 1 puffs 10/04/23 09:00 10/04/23 09:13 Fluticasone/Vilanterol 200/25mcg 14 Puffs/Inhaler INH 11/03/23 08:59 1 puffs DAILY BRAYDEN Administration Dextrose/Sodium Chloride 1,000 mls @ 125 mls/hr 10/04/23 02:30 10/04/23 02:33 D5w And Nss IV 11/03/23 02:29 125 mls/hr .Q8H BRAYDEN Administration Insulin Aspart 1 each 10/04/23 07:45 10/04/23 08:06 Insulin, Rapid-Acting Pump N/A 11/03/23 07:44 1 each Q4H BRAYDEN Administration Protocol Lamotrigine 200 mg 10/04/23 09:00 10/04/23 09:14 Lamotrigine 100 Mg Tab PO 11/03/23 08:59 200 mg DAILY BRAYDEN Administration Protocol Levothyroxine Sodium 100 mcg 10/04/23 06:30 10/04/23 06:09 Levothyroxine Sodium 100 Mcg Tablet PO 11/03/23 06:29 100 mcg DAILYBB BRAYDEN Administration Miscellaneous 1 each 10/04/23 08:00 10/04/23 09:15 Ketoconazole 2 % Shampoo - Order Awaiting Action N/A 11/03/23 07:59 Not Given QS BRAYDEN Morphine Sulfate 3 mg 10/04/23 01:54 10/04/23 08:11 Morphine Sulfate 4 Mg/Ml 1 Ml Carp\Vial IV 10/18/23 01:53 3 mg Q4H PRN Administration Mod-Sev Pain (Scale 4-10) Pantoprazole Sodium 40 mg 10/04/23 06:30 10/04/23 06:09 Pantoprazole 40 Mg Tab PO 11/03/23 06:29 40 mg DAILYBB BRAYDEN Administration Selenium Sulfide 1 appln 10/04/23 09:00 10/04/23 09:13 Selenium Sulfide 2.5% Lotion 120 Ml Btl TOP 11/03/23 08:59 1 appln DAILY BRAYDEN Administration Tamsulosin HCl 0.4 mg 10/04/23 09:00 10/04/23 09:13 Tamsulosin Hcl 0.4 Mg Cap PO 11/03/23 08:59 0.4 mg QAM BRAYDEN Administration Past Medical History Medical History (Updated 10/04/23 @ 10:48 by Sergey Stark MD) Asthma Celiac disease Kidney stone Type 1 diabetes mellitus Past Family History Family History Other No significant family history Past Surgical History Surgical History (Updated 10/04/23 @ 10:48 by Sergey Stark MD) No pertinent past surgical history Social History Smoking Status: Never smoker Hx Alcohol Use: Yes Alcohol type: beer and hard liquor alcohol intake frequency: holidays/special occasions only Hx Substance Use: No Physical Exam Vital Signs Last Vital Signs Temp 36.4 C L 10/04/23 07:09 Pulse 63 10/04/23 07:09 Resp 18 10/04/23 07:09 BP 109/65 10/04/23 07:09 Pulse Ox 95 10/04/23 07:09 O2 Del Method Room Air 10/04/23 07:09 Testing Laboratory Results 10/03/23 20:37 10/03/23 20:37 Hemoglobin A1c 7.9 % (4.5-5.6) H 10/04/23 05:54 Urine Color Dark Yellow 10/03/23 21:50 Urine Appearance Clear (Clear) 10/03/23 21:50 Urine pH 5.5 (4.5-7.5) 10/03/23 21:50 Ur Specific [place] 1.029 (1.000-1.030) 10/03/23 21:50 Urine Protein Negative (Negative) 10/03/23 21:50 Urine Glucose (UA) 2+ (Negative) H 10/03/23 21:50 Urine Ketones Trace (Negative) H 10/03/23 21:50 Urine Nitrite Negative (Negative) 10/03/23 21:50 Ur Leukocyte Esterase Trace (Negative) H 10/03/23 21:50 Urine WBC (Auto) 5-10 /hpf (0-5) H 10/03/23 21:50 Urine RBC (Auto) 0-4 /hpf (0-4) 10/03/23 21:50 U Hyaline Cast (Auto) 1-5 /lpf (0-5) 10/03/23 21:50 U Epithel Cells (Auto) 5-10 /lpf (0-5) H 10/03/23 21:50 Urine Bacteria (Auto) Negative (Negative) 10/03/23 21:50 10/04/23 10/04/23 10/04/23 08:01 03:44 02:44 POC Glucose 146 H 135 H 145 H 10/04/23 01:39 POC Glucose 78
[2023-10-04] MEDS ORDERED: PROMETHAZINE HCL 6.25 MG in SODIUM CHLORIDE 0.9% 50 ML IV PRN (11:25)
[2023-10-04] MEDS ORDERED: ePHEDrine sulfate 50 MG/ML AMP IV PRN (11:25)
[2023-10-04] MEDS ORDERED: ATROPINE SULFATE 0.1 MG/ML 10ML SYR IV PRN (11:25)
[2023-10-04] MEDS ORDERED: HYDROmorphone INJ 1 MG/ML SYRINGE IV PRN (11:25)
[2023-10-04] MEDS: LACTATED RINGER'S 1,000 ML IV SCH (11:26)
[2023-10-04] MEDS ORDERED: fentaNYL citrate PF 100 MCG/2 ML VIAL ONE ×2 (11:36→13:28)
[2023-10-04] MEDS ORDERED: MIDAZOLAM HCL 1 MG/ML 2ML VIAL ONE ×2 (11:36→13:28)
[2023-10-04] MEDS ORDERED: LIDOCAINE 2% 2 ML VIAL/AMP(20MG/ML) INFIL ONE (11:39)
[2023-10-04] MEDS ORDERED: PROPOFOL IV EMULSION 10 MG/ML 20 ML VIAL IV ONE (11:39)
[2023-10-04] MEDS ORDERED: ePHEDrine sulfate 50 MG/5 ML SYR ONE (13:55)
[2023-10-04] MEDS ORDERED: ONDANSETRON INJ 2 MG/ML 2 ML VIAL ONE (13:55)
[2023-10-04] MEDS: DIATRIZOATE MEGLUMINE 30% 100ML VIAL INSTIL ONE (14:17)
--- NOTE | 2023-10-04 14:36 | Operative Report ---
[facility] Post Operative Report Pre & Post Diagnosis Operation Date: 10/04/23 07:00 Pre-Op Diagnosis: Right ureteral stone, Hydronephrosis, Renal colic Post-Op Diagnosis: Right ureteral stone, Hydronephrosis, Renal colic I identified the patient and participated in the time-out.: Yes Procedure Operation Date: 10/04/23 07:00 Actual Procedures p Cystoscopy with Right Retrograde Pyelogram, Right Ureteroscopy, Laser Lithotripsy, stone basket extraction, Right Stent placement- Alfonso Bowens DO Surgeon Alfonso Bowens, II, DO French Translator None Estimated Blood Loss 1 Findings Consistent with Post-Op Diagnosis Stone destroyed to dust and small fragments and larger fragments removed. 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 The more posterior ureter transverse up to the lower pole calyx is with the more superior going to the upper pole calyx's. Considerable hydronephrosis and hydroureter of the duplicated system. Specimens Stone Fragments Drains 4.8 Fr Multilength Anesthesia Type General Complications none Disposition Disposition: Recovery Room Indications Patient with bothersome stones. Risks and benefits discussed at length. Description of Procedure Patient was consented and brought back to the operating room. Patient was placed under anesthesia in the supine position and moved to the dorsal lithotomy position. Patient was prepped and draped in the regular sterile fashion. A time out was completed. A 30degree Cystoscope was placed into the bladder and the entire bladder was examined. The UO's were identified. The UO was cannulized with a catheter and a retrograde pyelogram was completed. A wire was then placed. The Rigid ureteroscope was taken into the ureter. The stone was identified. A laser fiber was selected and the stones were pulverized to dust and small fragments. The stone was found to be obstructing just distal to a junction between the duplicated system going to the upper and lower poles. Significant hydroureter and hydronephrosis was noted. The prostate was found to also be somewhat inflamed with some irritation at the bladder neck and the urethral meatus. Larger fragments were grasped and removed and sent for analysis. The entire area was once again examined. No residual large fragments or areas of concern were noted. The scope was slowly removed with the wire left in place. Contrast was placed through the scope for a pyelogram to assist in stent placement. The entire ureter was examined as the scope was slowly removed. No obstructions or other areas of concern were noted. With the wire in place, a 4.8 Fr Double J stent was placed. It was confirmed with fluoroscopy. With the stent in place, the bladder was emptied. The scope was removed. The patient was cleaned, aroused from anesthesia, and transferred to the pacu in stable condition having tolerated the procedure well with no complications. I was present and participated in all aspects of the procedure. The patient will be monitored in the PACU until transferred. Will plan to remove stent in approximately 1 to 2 weeks in the office. Patient will be admitted back to the floor and monitored likely with discharge once he is stabilized. I attest to the content of the Intraoperative Record and any orders documented therein. Any exceptions are noted below.
--- NOTE | 2023-10-04 15:03 | Anesthesiology Progress Note ---
Date of Service October 04, 2023 Anesthesia Post Procedure Vital Signs Vital Signs: Temp Pulse Pulse Pulse Resp BP BP 10/04/23 15:00 36.2 C L 88 19 10/04/23 14:50 84 15 10/04/23 14:40 98 H 17 10/04/23 14:34 36.1 C L 99 H 17 10/04/23 11:20 36.7 C 71 18 10/04/23 07:09 36.4 C L 63 18 10/04/23 01:55 36.6 C 69 18 10/04/23 01:00 72 16 128/80 10/04/23 00:45 62 10/03/23 20:38 80 10/03/23 20:36 82 16 10/03/23 20:23 36.5 C 91 H 16 128/95 BP Pulse Ox O2 Del Method O2 Flow Rate 10/04/23 15:00 129/74 97 Room Air 10/04/23 14:50 135/74 97 Room Air 10/04/23 14:40 138/80 97 Oxymask 5 10/04/23 14:34 127/70 100 Oxymask 5 10/04/23 11:20 116/69 96 Room Air 10/04/23 07:09 109/65 95 Room Air 10/04/23 01:55 148/94 H 99 Room Air 10/04/23 01:00 98 Room Air 10/04/23 00:45 10/03/23 20:38 10/03/23 20:36 96 Room Air 10/03/23 20:23 96 Room Air Pain Intensity Lower Abdomen: Pain Intensity: 4 Transfer of Care Handoff Completed per policy Notes Mental Status: alert / awake / arousable and participated in evaluation Nausea / Vomiting: adequately controlled Pain: adequately controlled Airway Patency, RR, SpO2: stable & adequate BP & HR: stable & adequate Hydration State: stable & adequate Anesthetic Complications: no major complications apparent and Pt Satisfied with anesthetic care
--- NOTE | 2023-10-04 16:05 | Communication Note ---
Date of Service: October 04, 2023 Patient evaluated post cystoscopy with stent placed in right ureter. Patient with some notable degree of pain. Agreeable to stay the evening and repeat labs in am and ensure pain controlled s/p procedure. Formal progress note to follow in am.
[2023-10-04] MEDS: ONDANSETRON INJ 2 MG/ML 2 ML VIAL IV PRN (17:13)
[2023-10-04] MEDS ORDERED: oxyCODONE/APAP 7.5/325MG TAB PO PRN (17:27)
[2023-10-04] MEDS: oxyCODONE HCL IR 5 MG TAB (IMMEDIATE RELEASE) PO STA (17:33)
[2023-10-04] MEDS ORDERED: PHENAZOPYRIDINE HCL 200 MG TAB PO PRN (18:28)
[2023-10-04] MEDS: KETOROLAC 30 MG/ML VIAL IV ONE (18:40)
[2023-10-04] MEDS: PHENAZOPYRIDINE HCL 200 MG TAB PO STA (19:40)
[2023-10-04] MEDS: cefTRIAXone SODIUM 1,000 MG in DEXTROSE 5 % MINI-B 50 ML IV SCH (22:40)
[2023-10-05] MEDS: DICLOFENAC SODIUM 25 MG TABDR PO PRN (10:09)
--- NOTE | 2023-10-05 11:25 | Discharge Summary ---
Discharge Summary Date of Service October 05, 2023 Notes For Next Care Provider Medication Changes From Visit Diclofenac 50mg BID oxycodone-APAP7.5/325 q 4h hours, 7 tabs prn tamsulosin 04.mg daily Pyridium 200mg TID prn Admission HPI Per Admitting Provider 48-year-old male with past medical history significant for type 1 diabetes on insulin pump, hypothyroidism, polyglandular autoimmune syndrome, hyperlipidemia, diabetic retinopathy, asthma mild persistent, allergic sinusitis, celiac disease, sleepwalking and eating, attention 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 hyperactivity, history of kidney stones, bipolar 2 disorder presents with right renal colic. Patient states he is having right flank pain going on for the last 10 days. Pain is disturbing his sleep. As the pain is not getting better and also recently noted some blood in the urine and burning micturition came to the ER today. When he came in pain was 7/10 in severity. Currently after pain medication pain is improved. Normal bowel movements. Denies any fevers. No chest pain or shortness of breath. No cough. No headache. No runny nose or sore throat. Resting comfortably and hemodynamically stable. Past medical history. As mentioned above Past surgical history. Colonoscopy and EGD. Foot surgery. Removal of kidney stone, over 2 cm in 2005. Social history. . No smoking. Alcohol socially. No drug use. Family history. Father had dementia. Diabetes. Kidney stones. Mother had a heart attack at age 68. Maternal grandmother had breast cancer. Admission Exam Per Admitting Provider General- Not in distress Head- atraumatic Eyes- PERRL. ENT- oropharynx clear Neck- supple, no JVD. Lungs- clear to auscultation no wheezing or crackles. Heart- regular rhythm; no murmur, no gallop. Abdomen- normal bowel sounds, soft, nontender, no distension. Extremities- no pretibial edema, no erythema seen. Neuro- alert, oriented PERRL no facial palsy; no dysarthria; Principal Dx & Hospital Course #1 = Principal Diagnosis (1) Renal colic: Mr. Vasquez is a 48-year-old male with past medical history significant for type 1 diabetes on insulin pump, hypothyroidism, polyglandular autoimmune syndrome, hyperlipidemia, diabetic retinopathy, asthma mild persistent, allergic sinusitis, celiac disease, sleepwalking and eating, attention 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 hyperactivity, history of kidney stones, bipolar 2 disorder presents w ith right renal colic. Was noted to have large right obstructing stone. Patient underwent cytoscopy, stone removal, and stent placement on 10/03. Patient stable postoperatively. #Right nephrolithiasis with right hydronephrosis CT scan showing mild right hydronephrosis secondary to 5 x 10 mm distal right ureteral calculus s/p cystoscopy and stent placement 10/03 -Start tamsulosin 0.4mg daily -Start pyridium 200mg TID prn -Start Diclofenac 50mg BID -Small course oxy for breakthrough #Abnormal UA, Possible UTI,r/o No reflex to culture, discontinue abx #Type 1 diabetes Resume on insulin pump #Asthma Continue home inhalers #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 hyperactivity #Bipolar 2 disorder Continue home medications #Hypothyroidism On Synthyroid #GERD On omeprazole On day of discharge, patient doing much better with pain control. Denies any acute concerns. Denies any hematuria or issues passing urine. Discharge Exam Constitutional WD/WN, vitals as above Respiratory normal respiratory effort, lungs clear to auscultation Cardiovascular RRR, no murmur, no edema Gastrointestinal (Abdomen) normal bowel sounds, soft, nontender, no hepatosplenomegaly Updated Medication List Medication Instructions Recorded Confirmed Type bupropion HCl 300 mg 24 hr tablet, 300 mg PO QAM 09/18/18 10/03/23 History extended release (Wellbutrin XL) dextroamphetamine-amphetamine 20 20 mg PO QAM 09/18/18 10/03/23 History mg tablet (Adderall) levothyroxine 100 mcg tablet 100 mcg PO DAILY 09/18/18 10/04/23 History (Synthroid) lorazepam 0.5 mg tablet (Ativan) 0.5 mg PO DAILY PRN Anxiety 09/18/18 10/04/23 History quetiapine 150 mg tablet,extended 150 mg PO HS 09/18/18 10/04/23 History release 24 hr (Seroquel XR) insulin aspart U-100 100 unit/mL 70 unit continuous subcutaneous 10/03/23 10/03/23 History subcutaneous solution infusion DAILY omega-3 fatty acids 1,000 mg 1,000 mg PO BID 10/03/23 10/04/23 History capsule albuterol sulfate 90 mcg/actuation 2 puff inhalation Q4H PRN Wheezing 10/04/23 10/04/23 History aerosol inhaler atorvastatin 20 mg tablet 20 mg PO QAM 10/04/23 10/04/23 History benzonatate 100 mg capsule 100 mg PO TID PRN Cough 10/04/23 10/04/23 History fexofenadine 180 mg tablet 180 mg PO DAILY PRN Allergy 10/04/23 10/04/23 History Symptoms fluticasone 250 mcg-salmeterol 50 1 inh inhalation BID 10/04/23 10/04/23 History mcg/dose blistr powdr for inhalation fluticasone propionate 50 2 spray intranasal DAILY 10/04/23 10/04/23 History mcg/actuation nasal spray,suspension ketoconazole 2 % shampoo 1 applic topical .2XW 10/04/23 10/04/23 History lamotrigine 200 mg tablet 200 mg PO DAILY 10/04/23 10/04/23 History omeprazole 20 mg capsule,delayed 20 mg PO DAILYBB 10/04/23 10/04/23 History release selenium sulfide 2.5 % lotion 1 applic topical DAILY 10/04/23 10/04/23 History sildenafil 50 mg tablet 50 mg PO .UD PRN Sexual Activity 10/04/23 10/04/23 History temazepam 30 mg capsule 30 mg PO HS PRN Insomnia 10/04/23 10/04/23 History diclofenac sodium 25 mg 50 mg (2 x 25 mg) PO BID PRN pain 10/05/23 Rx tablet,delayed release #30 tabs oxycodone-acetaminophen 7.5 mg-325 1 tab PO Q4H PRN breakthrough 10/05/23 Rx mg tablet (Endocet) pain, severe #7 tabs phenazopyridine 200 mg tablet 200 mg PO TID PRN bladder spasms 10/05/23 Rx (Pyridium) #14 tabs tamsulosin 0.4 mg capsule 0.4 mg PO QAM #30 caps 10/05/23 Rx Hospital Stay Data Consultations 10/03/23 22:32 ED Decision to Admit Stat 10/04/23 08:00 Consult Urology Routine Procedures Performed Operation Date: 10/04/23 07:00 Actual Procedures p Cystoscopy, Right Retrograde Pyelogram, Right Ureteroscopy, Lithotripsy, stome basket extraction, (Right) - Alfonso Bowens DO s Right Stent(Right) - Alfonso H. Bowens, DO Diagnostic Imagining Performed 10/03/23 20:48 CT stones [CT abd pelvis wo con] Stat 10/04/23 [place] retrograde includes kub Routine Pending Results Patient Have Any Pending Studies at Discharge: Yes Discharge Instructions Given to Patient (Per Discharging Provider) You were admitted for right flank pain and found to have a large stone. It was removed on 10/03 with a stent put in place. You will coordinate with urology for stent removal. Here is the following recommended pain regimen: -Please take Tylenol (acetaminophen) 650mg every 4 to 6 hours around the clock. This will help with baseline pain control. -Please take Diclofenac 50mg up to two times a day for moderate-severe pain. This is longer acting anti-inflammatory. Please take with a meal. -A small supply of oxycodone-APAP will be sent (7 tablets) to use only for severe breakthrough pain when/if the above does not help ease your symptoms. -Please take pyridium up to three times a day if you feel as though you are experiencing spasms. This can aid with pain management. Please note it will turn your urine orange. -Please take tamsulosin 04.mg daily. Total Time Total Time Spent Total Time Spent (In Minutes): 45
[2023-10-05] MEDS ORDERED: DICLOFENAC SODIUM 25 MG TABDR PO SCH (12:05)
--- NOTE | 2023-10-07 07:26 | Fluoroscopy Report ---
FL retrograde includes kub CLINICAL HISTORY: RIGHT SIDE STENT COMPARISON STUDY: CT of the abdomen and pelvis October 03, 2023. FLUOROSCOPY TIME: 31 seconds. Ka, r: 7.78 mGy FLUOROSCOPIC IMAGES: 5 FINDINGS: Fluoroscopy was provided during right retrograde pyelogram with lithotripsy and right urete ral stent placement. Partially duplicated right collecting system is noted. Right ureteral stent is w ell-positioned. IMPRESSION: Fluoroscopy provided during right retrograde pyelogram with lithotripsy and right ureter al stent placement. ACT 112: Negative or not required by law. Electronically signed by: Judd Figueroa M.D. 10/07/2023 7:24 AM
== END 2023-10-05 13:26 | disposition home or self-care (01) | DRG 660 ==
LOC: ED 20:20 → 3N 10-04 00:38